=== PATIENT | female | born 1970 | race American Indian/Alaskan Native ===

== ENCOUNTER 2017-11-24 10:32 | Inpatient (IN) | payer OTHER ==
[2017-11-24] MEDS ORDERED: Vancomycin 1 GM 1 GM/250 ML BAG IV STA (11:14)
[2017-11-24] MEDS ORDERED: Cefepime IV 1 gm in Dextrose 1 GM/50 ML BAG IVPB STA (11:15)
[2017-11-24] MEDS ORDERED: Vancomycin 1 gm/NS 200 ml 1 GM/200 ML BAG IVPB STA (11:28)
[2017-11-24 11:40] LABS: BASO # 0.1 K/uL (0.0-0.2); BASO % 1.1 % (0.0-2.0); EOS # 0.1 K/uL (0.0-0.7); EOS % 0.7 % (0.0-4.0); HEMOGLOBIN 10.8 g/dL (11.0-16.0); LYMPH # 2.4 K/uL (1.0-4.3); MEAN CELL VOLUME 85.7 fL (81.0-99.0); MEAN CORPUSCULAR HEMOGLOBIN 29.9 pg (27.0-31.0); MEAN CORPUSCULAR HGB CONC 34.9 g/dL (33.0-37.0); MEAN PLATELET VOLUME 7.2 fL (7.2-11.7); MONO # 0.6 K/uL (0.0-0.8); MONO % 7.1 % (0.0-10.0); NEUT % 62.1 % (50.0-75.0); RBC 3.62 Mil/uL (3.80-5.20); RED CELL DISTRIBUTION WIDTH 14.6 % (11.5-14.5); WHITE BLOOD COUNT 8.1 K/uL (4.8-10.8)
[2017-11-24 12:37] LABS: ALB/GLOB RATIO 0.9 (1.0-2.1); ALBUMIN 3.5 g/dL (3.5-5.0); ALT/SGPT 13 U/L (9-52); AST/SGOT 21 U/L (14-36); BLOOD UREA NITROGEN 19 mg/dL (7-17); CALCIUM 8.7 mg/dl (8.6-10.4); GFR AFRICAN-AMERICAN > 60; GFR NON-AFRICAN AMERICAN 59
--- NOTE | 2017-11-24 12:54 | C.PDOC ---
History Of Present Illness 47 y/o female presents to ED with complaints of right foot pain and redness for unknown period of time ("months"). Patient states she saw her steersman recently (Dr. Ferreira) and was told she had cellulitis of the right foot "involving bone". He advised her to come to ED for admission. Patient admits to pain at the area; however denies fever, chills, sensory changes, falls/ injuries. Time Seen by Provider: 11/24/17 10:45 Chief Complaint (Nursing): Medical Clearance History Per: Patient History/Exam Limitations: no limitations Onset/Duration Of Symptoms: Persistent, Unknown (patient unsure of length of time) Current Symptoms Are (Timing): Still Present Severity: Moderate Past Medical History Reviewed: Historical Data, Nursing Documentation, Vital Signs Vital Signs: Last Vital Signs Temp 98.2 F 12/02/17 16:00 Pulse 86 12/02/17 16:00 Resp 20 12/02/17 16:00 BP 139/84 12/02/17 16:00 Pulse Ox 97 12/02/17 16:00 - Medical History PMH: HTN, Hypercholesterolemia Surgical History: No Surg Hx Family History: States: No Known Family Hx - Social History Hx Alcohol Use: Yes Hx Substance Use: No - Immunization History Hx Tetanus Toxoid Vaccination: No Hx Influenza Vaccination: Yes (07/2017) Hx Pneumococcal Vaccination: No Review Of Systems Except As Marked, All Systems Reviewed And Found Negative. Constitutional: Negative for: Fever, Chills Cardiovascular: Negative for: Chest Pain Respiratory: Negative for: Shortness of Breath Musculoskeletal: Positive for: Foot Pain Skin: Positive for: Other (Foot redness) Physical Exam - Physical Exam Appears: Well, Non-toxic, No Acute Distress Skin: Warm, Dry, No Rash Head: Normacephalic Eye(s): bilateral: Normal Inspection Oral Mucosa: Moist Neck: Supple Cardiovascular: Rhythm Regular Respiratory: Normal Breath Sounds, No Rales, No Rhonchi, No Wheezing Gastrointestinal/Abdominal: Normal Exam, Bowel Sounds, Soft, No Tenderness Extremity: No Deformity, Other (Lymphedema bialteral LEs) Extremity: Right: Other (Medial aspect of MTP joint with 2cm open wound. Erythematous & TTP), Bilateral: Normal ROM Pulses: Left Dorsalis Pedis: Normal, Right Dorsalis Pedis: Normal Neurological/Psych: Oriented x3, Normal Motor, Normal Sensation ED Course And Treatment - Laboratory Results Result Diagrams: 12/02/17 05:27 12/02/17 05:27 O2 Sat by Pulse Oximetry: 96 (RA) Pulse Ox Interpretation: Normal - Other Rad right foot Xray X-Ray: Interpreted by Me, Viewed By Me (no gas, no fx/dislocation, (+) soft tissue swelling) Progress Note: Blood work, Right foot xray ordered and reviewed. Patient given IV Vancomycin, IV Cefepime. - Physician Consult Information Physician Contacted: Randall Jamil Outcome Of Conversation: Discussed patient with Dr. Jamil, agrees with admission for foot celllulitis, possible osteomyelitis. Dr. Ferreira podiatry consult entered. Disposition - Disposition Disposition: HOSPITALIZED Disposition Time: 13:29 Condition: STABLE - Clinical Impression Clinical Impression: Cellulitis of right foot, Lymphedema, Osteomyelitis - Scribe Statement The provider has reviewed the documentation as recorded by the Tomaibmichael Murphy All medical record entries made by the Scribe were at my direction and personally dictated by me. I have reviewed the chart and agree that the record accurately reflects my personal performance of the history, physical exam, medical decision making, and the department course for this patient. I have also personally directed, reviewed, and agree with the discharge instructions and disposition. Decision To Admit - Pt Status Changed To: Hospital Disposition Of: Inpatient - Admit Certification Admit to Inpatient:: After my assessment, the patient will require hospitalization for at least two midnights. This is because of the severity of symptoms shown, intensity of services needed, and/or the medical risk in this patient being treated as an outpatient. - InPatient: Physician Admission Certification: I certify that this patient requires 2 or more midnights of care for the following reason:: see notes - . Bed Request Type: Regular Admitting Physician: Randall Jamil Patient Diagnosis: Cellulitis of right foot, Lymphedema, Osteomyelitis
--- NOTE | 2017-11-24 15:49 | RAD ---
PROCEDURE: Right Foot Radiographs. Two views. HISTORY: right medial foot wound COMPARISON: None available. FINDINGS: BONES: No acute displaced fracture. JOINTS: No dislocation. SOFT TISSUES: Extensive soft tissue swelling. Evidence of soft tissue irregularity or ulceration along the medial soft tissues at the level of the 1st PIP. Dense vascular calcification. No evidence of radiopaque foreign body. OTHER FINDINGS: None. IMPRESSION: Extensive soft tissue swelling. Evidence of soft tissue irregularity or ulceration along the medial soft tissues at the level of the 1st PIP.
[2017-11-24] MEDS ORDERED: Albuterol HFA 90 mcg/actuation (8 g) IH PRN (19:47)
[2017-11-24] MEDS ORDERED: Pneumococcal 23-Valent Vaccine IM ONE (20:30)
[2017-11-24] MEDS: Vancomycin 1 gm/NS 200 ml 1 GM/200 ML BAG IVPB SCH (21:55)
[2017-11-24] MEDS ORDERED: Potassium Chloride 20 mEq/15 ml LIQ UD PO ONE (22:00)
[2017-11-25 06:14] LABS: BASO # 0.1 K/uL (0.0-0.2); BASO % 0.8 % (0.0-2.0); EOS # 0.1 K/uL (0.0-0.7); EOS % 0.9 % (0.0-4.0); HEMOGLOBIN 10.1 g/dL (11.0-16.0); LYMPH # 2.6 K/uL (1.0-4.3); MEAN CELL VOLUME 86.3 fL (81.0-99.0); MEAN CORPUSCULAR HEMOGLOBIN 29.4 pg (27.0-31.0); MEAN PLATELET VOLUME 7.6 fL (7.2-11.7); MONO # 0.4 K/uL (0.0-0.8); MONO % 5.3 % (0.0-10.0); NEUT # 4.6 K/uL (1.8-7.0); RBC 3.44 Mil/uL (3.80-5.20); RED CELL DISTRIBUTION WIDTH 14.8 % (11.5-14.5); WHITE BLOOD COUNT 7.7 K/uL (4.8-10.8)
[2017-11-25 06:31] LABS: ALB/GLOB RATIO 0.9 (1.0-2.1); ALBUMIN 3.1 g/dL (3.5-5.0); ALT/SGPT 21 U/L (9-52); AST/SGOT 23 U/L (14-36); BLOOD UREA NITROGEN 14 mg/dL (7-17); CALCIUM 8.5 mg/dl (8.6-10.4); GFR AFRICAN-AMERICAN > 60; GFR NON-AFRICAN AMERICAN > 60
--- NOTE | 2017-11-25 09:29 | CP.PCM.CON ---
<Arpit Ferreira - Last Filed: 11/25/17 09:47> History of Present Illness - History of Present Illness History of Present Illness: 47 year old female admitted for non healing wound chronic in nature and cellulitis right leg and worsening painful edema of right leg over last 2 weeks. Review of Systems - Cardiovascular Cardiovascular: Leg Edema - Musculoskeletal Musculoskeletal: Joint Swelling - Integumentary Integumentary: Skin Ulcer Past Patient History - Past Medical History & Family History Past Medical History?: Yes - Past Social History Smoking Status: Never Smoked - CARDIAC Hx Cardiac Disorders: Yes Hx Hypercholesterolemia: Yes Hx Hypertension: Yes - PULMONARY Hx Respiratory Disorders: No - NEUROLOGICAL Hx Neurological Disorder: No - HEENT Hx HEENT Problems: No - RENAL Hx Chronic Kidney Disease: No - ENDOCRINE/METABOLIC Hx Endocrine Disorders: Yes Hx Diabetes Mellitus Type 2: Yes - HEMATOLOGICAL/ONCOLOGICAL Hx Blood Disorders: No - INTEGUMENTARY Hx Dermatological Problems: No - MUSCULOSKELETAL/RHEUMATOLOGICAL Hx Falls: No - GASTROINTESTINAL Hx Gastrointestinal Disorders: No - GENITOURINARY/GYNECOLOGICAL Hx Genitourinary Disorders: No - PSYCHIATRIC Hx Substance Use: No - SURGICAL HISTORY Hx Surgeries: Yes Hx Orthopedic Surgery: Yes (Right toe, Left foot) - ANESTHESIA Hx Anesthesia: Yes Hx Anesthesia Reactions: No Hx Malignant Hyperthermia: No Has any member of the family had a problem w/ anesthesia?: No Meds Allergies/Adverse Reactions: Allergies Allergy/AdvReac Type Severity Reaction Status Date / Time No Known Allergies Allergy Verified 11/24/17 10:39 - Medications Medications: Current Medications Albuterol (Ventolin Hfa 90 Mcg/Actuation (8 G)) 2 puff IH RQ6 PRN PRN Reason: Wheezing Amlodipine Besylate (Norvasc) 10 mg PO DAILY [facility] Furosemide (Lasix) 40 mg PO DAILY [facility] Heparin Sodium (Porcine) (Heparin) 5,000 units SC Q12 [facility] Vancomycin/Sodium Chloride (Vancomycin 1 Gm/Ns 200 Ml) 1 gm in 200 mls @ 133 mls/hr IVPB Q12H [facility] Stop: 11/29/17 21:01 Last Admin: 11/24/17 21:55 Dose: 133 mls/hr Magnesium Sulfate/Dextrose (Magnesium Sulfate 1 Gm/100 Ml D5w) 1 gm in 100 mls @ 200 mls/hr IVPB Q30M [facility] Stop: 11/25/17 10:29 Levetiracetam (Keppra) 500 mg PO BID [facility] Losartan Potassium (Cozaar) 100 mg PO DAILY [facility] Metformin HCl (Glucophage) 1,000 mg PO BID [facility] Potassium Chloride (Potassium Chloride Oral Soln) 40 meq PO Q4H [facility] Stop: 11/25/17 15:01 Rosuvastatin Calcium (Crestor) 10 mg PO DAILY [facility] Physical Exam - Extremities Exam Additional comments: O/chronic non-healing wound right mpj 1 right . Cellulitis right leg Increased Lymphedema right leg with Calf pain . LEFT LEG LYMPHEDEMA NO PAIN .XRAY SOFT TISSUE DEFECT WITH SWELLING AND VASCULAR CALCIFICATION . DIABETIC NEUROPATHY B/L . AMPUTATION TOE 2 LEFT 2010. Results - Vital Signs Recent Vital Signs: Last Vital Signs Temp 98.1 F 11/25/17 07:58 Pulse 75 11/25/17 07:58 Resp 20 11/25/17 07:58 BP 142/71 11/25/17 07:58 Pulse Ox 97 11/25/17 07:58 - Labs Result Diagrams: 11/25/17 06:06 11/25/17 06:06 Labs: Laboratory Results - last 24 hr 11/24/17 11/24/17 11/24/17 11:36 12:17 17:23 WBC 8.1 RBC 3.62 L Hgb 10.8 L Hct 31.0 L MCV 85.7 MCH 29.9 MCHC 34.9 RDW 14.6 H Plt Count 366 MPV 7.2 Neut % (Auto) 62.1 Lymph % (Auto) 29.0 [place] % (Auto) 7.1 Eos % (Auto) 0.7 Baso % (Auto) 1.1 Neut # (Auto) 5.0 Lymph # (Auto) 2.4 [place] # (Auto) 0.6 Eos # (Auto) 0.1 Baso # (Auto) 0.1 ESR 63 H Sodium 135 Potassium 3.5 L Chloride 98 Carbon Dioxide 22 Anion Gap 19 BUN 19 H Creatinine 1.0 Est GFR ( Amer) > 60 Est GFR (Non-Af Amer) 59 POC Glucose (mg/dL) 258 H Random Glucose 312 H Calcium 8.7 Phosphorus Magnesium Total Bilirubin 0.5 AST 21 ALT 13 Alkaline Phosphatase 85 Total Protein 7.5 Albumin 3.5 Globulin 4.0 H Albumin/Globulin Ratio 0.9 L 11/24/17 11/25/17 11/25/17 21:32 06:06 06:06 WBC 7.7 RBC 3.44 L Hgb 10.1 L Hct 29.6 L MCV 86.3 MCH 29.4 MCHC 34.0 RDW 14.8 H Plt Count 317 MPV 7.6 Neut % (Auto) 60.0 Lymph % (Auto) 33.0 [place] % (Auto) 5.3 Eos % (Auto) 0.9 Baso % (Auto) 0.8 Neut # (Auto) 4.6 Lymph # (Auto) 2.6 [place] # (Auto) 0.4 Eos # (Auto) 0.1 Baso # (Auto) 0.1 ESR Sodium 137 Potassium 3.2 L Chloride 100 Carbon Dioxide 26 Anion Gap 15 BUN 14 Creatinine 0.9 Est GFR ( Amer) > 60 Est GFR (Non-Af Amer) > 60 POC Glucose (mg/dL) 323 H Random Glucose 225 H Calcium 8.5 L Phosphorus 3.4 Magnesium 1.3 L Total Bilirubin 0.3 AST 23 ALT 21 Alkaline Phosphatase 78 Total Protein 6.7 Albumin 3.1 L Globulin 3.6 Albumin/Globulin Ratio 0.9 L 11/25/17 07:15 WBC RBC Hgb Hct MCV MCH MCHC RDW Plt Count MPV Neut % (Auto) Lymph % (Auto) [place] % (Auto) Eos % (Auto) Baso % (Auto) Neut # (Auto) Lymph # (Auto) [place] # (Auto) Eos # (Auto) Baso # (Auto) ESR Sodium Potassium Chloride Carbon Dioxide Anion Gap BUN Creatinine Est GFR ( Amer) Est GFR (Non-Af Amer) POC Glucose (mg/dL) 208 H Random Glucose Calcium Phosphorus Magnesium Total Bilirubin AST ALT Alkaline Phosphatase Total Protein Albumin Globulin Albumin/Globulin Ratio Assessment & Plan - Assessment and Plan (Free Text) Assessment: A/NON-HEALING WOUND CHRONIC MPJ 1 WITH INFECTION . LYMPHEDEMA Plan: P/VENOUS DUPLEX SCAN MRI ORDERED .C&S OF WOUND . VANCOMYCIN STARTED <Yue Juárez - Last Filed: 11/25/17 13:26> History of Present Illness - History of Present Illness History of Present Illness: Patient is well known to Dr. Ferreira. She presents with chronic open ulceration to medial aspect of right 1st MTPJ. Patient also complains of Right calf pain. Patient was informed that venous Doppler will be performed to r/o DVT. Patient denies of any N/V/F/C or SOB today Review of Systems - Constitutional Constitutional: As Per HPI Meds - Medications Medications: Current Medications Acetaminophen (Tylenol 325mg Tab) 650 mg PO Q8 PRN PRN Reason: Pain, Mild (1-3) Last Admin: 11/25/17 12:45 Dose: 650 mg Albuterol (Ventolin Hfa 90 Mcg/Actuation (8 G)) 2 puff IH RQ6 PRN PRN Reason: Wheezing Amlodipine Besylate (Norvasc) 10 mg PO DAILY [facility] Last Admin: 11/25/17 11:05 Dose: 10 mg Furosemide (Lasix) 40 mg PO DAILY [facility] Last Admin: 11/25/17 11:12 Dose: 40 mg Heparin Sodium (Porcine) (Heparin) 5,000 units SC Q12 [facility] Last Admin: 11/25/17 11:10 Dose: 5,000 units Vancomycin/Sodium Chloride (Vancomycin 1 Gm/Ns 200 Ml) 1 gm in 200 mls @ 133 mls/hr IVPB Q12H [facility] Stop: 11/29/17 21:01 Last Admin: 11/25/17 11:14 Dose: 133 mls/hr Levetiracetam (Keppra) 500 mg PO BID [facility] Last Admin: 11/25/17 11:09 Dose: 500 mg Losartan Potassium (Cozaar) 100 mg PO DAILY [facility] Last Admin: 11/25/17 11:11 Dose: 100 mg Metformin HCl (Glucophage) 1,000 mg PO BID [facility] Last Admin: 11/25/17 11:10 Dose: 1,000 mg Potassium Chloride (Potassium Chloride Oral Soln) 40 meq PO Q4H [facility] Stop: 11/25/17 15:01 Last Admin: 11/25/17 11:04 Dose: 40 meq Rosuvastatin Calcium (Crestor) 10 mg PO DAILY [facility] Last Admin: 11/25/17 11:11 Dose: 10 mg Physical Exam - Constitutional Appears: Well, Non-toxic, No Acute Distress - Head Exam Head Exam: ATRAUMATIC - Extremities Exam Additional comments: Right lower extremity exam DERM: Open wound noted to medial aspect of right 1st MTPJ measuring 3m x 3cm x 0.3cm with mostly fibrotic base. Mild serous drainage is noted from th wound. No purulent discharge noted. Wound margins appears slightly necrotic with dark discolorations, not dried blood. No mal-odor present. - Neurological Exam Neurological exam: Alert, Oriented x3 - Psychiatric Exam Psychiatric exam: Normal Affect, Normal Mood - Skin Skin Exam: Normal Color, Warm Results - Vital Signs Recent Vital Signs: Last Vital Signs Temp 98.1 F 11/25/17 07:58 Pulse 75 11/25/17 07:58 Resp 20 11/25/17 07:58 BP 142/72 11/25/17 11:12 Pulse Ox 97 11/25/17 07:58 - Labs Result Diagrams: 11/25/17 06:06 11/25/17 06:06 Labs: Laboratory Results - last 24 hr 11/24/17 11/24/17 11/25/17 17:23 21:32 06:06 WBC 7.7 RBC 3.44 L Hgb 10.1 L Hct 29.6 L MCV 86.3 MCH 29.4 MCHC 34.0 RDW 14.8 H Plt Count 317 MPV 7.6 Neut % (Auto) 60.0 Lymph % (Auto) 33.0 [place] % (Auto) 5.3 Eos % (Auto) 0.9 Baso % (Auto) 0.8 Neut # (Auto) 4.6 Lymph # (Auto) 2.6 [place] # (Auto) 0.4 Eos # (Auto) 0.1 Baso # (Auto) 0.1 Sodium Potassium Chloride Carbon Dioxide Anion Gap BUN Creatinine Est GFR ( Amer) Est GFR (Non-Af Amer) POC Glucose (mg/dL) 258 H 323 H Random Glucose Calcium Phosphorus Magnesium Total Bilirubin AST ALT Alkaline Phosphatase Total Protein Albumin Globulin Albumin/Globulin Ratio 11/25/17 11/25/17 06:06 07:15 WBC RBC Hgb Hct MCV MCH MCHC RDW Plt Count MPV Neut % (Auto) Lymph % (Auto) [place] % (Auto) Eos % (Auto) Baso % (Auto) Neut # (Auto) Lymph # (Auto) [place] # (Auto) Eos # (Auto) Baso # (Auto) Sodium 137 Potassium 3.2 L Chloride 100 Carbon Dioxide 26 Anion Gap 15 BUN 14 Creatinine 0.9 Est GFR ( Amer) > 60 Est GFR (Non-Af Amer) > 60 POC Glucose (mg/dL) 208 H Random Glucose 225 H Calcium 8.5 L Phosphorus 3.4 Magnesium 1.3 L Total Bilirubin 0.3 AST 23 ALT 21 Alkaline Phosphatase 78 Total Protein 6.7 Albumin 3.1 L Globulin 3.6 Albumin/Globulin Ratio 0.9 L Assessment & Plan - Assessment and Plan (Free Text) Plan: Patient was seen, evaluated by bedside this AM Labs and Vitals reviewed Right foot dressed wiht Xeroform, DSD Xray - no mention of OM MRI result pending Arterial doppler pending Venous doppler pending WCX pending Continue IV Abx Podiatry will continue to follow in house
[2017-11-25] MEDS ORDERED: Influenza Vaccine 60 mcg/0.5 mL SYR (4YR UP) IM ONE (10:00)
[2017-11-25] MEDS: Vancomycin 1 gm/NS 200 ml 1 GM/200 ML BAG IVPB SCH ×3 (10:51→21:45)
[2017-11-25] MEDS: Potassium Chloride 20 mEq/15 ml LIQ UD PO SCH ×2 (11:04→15:18)
[2017-11-25] MEDS: Magnesium Sulfate 1 gm in D5W 1 GM/100 ML BAG IVPB SCH (11:12)
--- NOTE | 2017-11-25 13:28 | VASCLAB ---
PROCEDURE: HISTORY: Right lower extremity pain. COMPARISON: None available. TECHNIQUE: Grayscale and duplex Doppler evaluation of the right common femoral, femoral, profunda femoral, popliteal, posterior tibial, anterior tibial and dorsalis pedis arteries was performed. Report prepared by SHERWIN Villafuerte FINDINGS: RIGHT LOWER EXTREMITY: * Common Femoral Artery: Peak Systolic Velocity - : Doppler Waveform: Triphasic.: Plaque description - * Profunda Femoral Artery: Peak Systolic Velocity - : Doppler Waveform: Biphasic.: Plaque description - * Femoral Artery o Proximal Segment: Peak Systolic Velocity - : Doppler Waveform: Monophasic: Plaque description - o Middle Segment: Peak Systolic Velocity - : Doppler Waveform: Monophasic: Plaque description - o Distal Segment: Peak Systolic Velocity - : Doppler Waveform: Monophasic: Plaque description - * Popliteal Artery o Proximal Segment: Peak Systolic Velocity - : Doppler Waveform: Monophasic: Plaque description - o Middle Segment: Peak Systolic Velocity - : Doppler Waveform: Monophasic: Plaque description - o Distal Segment: Peak Systolic Velocity - : Doppler Waveform: Monophasic: Plaque description - * Posterior Tibial Artery: * Anterior Tibial Artery: Peak Systolic Velocity - : Doppler Waveform: Monophasic: Plaque description - OTHER FINDINGS: Technically difficult examination due to patient body habitus. IMPRESSION: There is no evidence of hemodynamically significant arterial insufficiency in the right lower extremity.
--- NOTE | 2017-11-25 15:30 | CP.PCM.PN ---
Subjective - Date & Time of Evaluation Date of Evaluation: 11/25/17 Time of Evaluation: 07:45 - Subjective Subjective: PGY2 Resident - Medicine Progress Note This 47 y/o female with PMHx of HTN, HLD, DM, Anemia, Chronic R lower extremity Lymphadenopathy (4 years), and Cellulitis of the R foot x 6 months - presents to the ED on 11/24/17 with complaints of right foot pain and redness for approximately 6 months. Patient states she saw [facility] recently and was told she had celulitis on right foot involving the bone. Tunnel Man Dr. Ferreira advised patient she come to ED for admission. At ED patient admits pain to area and denies fever, chills, numbness, weakness or any other complaints at this time. Patient seen and examined at bedside. No acute distress. No overnight events. Patient complains of pain of the R lower extremity, at both the foot and lower mcmanus (marked lymphadenopathy present for nearly 4 years). The right foot is wrapped in gauze. She is tolerating her diet and awaiting further evaluation by Dr. Ferreira. Denies f/c, lethargy, n/v, or d/c. 12-point review of systems is otherwise negative without any additional acute complaints. PMHx: HTN, HLD, DM, Anemia, Chronic R lower extremity Lymphadenopathy (4 years) , and Cellulitis of the R foot x 6 months PSHx: L 2nd toe amputation Meds: see EMR NKDA FamHx: denies Objective - Vital Signs/Intake and Output Vital Signs (last 24 hours): Temp Pulse Resp BP Pulse Ox 98.1 F 75 20 142/72 97 11/25/17 07:58 11/25/17 07:58 11/25/17 07:58 11/25/17 11:12 11/25/17 07:58 Intake and Output: 11/25/17 11/25/17 06:59 18:59 Intake Total 920 Balance 920 - Medications Medications: Current Medications Acetaminophen (Tylenol 325mg Tab) 650 mg PO Q8 PRN PRN Reason: Pain, Mild (1-3) Last Admin: 11/25/17 12:45 Dose: 650 mg Albuterol (Ventolin Hfa 90 Mcg/Actuation (8 G)) 2 puff IH RQ6 PRN PRN Reason: Wheezing Amlodipine Besylate (Norvasc) 10 mg PO DAILY [facility] Last Admin: 11/25/17 11:05 Dose: 10 mg Furosemide (Lasix) 40 mg PO DAILY [facility] Last Admin: 11/25/17 11:12 Dose: 40 mg Heparin Sodium (Porcine) (Heparin) 5,000 units SC Q12 [facility] Last Admin: 11/25/17 11:10 Dose: 5,000 units Vancomycin/Sodium Chloride (Vancomycin 1 Gm/Ns 200 Ml) 1 gm in 200 mls @ 133 mls/hr IVPB Q12H [facility] Stop: 11/29/17 21:01 Last Admin: 11/25/17 11:14 Dose: 133 mls/hr Levetiracetam (Keppra) 500 mg PO BID [facility] Last Admin: 11/25/17 11:09 Dose: 500 mg Losartan Potassium (Cozaar) 100 mg PO DAILY [facility] Last Admin: 11/25/17 11:11 Dose: 100 mg Metformin HCl (Glucophage) 1,000 mg PO BID [facility] Last Admin: 11/25/17 11:10 Dose: 1,000 mg Rosuvastatin Calcium (Crestor) 10 mg PO DAILY [facility] Last Admin: 11/25/17 11:11 Dose: 10 mg - Labs Labs: 11/25/17 06:06 11/25/17 06:06 - Constitutional Appears: Non-toxic, No Acute Distress - Head Exam Head Exam: ATRAUMATIC, NORMAL INSPECTION - Eye Exam Eye Exam: Normal appearance, Periorbital tenderness Pupil Exam: NORMAL ACCOMODATION - ENT Exam ENT Exam: Mucous Membranes Moist - Neck Exam Neck Exam: Full ROM. absent: Tenderness - Respiratory Exam Respiratory Exam: Clear to Ausculation Bilateral, NORMAL BREATHING PATTERN. absent: Wheezes - Cardiovascular Exam Cardiovascular Exam: REGULAR RHYTHM, +S1, +S2 - GI/Abdominal Exam GI & Abdominal Exam: Soft, Normal Bowel Sounds. absent: Tenderness - Extremities Exam Extremities Exam: Pedal Edema (R), Tenderness (R) Additional comments: -medial aspect of right 1st MTPJ measuring 3m x 3cm x 0.3cm with mostly fibrotic base; serous drainage -R foot / calf edema, non-pitting 2/2 lymphedema (chronic), tender to palpation - Back Exam Back Exam: NORMAL INSPECTION. absent: CVA tenderness (L), CVA tenderness (R) - Neurological Exam Neurological Exam: Alert, Awake, Oriented x3 - Psychiatric Exam Psychiatric exam: Normal Affect, Normal Mood - Skin Skin Exam: Dry, Intact, Normal Color Assessment and Plan - Assessment and Plan (Free Text) Assessment: Osteomyelitis of R Foot 11/25: afebrile; Podiatry Consult, Dr. Ferreira, f/u recs - Lymphedema of R Foot (chronic) Tylenol 325mg Tab) 650 mg PO Q8 PRN Vancomycin 1 Gm/Ns 200 Ml) 1 gm in 200 mls @ 133 mls/hr IVPB Q12H [facility] Right foot dressed wiht Xeroform, DSD Xray - no mention of OM f/u MRI result f/u Arterial doppler f/u Venous doppler f/u wound culture Hypertension 11/25: 146/75 - WNL, monitor. Norvasc) 10 mg PO DAILY [facility] Lasix) 40 mg PO DAILY [facility] Cozaar) 100 mg PO DAILY [facility] HLD Crestor) 10 mg PO DAILY [facility] Diabetes Glucophage) 1,000 mg PO BID [facility] Novolog ISS - medium dose hold Lantus Anemia Hgb 10.1 - stable, continue to monitor Electrolyte Imbalance -Hypokalemia, K 3.2 - monitor and replete -Hypomagnesemia, Mg 1.3 - monitor and replete Prophylaxis Ventolin Hfa 90 Mcg/Actuation (8 G)) 2 puff IH RQ6 PRN Heparin) 5,000 units SC Q12 [facility] Pepcid 20mg PO qD Case discussed with attending. All medical management as per Dr. Sean Wagner.
--- NOTE | 2017-11-25 16:32 | MRI ---
MRI right forefoot History: Infection. Comparison: X-ray dated 11/24/2017 Technique: Multi-echo multiplanar sequences were performed through the right forefoot without the use of intravenous contrast. Findings: Marked reticulation and edema seen within the dorsal soft tissues of the mid and forefoot which may represent an underlying cellulitis. Prominent soft tissue ulceration seen at the medial soft tissues at the level of the 1st proximal phalanx. Moderate to severe hallux valgus deformity. Prominent degenerative changes noted at the 1st MTP joint space with subchondral sclerosis and osteophytosis. Small rounded focal area of increased STIR and decreased T1 signal noted at the 1st metatarsal head near the articulation with the medial sesamoid bone. Additional minimal increased signal seen at the medial head of the 1st metatarsal bone. This may be the sequelae of osteochondral change or developing subchondral cyst formation versus inflammatory changes versus infectious changes versus additional etiology. Subtle and or early acute developing osteomyelitic changes cannot entirely be excluded at this level. Clinical correlation. Focal signal abnormality within the 2nd distal phalanx with decreased T1 signal and increased STIR signal which would be concerning for possible acute osteomyelitis. Clinical correlation. Additional reactive edema without gross corresponding decreased T1 signal seen at the 2nd middle phalanx which may represent developing and or early acute osteomyelitic changes. Clinical correlation. Prominent degenerative changes in the midfoot. Impression: 1. Focal signal abnormality within the 2nd distal phalanx with decreased T1 signal and increased STIR signal which would be concerning for possible acute osteomyelitis. Clinical correlation. Additional reactive edema without gross corresponding decreased T1 signal seen at the 2nd middle phalanx which may represent developing and or early acute osteomyelitic changes. Clinical correlation. 2. Prominent soft tissue ulceration seen at the medial soft tissues at the level of the 1st proximal phalanx. Moderate to severe hallux valgus deformity. Prominent degenerative changes noted at the 1st MTP joint space with subchondral sclerosis and osteophytosis. Small rounded focal area of increased STIR and decreased T1 signal noted at the 1st metatarsal head near the articulation with the medial sesamoid bone. Additional minimal increased signal seen at the medial head of the 1st metatarsal bone. This may be the sequelae of osteochondral change or developing subchondral cyst formation versus inflammatory changes versus infectious changes versus additional etiology. Subtle and or early acute developing osteomyelitic changes cannot entirely be excluded at this level. Clinical correlation. 3. Marked reticulation and edema seen within the dorsal soft tissues of the mid and forefoot which may represent an underlying cellulitis.
[2017-11-25] MEDS: (Novolog) Insulin Aspart, Recombinant 100 u/ml 10 ml vial SC SCH ×2 (17:22→21:45)
--- NOTE | 2017-11-26 06:15 | HP ---
HISTORY: A 47-year-old female admitted to the hospital with complaints of redness of the left foot. The patient has history of diabetes, insulin dependent. She is on NovoLog, Levemir. The patient is followed up by a customer equipment engineer, Dr. Ferreira, The patient has a history of lymphedema in the right lower extremity. PHYSICAL EXAMINATION: GENERAL: The patient is awake, alert. and obese. VITAL SIGNS: Temperature of 98, pulse of 90. HEENT: Within normal limits. NECK: Supple. CHEST: Symmetrical. HEART: Regular. ABDOMEN: Soft. EXTREMITIES; There is a nonpitting edema in the right leg, right foot in dressing. IMPRESSION: Osteomyelitis of the right foot. The patient will get IV antibiotics, infectious disease consult, podiatry consult. Randall Wagner MD
[2017-11-26 06:26] LABS: BASO # 0.1 K/uL (0.0-0.2); BASO % 0.8 % (0.0-2.0); EOS # 0.1 K/uL (0.0-0.7); EOS % 1.1 % (0.0-4.0); HEMOGLOBIN 10.7 g/dL (11.0-16.0); LYMPH # 2.7 K/uL (1.0-4.3); LYMPH % 35.6 % (20.0-40.0); MEAN CELL VOLUME 86.6 fL (81.0-99.0); MEAN CORPUSCULAR HEMOGLOBIN 31.6 pg (27.0-31.0); MEAN CORPUSCULAR HGB CONC 36.5 g/dL (33.0-37.0); MEAN PLATELET VOLUME 7.6 fL (7.2-11.7); MONO # 0.4 K/uL (0.0-0.8); MONO % 5.4 % (0.0-10.0); NEUT # 4.3 K/uL (1.8-7.0); NEUT % 57.1 % (50.0-75.0); NRBC % 0.2 % (0.0-2.0); RBC 3.39 Mil/uL (3.80-5.20); RED CELL DISTRIBUTION WIDTH 15.1 % (11.5-14.5); WHITE BLOOD COUNT 7.6 K/uL (4.8-10.8)
[2017-11-26 06:43] LABS: ALB/GLOB RATIO 0.9 (1.0-2.1); ALBUMIN 3.2 g/dL (3.5-5.0); ALT/SGPT 20 U/L (9-52); AST/SGOT 27 U/L (14-36); BLOOD UREA NITROGEN 13 mg/dL (7-17); CALCIUM 8.8 mg/dl (8.6-10.4); GFR AFRICAN-AMERICAN > 60; GFR NON-AFRICAN AMERICAN > 60
[2017-11-26] MEDS: (Novolog) Insulin Aspart, Recombinant 100 u/ml 10 ml vial SC SCH ×4 (07:30→21:36)
--- NOTE | 2017-11-26 09:50 | CP.PCM.PN ---
Subjective - Date & Time of Evaluation Date of Evaluation: 11/26/17 Time of Evaluation: 07:40 - Subjective Subjective: PGY2 Resident - Medicine Progress Note Patient seen and examined at bedside. No acute distress. No overnight events. Patient reports pain of the R lower extremity is well controlled (osteomyelitis of the R foot and chronic lymphadenopathy of the R LE). The right foot is wrapped in gauze. She is tolerating her diet. Being followed by Dr. Ferreira. Denies f/c, lethargy, n/v, or d/c. 12-point review of systems is otherwise negative without any additional acute complaints. Objective - Vital Signs/Intake and Output Vital Signs (last 24 hours): Temp Pulse Resp BP Pulse Ox 98.3 F 72 20 147/75 97 11/26/17 08:00 11/26/17 08:00 11/26/17 08:00 11/26/17 08:00 11/26/17 08:00 Intake and Output: 11/26/17 11/26/17 06:59 18:59 Intake Total 360 Balance 360 - Medications Medications: Current Medications Acetaminophen (Tylenol 325mg Tab) 650 mg PO Q8 PRN PRN Reason: Pain, Mild (1-3) Last Admin: 11/25/17 12:45 Dose: 650 mg Albuterol (Ventolin Hfa 90 Mcg/Actuation (8 G)) 2 puff IH RQ6 PRN PRN Reason: Wheezing Amlodipine Besylate (Norvasc) 10 mg PO DAILY [facility] Last Admin: 11/25/17 11:05 Dose: 10 mg Famotidine (Pepcid) 20 mg PO DAILY [facility] Furosemide (Lasix) 40 mg PO DAILY [facility] Last Admin: 11/25/17 11:12 Dose: 40 mg Heparin Sodium (Porcine) (Heparin) 5,000 units SC Q12 [facility] Last Admin: 11/25/17 21:45 Dose: 5,000 units Vancomycin/Sodium Chloride (Vancomycin 1 Gm/Ns 200 Ml) 1 gm in 200 mls @ 133 mls/hr IVPB Q12H [facility] Stop: 11/29/17 21:01 Last Admin: 11/25/17 21:45 Dose: 133 mls/hr Magnesium Sulfate/Dextrose (Magnesium Sulfate 1 Gm/100 Ml D5w) 1 gm in 100 mls @ 200 mls/hr IVPB Q30M [facility] Stop: 11/26/17 17:59 Insulin Aspart (Novolog) 0 unit SC ACHS [facility] PRN Reason: Protocol Insulin Detemir (Levemir) 10 unit SC Q12H [facility] Levetiracetam (Keppra) 500 mg PO BID [facility] Last Admin: 11/25/17 17:21 Dose: 500 mg Losartan Potassium (Cozaar) 100 mg PO DAILY [facility] Last Admin: 11/25/17 11:11 Dose: 100 mg Metformin HCl (Glucophage) 1,000 mg PO BID [facility] Last Admin: 11/25/17 17:21 Dose: 1,000 mg Rosuvastatin Calcium (Crestor) 10 mg PO DAILY [facility] Last Admin: 11/25/17 11:11 Dose: 10 mg - Labs Labs: 11/26/17 06:16 11/26/17 06:16 - Additional Findings Additional findings: - Constitutional Appears: Non-toxic, No Acute Distress - Head Exam Head Exam: ATRAUMATIC, NORMAL INSPECTION - Eye Exam Eye Exam: Normal appearance, Periorbital tenderness Pupil Exam: NORMAL ACCOMODATION - ENT Exam ENT Exam: Mucous Membranes Moist - Neck Exam Neck Exam: Full ROM. absent: Tenderness - Respiratory Exam Respiratory Exam: Clear to Ausculation Bilateral, NORMAL BREATHING PATTERN. absent: Wheezes - Cardiovascular Exam Cardiovascular Exam: REGULAR RHYTHM, +S1, +S2 - GI/Abdominal Exam GI & Abdominal Exam: Soft, Normal Bowel Sounds. absent: Tenderness - Extremities Exam Extremities Exam: Pedal Edema (R), Tenderness (R) Additional comments: -medial aspect of right 1st MTPJ measuring 3m x 3cm x 0.3cm with mostly fibrotic base -R foot / calf edema, non-pitting 2/2 lymphedema (chronic), tender to palpation - Back Exam Back Exam: NORMAL INSPECTION. absent: CVA tenderness (L), CVA tenderness (R) - Neurological Exam Neurological Exam: Alert, Awake, Oriented x3 - Psychiatric Exam Psychiatric exam: Normal Affect, Normal Mood - Skin Skin Exam: Dry, Intact, Normal Color Assessment and Plan - Assessment and Plan (Free Text) Assessment: Osteomyelitis of R Foot 11/26: Afebrile. WBC 7.6. Patient did not receive last dose of Vanco 2/2 difficult needle stick (lost line). Awaiting PICC placement. MRI R Forefoot 11/25/17 - 2nd distal phalynx osteomyelitis; R foot cellulitis; 1st proximal phalynx soft tissue ulceration. see full report. Patient did not receive last dose of Vanco 2/2 difficult needle stick. She is awaiting placement of PICC line. Wound culture positive for - Corynebacterium (prelim) ID Consult, Dr. Deleon, f/u recs. 36: afebrile; Podiatry Consult, Dr. Ferreira, f/u recs - Lymphedema of R Foot (chronic) Tylenol 325mg Tab) 650 mg PO Q8 PRN Vancomycin 1 Gm/Ns 200 Ml) 1 gm in 200 mls @ 133 mls/hr IVPB Q12H [facility] Right foot dressed wiht Xeroform, DSD Xray - no mention of OM f/u Arterial doppler f/u Venous doppler Hypertension 11/25: 146/75 - WNL, monitor. Norvasc) 10 mg PO DAILY [facility] Lasix) 40 mg PO DAILY [facility] Cozaar) 100 mg PO DAILY [facility] HLD Crestor) 10 mg PO DAILY [facility] Diabetes 11/26: Her glucose ashlyn to 358; Resume Levemir 10u Q12H. Novolog ISS inc to high dose Glucophage) 1,000 mg PO BID [facility] Novolog ISS - medium dose Anemia Hgb 10.1 - stable, continue to monitor Electrolyte Imbalance 11/26: Hypomagnesemia, Mg 1.4 - monitor and replete 11/25: Hypokalemia, K 3.2 - Resolved 11/25: Hypomagnesemia, Mg 1.3 - monitor and replete Prophylaxis Ventolin Hfa 90 Mcg/Actuation (8 G)) 2 puff IH RQ6 PRN Heparin) 5,000 units SC Q12 [facility] Pepcid 20mg PO qD Case discussed with attending. All medical management as per Dr. Sean Wagner.
[2017-11-26] MEDS ORDERED: INSULIN DETEMIR 10 UNIT SC SCH (10:00)
[2017-11-26] MEDS: Vancomycin 1 gm/NS 200 ml 1 GM/200 ML BAG IVPB SCH ×2 (10:31→21:38)
--- NOTE | 2017-11-26 10:34 | CP.PCM.PN ---
Subjective - Date & Time of Evaluation Date of Evaluation: 11/26/17 Time of Evaluation: 10:31 - Subjective Subjective: 47 year old female patient with PMHx of HTN was seen at bedside this morning concerning right foot cellulitis and open wound. Patient was resting comfortably in bed AAO x3. NAD. Dressing to right foot remains wet and dirty. Patient was advised to keep the dressing clean dry and intact. Patient admits to mild pain to right foot medial aspect of 1st MTPJ where superficial ulceration is noted. Patient denies of any N/V/F/C or SOB today Objective - Vital Signs/Intake and Output Vital Signs (last 24 hours): Temp Pulse Resp BP Pulse Ox 98.3 F 72 20 147/75 97 11/26/17 08:00 11/26/17 08:00 11/26/17 08:00 11/26/17 08:00 11/26/17 08:00 Intake and Output: 11/26/17 11/26/17 06:59 18:59 Intake Total 360 Balance 360 - Medications Medications: Current Medications Acetaminophen (Tylenol 325mg Tab) 650 mg PO Q8 PRN PRN Reason: Pain, Mild (1-3) Last Admin: 11/25/17 12:45 Dose: 650 mg Albuterol (Ventolin Hfa 90 Mcg/Actuation (8 G)) 2 puff IH RQ6 PRN PRN Reason: Wheezing Amlodipine Besylate (Norvasc) 10 mg PO DAILY [facility] Last Admin: 11/25/17 11:05 Dose: 10 mg Famotidine (Pepcid) 20 mg PO DAILY [facility] Furosemide (Lasix) 40 mg PO DAILY [facility] Last Admin: 11/25/17 11:12 Dose: 40 mg Heparin Sodium (Porcine) (Heparin) 5,000 units SC Q12 [facility] Last Admin: 11/25/17 21:45 Dose: 5,000 units Vancomycin/Sodium Chloride (Vancomycin 1 Gm/Ns 200 Ml) 1 gm in 200 mls @ 133 mls/hr IVPB Q12H [facility] Stop: 11/29/17 21:01 Last Admin: 11/25/17 21:45 Dose: 133 mls/hr Magnesium Sulfate/Dextrose (Magnesium Sulfate 1 Gm/100 Ml D5w) 1 gm in 100 mls @ 200 mls/hr IVPB Q30M [facility] Stop: 03/07/18 17:59 Insulin Aspart (Novolog) 0 unit SC ACHS [facility] PRN Reason: Protocol Insulin Detemir (Levemir) 10 unit SC Q12H [facility] Levetiracetam (Keppra) 500 mg PO BID [facility] Last Admin: 11/25/17 17:21 Dose: 500 mg Losartan Potassium (Cozaar) 100 mg PO DAILY [facility] Last Admin: 11/25/17 11:11 Dose: 100 mg Metformin HCl (Glucophage) 1,000 mg PO BID [facility] Last Admin: 11/25/17 17:21 Dose: 1,000 mg Rosuvastatin Calcium (Crestor) 10 mg PO DAILY [facility] Last Admin: 11/25/17 11:11 Dose: 10 mg - Labs Labs: 11/26/17 06:16 11/26/17 06:16 - Constitutional Appears: Well, Non-toxic, No Acute Distress - Head Exam Head Exam: ATRAUMATIC - Extremities Exam Additional comments: Right lower extremity exam DERM: Open wound noted to medial aspect of right 1st MTPJ measuring 3m x 3cm x 0.3cm with mostly fibrotic base. Mild serous drainage is noted from th wound. No purulent discharge noted. Wound margins appears slightly necrotic with dark discolorations, not dried blood. No mal-odor present. ORTHO: Mild pain on palpation in passive ROM to joints distal to ankle bilaterally VASC: Non-palpable DP and PT noteded bilaterally. OPHTHALMIC PHOTOGRAPHER less than 3 seconds to all digits NEURO: Gross sensation intact - Neurological Exam Neurological Exam: Alert, Awake, Oriented x3 - Psychiatric Exam Psychiatric exam: Normal Affect, Normal Mood - Skin Skin Exam: Normal Color, Warm Assessment and Plan - Assessment and Plan (Free Text) Assessment: 47 yo female patient presenting right foot cellulitis and chronic superficial ulceration to right 1st MTPJ Plan: Patient was seen, evaluated by bedside this AM Labs and Vitals reviewed Discussed in detail with attending Dr. Ferreira Right foot dressed with Xeroform, DSD Xray - no mention of OM MRI result pending Arterial doppler pending Venous doppler pending WCX- Gran (+) coddi, Corynebacterium Prelim Continue IV Abx Podiatry will continue to follow in house
--- NOTE | 2017-11-26 10:40 | VASCLAB ---
PROCEDURE: Lower Extremity Venous Duplex Exam. HISTORY: r/o DVT. Patient c/o calf pain PRIORS: None. TECHNIQUE: Bilateral common femoral, femoral, popliteal and posterior tibial, peroneal and great saphenous veins were evaluated. Flow was assessed with color Doppler, compressibility, assessment of phasic flow and augmentation response. Report prepared by Anjum Martinez, JANETTE, RVT FINDINGS: RIGHT: 1. Common Femoral Vein: 1.1. Compressibility - Fully compressible: Thrombus - None : Flow - Phasic: Augmentation -Normal: Reflux - None. 2. Femoral Vein: 2.1. Compressibility - Fully compressible: Thrombus - None : Flow - Phasic: Augmentation -Normal: Reflux - None. 3. Popliteal Vein: 3.1. Compressibility - Fully compressible: Thrombus - None : Flow - Phasic: Augmentation -Normal: Reflux - None. 4. Posterior Tibial Vein: 4.1. Compressibility - Fully compressible: Thrombus - None: Flow - Phasic: Augmentation -Normal: Reflux - None. 5. Peroneal Vein: 5.1. Compressibility - Fully compressible: Thrombus - None: Flow - Phasic: Augmentation -Normal: Reflux - None. 6. Great Saphenous Vein: 6.1. Compressibility - Fully compressible: Thrombus - None: Flow - Phasic: Augmentation - Normal: Reflux - None. LEFT: 1. Common Femoral Vein: 1.1. Compressibility - Fully compressible: Thrombus - None: Flow - Phasic: Augmentation -Normal: Reflux - None. 2. Femoral Vein: 2.1. Compressibility - Fully compressible: Thrombus - None: Flow - Phasic: Augmentation -Normal: Reflux - None. 3. Popliteal Vein: 3.1. Compressibility - Fully compressible: Thrombus - None : Flow - Phasic: Augmentation -Normal: Reflux - None. 4. Posterior Tibial Vein: 4.1. Compressibility - Fully compressible: Thrombus - None: Flow - Phasic: Augmentation -Normal: Reflux - None. 5. Peroneal Vein: 5.1. Compressibility - Fully compressible: Thrombus - None: Flow - Phasic: Augmentation -Normal: Reflux - None. 6. Great Saphenous Vein: 6.1. Compressibility - Fully compressible: Thrombus - None: Flow - Phasic: Augmentation - Normal: Reflux - None. OTHER FINDINGS: Right: None significant. Left: None significant. IMPRESSION: Right: No evidence of deep or superficial vein thrombosis of the right lower extremity. Normal valve function noted of the right side. Left: No evidence of deep or superficial vein thrombosis of the left lower extremity. Normal valve function noted of the left side.
[2017-11-26] MEDS: Insulin Detemir 100 units/ml Vial (Levemir) SC SCH ×2 (11:14→21:36)
[2017-11-26] MEDS: Magnesium Sulfate 1 gm in D5W 1 GM/100 ML BAG IVPB SCH ×2 (17:00→17:41)
[2017-11-27 07:20] LABS: BASO # 0.1 K/uL (0.0-0.2); BASO % 0.9 % (0.0-2.0); EOS # 0.1 K/uL (0.0-0.7); EOS % 1.3 % (0.0-4.0); HEMOGLOBIN 10.2 g/dL (11.0-16.0); LYMPH # 2.3 K/uL (1.0-4.3); LYMPH % 29.5 % (20.0-40.0); MEAN CELL VOLUME 85.2 fL (81.0-99.0); MEAN CORPUSCULAR HEMOGLOBIN 29.9 pg (27.0-31.0); MEAN CORPUSCULAR HGB CONC 35.1 g/dL (33.0-37.0); MEAN PLATELET VOLUME 7.6 fL (7.2-11.7); MONO # 0.4 K/uL (0.0-0.8); NEUT % 63.3 % (50.0-75.0); NRBC % 0.1 % (0.0-2.0); RBC 3.42 Mil/uL (3.80-5.20); RED CELL DISTRIBUTION WIDTH 14.5 % (11.5-14.5); WHITE BLOOD COUNT 7.8 K/uL (4.8-10.8)
[2017-11-27 07:45] LABS: ALB/GLOB RATIO 0.8 (1.0-2.1); ALBUMIN 3.2 g/dL (3.5-5.0); ALT/SGPT 17 U/L (9-52); AST/SGOT 23 U/L (14-36); BLOOD UREA NITROGEN 13 mg/dL (7-17); CALCIUM 8.7 mg/dl (8.6-10.4); GFR AFRICAN-AMERICAN > 60; GFR NON-AFRICAN AMERICAN > 60
[2017-11-27] MEDS: (Novolog) Insulin Aspart, Recombinant 100 u/ml 10 ml vial SC SCH ×4 (07:48→22:05)
[2017-11-27] MEDS: Insulin Detemir 100 units/ml Vial (Levemir) SC SCH ×2 (09:22→22:04)
[2017-11-27] MEDS: Vancomycin 1 gm/NS 200 ml 1 GM/200 ML BAG IVPB SCH ×2 (09:24→22:03)
--- NOTE | 2017-11-27 09:37 | CP.PCM.PN ---
Subjective - Date & Time of Evaluation Date of Evaluation: 11/27/17 Time of Evaluation: 09:33 - Subjective Subjective: Podiatry note for Dr. Ferreira 47 year old female patient with PMHx of HTN was seen at bedside this morning concerning right foot cellulitis and open wound. Patient was resting comfortably in bed AAO x3. NAD. Dressing to right foot was already taken off at the time of visit. Patient was advised to keep the dressing clean dry and intact. She was educated of possible outcome of not keeping the dressings intact including infections which could lead to serious problems. Patient denies of any N/V/F/C or SOB today Objective - Vital Signs/Intake and Output Vital Signs (last 24 hours): Temp Pulse Resp BP Pulse Ox 98.6 F 85 20 127/73 97 11/27/17 08:39 11/27/17 08:39 11/27/17 08:39 11/27/17 09:22 11/27/17 08:39 - Medications Medications: Current Medications Acetaminophen (Tylenol 325mg Tab) 650 mg PO Q8 PRN PRN Reason: Pain, Mild (1-3) Last Admin: 11/25/17 12:45 Dose: 650 mg Albuterol (Ventolin Hfa 90 Mcg/Actuation (8 G)) 2 puff IH RQ6 PRN PRN Reason: Wheezing Amlodipine Besylate (Norvasc) 10 mg PO DAILY [facility] Last Admin: 11/27/17 09:23 Dose: 10 mg Famotidine (Pepcid) 20 mg PO DAILY [facility] Last Admin: 11/27/17 09:23 Dose: 20 mg Furosemide (Lasix) 40 mg PO DAILY [facility] Last Admin: 11/27/17 09:22 Dose: 40 mg Heparin Sodium (Porcine) (Heparin) 5,000 units SC Q12 [facility] Last Admin: 11/27/17 09:21 Dose: 5,000 units Vancomycin/Sodium Chloride (Vancomycin 1 Gm/Ns 200 Ml) 1 gm in 200 mls @ 133 mls/hr IVPB Q12H [facility] Stop: 11/29/17 21:01 Last Admin: 11/27/17 09:24 Dose: 133 mls/hr Insulin Aspart (Novolog) 0 unit SC ACHS [facility] PRN Reason: Protocol Last Admin: 11/27/17 07:48 Dose: 4 unit Insulin Detemir (Levemir) 10 unit SC Q12H [facility] Last Admin: 11/27/17 09:22 Dose: 10 unit Levetiracetam (Keppra) 500 mg PO BID [facility] Last Admin: 11/27/17 09:22 Dose: 500 mg Losartan Potassium (Cozaar) 100 mg PO DAILY [facility] Last Admin: 11/27/17 09:20 Dose: 100 mg Metformin HCl (Glucophage) 1,000 mg PO BID [facility] Last Admin: 11/26/17 17:39 Dose: 1,000 mg Rosuvastatin Calcium (Crestor) 10 mg PO DAILY [facility] Last Admin: 11/26/17 11:04 Dose: 10 mg - Labs Labs: 11/27/17 07:10 11/27/17 07:10 - Constitutional Appears: Well, Non-toxic, No Acute Distress - Head Exam Head Exam: ATRAUMATIC - Extremities Exam Additional comments: Right lower extremity exam DERM: Open wound noted to medial aspect of right 1st MTPJ measuring 3m x 3cm x 0.3cm with mostly fibrotic base. Mild serous drainage is noted from th wound. No purulent discharge noted. Wound margins appears slightly necrotic with dark discolorations, not dried blood. No mal-odor present. ORTHO: Mild pain on palpation in passive ROM to joints distal to ankle bilaterally VASC: Non-palpable DP and PT noteded bilaterally. TRUCKSMITH less than 3 seconds to all digits NEURO: Gross sensation intact - Neurological Exam Neurological Exam: Alert, Awake, Oriented x3 - Psychiatric Exam Psychiatric exam: Normal Affect, Normal Mood Assessment and Plan - Assessment and Plan (Free Text) Assessment: 47 yo female patient presenting right foot cellulitis and chronic superficial ulceration to right 1st MTPJ Plan: Patient was seen, evaluated by bedside Rounded with attending Dr. Ferreira this AM Labs and Vitals reviewed Right foot dressed with Xeroform, DSD Xray - no mention of OM MRI result - Possible OM to 2nd digit and 1st Met head Arterial doppler - No significant occlusion Venous doppler - Negative DVT Vascular consulted WCX- Gran (+) coddi, Corynebacterium Prelim Continue IV Abx Podiatry will continue to follow in house
--- NOTE | 2017-11-27 10:27 | CP.PCM.CON ---
History of Present Illness - History of Present Illness History of Present Illness: [facility] Surgery: Dr Anderson Patient is a 47-year-old female with a PMHx of HTN, DM and HLD who was consulted for lymphedema of her R leg. Patient was referred here by Dr. Ferreira. Patient reports that the lymphedema of her R lower leg started 4 years ago with no known inciting event. She also has a bunyon for the past 4 months on her right foot. She reports pain and loss of sensation of the lower half of her R lower leg. Pain starts at her toes and radiates up her leg. Rates pain 7/10 currently, 6/10 at best and 10/10 at worst. Not moving makes the pain worse and she has not tried anything to make the pain better. PMH: HTN, DM, hypercholesterolemia, GERD PSH: amputation of the second digit on the left foot in 2013, CS in 2013 Social: denies tobacco use, and illicit drug use. Drinks alcohol occasionally on weekends. ROS: +R leg pain, R foot pain, decreased sensation in R leg, acid reflux, heartburn, numbness and tingling in R hand Denies fever, chills, headache, vision changes, chest pain, shortness of breath , palpitations, N/V/C/D, abd pain, muscle pain, joint pain, changes in urination Review of Systems - Review of Systems All systems: reviewed and no additional remarkable complaints except Review of Systems: As per HPI Past Patient History - Past Medical History & Family History Past Medical History?: Yes Past Family History: Reviewed and not pertinent - Past Social History Smoking Status: Never Smoked Alcohol: Occasional Drugs: Denies - CARDIAC Hx Cardiac Disorders: Yes Hx Hypercholesterolemia: Yes Hx Hypertension: Yes - PULMONARY Hx Respiratory Disorders: No - NEUROLOGICAL Hx Neurological Disorder: No - HEENT Hx HEENT Problems: No - RENAL Hx Chronic Kidney Disease: No - ENDOCRINE/METABOLIC Hx Endocrine Disorders: Yes Hx Diabetes Mellitus Type 2: Yes - HEMATOLOGICAL/ONCOLOGICAL Hx Blood Disorders: No - INTEGUMENTARY Hx Dermatological Problems: No - MUSCULOSKELETAL/RHEUMATOLOGICAL Hx Falls: No - GASTROINTESTINAL Hx Gastrointestinal Disorders: No - GENITOURINARY/GYNECOLOGICAL Hx Genitourinary Disorders: No - PSYCHIATRIC Hx Substance Use: No - SURGICAL HISTORY Hx Surgeries: Yes Hx Orthopedic Surgery: Yes (Right toe, Left foot) - ANESTHESIA Hx Anesthesia: Yes Hx Anesthesia Reactions: No Hx Malignant Hyperthermia: No Has any member of the family had a problem w/ anesthesia?: No Meds Allergies/Adverse Reactions: Allergies Allergy/AdvReac Type Severity Reaction Status Date / Time No Known Allergies Allergy Verified 11/24/17 10:39 - Medications Medications: Current Medications Acetaminophen (Tylenol 325mg Tab) 650 mg PO Q8 PRN PRN Reason: Pain, Mild (1-3) Last Admin: 11/25/17 12:45 Dose: 650 mg Albuterol (Ventolin Hfa 90 Mcg/Actuation (8 G)) 2 puff IH RQ6 PRN PRN Reason: Wheezing Amlodipine Besylate (Norvasc) 10 mg PO DAILY [facility] Last Admin: 11/27/17 09:23 Dose: 10 mg Famotidine (Pepcid) 20 mg PO DAILY [facility] Last Admin: 11/27/17 09:23 Dose: 20 mg Furosemide (Lasix) 40 mg PO DAILY [facility] Last Admin: 11/27/17 09:22 Dose: 40 mg Heparin Sodium (Porcine) (Heparin) 5,000 units SC Q12 [facility] Last Admin: 11/27/17 09:21 Dose: 5,000 units Vancomycin/Sodium Chloride (Vancomycin 1 Gm/Ns 200 Ml) 1 gm in 200 mls @ 133 mls/hr IVPB Q12H [facility] Stop: 11/29/17 21:01 Last Admin: 11/27/17 09:24 Dose: 133 mls/hr Insulin Aspart (Novolog) 0 unit SC ACHS [facility] PRN Reason: Protocol Last Admin: 11/27/17 07:48 Dose: 4 unit Insulin Detemir (Levemir) 10 unit SC Q12H [facility] Last Admin: 11/27/17 09:22 Dose: 10 unit Levetiracetam (Keppra) 500 mg PO BID [facility] Last Admin: 11/27/17 09:22 Dose: 500 mg Losartan Potassium (Cozaar) 100 mg PO DAILY [facility] Last Admin: 11/27/17 09:20 Dose: 100 mg Metformin HCl (Glucophage) 1,000 mg PO BID [facility] Last Admin: 11/26/17 17:39 Dose: 1,000 mg Rosuvastatin Calcium (Crestor) 10 mg PO DAILY [facility] Last Admin: 11/26/17 11:04 Dose: 10 mg Physical Exam - Constitutional Appears: Well, Non-toxic, No Acute Distress - Head Exam Head Exam: ATRAUMATIC, NORMAL INSPECTION, NORMOCEPHALIC - Eye Exam Eye Exam: Normal appearance, PERRL Pupil Exam: NORMAL ACCOMODATION - ENT Exam ENT Exam: Mucous Membranes Moist - Neck Exam Neck exam: Positive for: Normal Inspection - Respiratory Exam Respiratory Exam: Clear to Auscultation Bilateral, NORMAL BREATHING PATTERN - Cardiovascular Exam Cardiovascular Exam: REGULAR RHYTHM, RRR, +S1, +S2 - GI/Abdominal Exam GI & Abdominal Exam: Normal Bowel Sounds, Soft. absent: Organomegaly, Tenderness - Extremities Exam Extremities exam: Positive for: calf tenderness, pedal edema, tenderness Additional comments: R leg: warm, tender, non-pitting edema, bunyon on right foot L foot: 2nd digit toe amputation - Neurological Exam Neurological exam: Alert, Oriented x3 - Skin Skin Exam: Dry, Normal Color, Warm Results - Vital Signs Recent Vital Signs: Last Vital Signs Temp 98.6 F 11/27/17 08:39 Pulse 85 11/27/17 08:39 Resp 20 11/27/17 08:39 BP 127/73 11/27/17 09:22 Pulse Ox 97 11/27/17 08:39 - Labs Result Diagrams: 11/27/17 07:10 11/27/17 07:10 Labs: Laboratory Results - last 24 hr 11/26/17 11/26/17 11/26/17 11:23 15:56 21:26 WBC RBC Hgb Hct MCV MCH MCHC RDW Plt Count MPV Neut % (Auto) Lymph % (Auto) [place] % (Auto) Eos % (Auto) Baso % (Auto) Neut # (Auto) Lymph # (Auto) [place] # (Auto) Eos # (Auto) Baso # (Auto) Sodium Potassium Chloride Carbon Dioxide Anion Gap BUN Creatinine Est GFR ( Amer) Est GFR (Non-Af Amer) POC Glucose (mg/dL) 386 H 363 H 319 H Random Glucose Calcium Phosphorus Magnesium Total Bilirubin AST ALT Alkaline Phosphatase Total Protein Albumin Globulin Albumin/Globulin Ratio 11/27/17 11/27/17 11/27/17 07:10 07:10 07:21 WBC 7.8 RBC 3.42 L Hgb 10.2 L Hct 29.2 L MCV 85.2 MCH 29.9 MCHC 35.1 RDW 14.5 Plt Count 318 MPV 7.6 Neut % (Auto) 63.3 Lymph % (Auto) 29.5 [place] % (Auto) 5.0 Eos % (Auto) 1.3 Baso % (Auto) 0.9 Neut # (Auto) 5.0 Lymph # (Auto) 2.3 [place] # (Auto) 0.4 Eos # (Auto) 0.1 Baso # (Auto) 0.1 Sodium 135 Potassium 3.3 L Chloride 99 Carbon Dioxide 24 Anion Gap 16 BUN 13 Creatinine 0.8 Est GFR ( Amer) > 60 Est GFR (Non-Af Amer) > 60 POC Glucose (mg/dL) 237 H Random Glucose 256 H Calcium 8.7 Phosphorus 4.0 Magnesium 1.6 Total Bilirubin 0.2 AST 23 ALT 17 Alkaline Phosphatase 84 Total Protein 7.0 Albumin 3.2 L Globulin 3.8 Albumin/Globulin Ratio 0.8 L Assessment & Plan - Assessment and Plan (Free Text) Assessment: 47F consulted for R leg lymphedema and non-healing wound on 1st toe Plan: Pt needs better arterial studies will order CTA abd/pel w/ ileofem run off as well as ABIs further recs pending results and attending eval rec SUSAN wraps with gradual compression on LE as well as keeping leg elevated will d/w Dr Justin Cutler, PGY3 - Date & Time Date: 11/27/17 Time: 10:43
[2017-11-27] MEDS ORDERED: Iodixanol 320 mg/ml 150 ml Bottle IV ONE (12:21)
--- NOTE | 2017-11-27 12:44 | CP.PCM.PN ---
Subjective - Date & Time of Evaluation Date of Evaluation: 11/27/17 Time of Evaluation: 12:43 - Subjective Subjective: PGY2 Medicine Note for Dr. Wagner, all management as per Dr. Wagner Patient seen and examined at bedside this AM; denies any acute complaints; denies fevers/chills, TAYLOR, CP, SOB, abdominal pain, dysuria/freq/urg. Objective - Vital Signs/Intake and Output Vital Signs (last 24 hours): Temp Pulse Resp BP Pulse Ox 98.6 F 85 20 127/73 97 11/27/17 08:39 11/27/17 08:39 11/27/17 08:39 11/27/17 09:22 11/27/17 08:39 - Medications Medications: Current Medications Acetaminophen (Tylenol 325mg Tab) 650 mg PO Q8 PRN PRN Reason: Pain, Mild (1-3) Last Admin: 11/25/17 12:45 Dose: 650 mg Albuterol (Ventolin Hfa 90 Mcg/Actuation (8 G)) 2 puff IH RQ6 PRN PRN Reason: Wheezing Amlodipine Besylate (Norvasc) 10 mg PO DAILY [facility] Last Admin: 11/27/17 09:23 Dose: 10 mg Famotidine (Pepcid) 20 mg PO DAILY [facility] Last Admin: 11/27/17 09:23 Dose: 20 mg Furosemide (Lasix) 40 mg PO DAILY [facility] Last Admin: 11/27/17 09:22 Dose: 40 mg Heparin Sodium (Porcine) (Heparin) 5,000 units SC Q12 [facility] Last Admin: 11/27/17 09:21 Dose: 5,000 units Vancomycin/Sodium Chloride (Vancomycin 1 Gm/Ns 200 Ml) 1 gm in 200 mls @ 133 mls/hr IVPB Q12H [facility] Stop: 11/29/17 21:01 Last Admin: 11/27/17 09:24 Dose: 133 mls/hr Insulin Aspart (Novolog) 0 unit SC ACHS [facility] PRN Reason: Protocol Last Admin: 11/27/17 11:54 Dose: 8 unit Insulin Detemir (Levemir) 10 unit SC Q12H [facility] Last Admin: 11/27/17 09:22 Dose: 10 unit Levetiracetam (Keppra) 500 mg PO BID [facility] Last Admin: 03/08/18 09:22 Dose: 500 mg Losartan Potassium (Cozaar) 100 mg PO DAILY [facility] Last Admin: 11/27/17 09:20 Dose: 100 mg Metformin HCl (Glucophage) 1,000 mg PO BID [facility] Last Admin: 11/27/17 09:20 Dose: 1,000 mg Rosuvastatin Calcium (Crestor) 10 mg PO DAILY [facility] Last Admin: 11/27/17 11:47 Dose: 10 mg - Labs Labs: 11/27/17 07:10 11/27/17 07:10 - Head Exam Additional comments: Appears: Non-toxic, No Acute Distress - Head Exam Head Exam: ATRAUMATIC, NORMAL INSPECTION - Eye Exam Eye Exam: Normal appearance, Periorbital tenderness Pupil Exam: NORMAL ACCOMODATION - ENT Exam ENT Exam: Mucous Membranes Moist - Neck Exam Neck Exam: Full ROM. absent: Tenderness - Respiratory Exam Respiratory Exam: Clear to Ausculation Bilateral, NORMAL BREATHING PATTERN. absent: Wheezes - Cardiovascular Exam Cardiovascular Exam: REGULAR RHYTHM, +S1, +S2 - GI/Abdominal Exam GI & Abdominal Exam: Soft, Normal Bowel Sounds. absent: Tenderness - Extremities Exam Extremities Exam: Pedal Edema (R), Tenderness (R) Additional comments: -medial aspect of right 1st MTPJ measuring 3m x 3cm x 0.3cm with mostly fibrotic base -R foot / calf edema, non-pitting 2/2 lymphedema (chronic), tender to palpation - Back Exam Back Exam: NORMAL INSPECTION. absent: CVA tenderness (L), CVA tenderness (R) - Neurological Exam Neurological Exam: Alert, Awake, Oriented x3 - Psychiatric Exam Psychiatric exam: Normal Affect, Normal Mood - Skin Skin Exam: Dry, Intact, Normal Color Assessment and Plan - Assessment and Plan (Free Text) Assessment: Osteomyelitis of R Foot 11/27: awaiting PICC line placement for 6-8 weeks of vanc and zosyn which she can receive as outpatient once done with surgical interventions if warranted -f/u CTA of lower extremities as per surgery 11/26: Afebrile. WBC 7.6. Patient did not receive last dose of Vanco 2/2 difficult needle stick (lost line). Awaiting PICC placement. MRI R Forefoot 11/25/17 - 2nd distal phalynx osteomyelitis; R foot cellulitis; 1st proximal phalynx soft tissue ulceration. see full report. Patient did not receive last dose of Vanco 2/2 difficult needle stick. She is awaiting placement of PICC line. Wound culture positive for - Corynebacterium (prelim) ID Consult, Dr. Deleon, f/u recs. 11/25: afebrile; Podiatry Consult, Dr. Ferreira, f/u recs - Lymphedema of R Foot (chronic) Tylenol 325mg Tab) 650 mg PO Q8 PRN Vancomycin 1 Gm/Ns 200 Ml) 1 gm in 200 mls @ 133 mls/hr IVPB Q12H [facility] Right foot dressed wiht Xeroform, DSD Xray - no mention of OM f/u Arterial doppler f/u Venous doppler Hypertension 11/25: 146/75 - WNL, monitor. Norvasc) 10 mg PO DAILY [facility] Lasix) 40 mg PO DAILY [facility] Cozaar) 100 mg PO DAILY [facility] HLD Crestor) 10 mg PO DAILY [facility] Diabetes 11/26: Her glucose ashlyn to 358; Resume Levemir 10u Q12H. Novolog ISS inc to high dose Glucophage) 1,000 mg PO BID [facility] Novolog ISS - medium dose Anemia Hgb 10.1 - stable, continue to monitor Electrolyte Imbalance 11/26: Hypomagnesemia, Mg 1.4 - monitor and replete 11/25: Hypokalemia, K 3.2 - Resolved 11/25: Hypomagnesemia, Mg 1.3 - monitor and replete Prophylaxis Ventolin Hfa 90 Mcg/Actuation (8 G)) 2 puff IH RQ6 PRN Heparin) 5,000 units SC Q12 [facility] Pepcid 20mg PO qD Case discussed with attending. All medical management as per Dr. Sean Wagner.
--- NOTE | 2017-11-27 13:41 | CT ---
PROCEDURE: CT Angiography Abdomen, Pelvis and Lower Extremity with Contrast HISTORY: non-healing right foot wound COMPARISON: None. TECHNIQUE: Technique: CT angiography of the abdomen, pelvis and bilateral lower extremities performed in the arterial phase of enhancement. Coronal and sagittal reformats, and well as rotating MIP images of the vessels generated at the workstation. Intravenous contrast dose: 100 cubic centimeters Visipaque 320 Radiation dose: Total exam DLP = 3278.82 MGy-cm. This CT exam was performed using one or more of the following dose reduction techniques: Automated exposure control, adjustment of the mA and/or kV according to patient size, and/or use of iterative reconstruction technique. FINDINGS: CT ANGIOGRAPHY: ABDOMINAL AORTA:: The abdominal was unremarkable MAJOR AORTIC BRANCHES: Celiac [place]: Unremarkable. Superior mesenteric artery: Unremarkable. Inferior mesenteric artery: Unremarkable. Renal arteries: Unremarkable. PELVIC ARTERIES: Right Common Iliac: Unremarkable. Right External Iliac: Unremarkable. Right Internal Iliac: Unremarkable. Left Common Iliac: Unremarkable. Left External Iliac: Unremarkable. Left Internal Iliac: Unremarkable. RIGHT LOWER EXTREMITY ARTERIES: Right Common Femoral: Unremarkable. Right Superficial Femoral: Mild calcific plaque throughout the SFA with no stenosis. Right Profunda Femoris: Unremarkable. Right Popliteal:Unremarkable. Right Anterior Tibial: Unremarkable. Right Tibioperoneal Trunk: Unremarkable. Right Posterior Tibial: Calcification distal posterior tibial artery which limits evaluation. To posterior tibial artery is patent otherwise. The lateral plantar artery is patent. Right Peroneal: Unremarkable. Right dorsalis pedis : Unremarkable. LEFT LOWER EXTREMITY ARTERIES: Left Common Femoral: Unremarkable. Left Superficial Femoral: mild calcific plaque throughout the SFA with no stenosis. Left Profunda Femoris: Unremarkable. Left Popliteal: Unremarkable. Left Anterior Tibial: Unremarkable. Left Tibioperoneal Trunk: Unremarkable. Left Posterior Tibial: Moderate calcific plaque in the distal posterior tibial artery which limits evaluation. The PT is otherwise patent. The lateral plantar artery is unremarkable. Left Peroneal:Unremarkable. Left Dorsalis pedis: Unremarkable. NON-ANGIOGRAPHIC ASPECT OF THE EXAM: LOWER THORAX: Unremarkable. LIVER: Unremarkable. No gross lesion or ductal dilatation. GALLBLADDER AND BILE DUCTS: Unremarkable. PANCREAS: Unremarkable. No gross lesion or ductal dilatation. SPLEEN: Unremarkable. ADRENALS: Unremarkable. No mass. KIDNEYS AND URETERS: Unremarkable. No hydronephrosis. No solid mass. STOMACH AND BOWEL: Unremarkable. No obstruction. No gross mural thickening. APPENDIX: Normal appendix. PERITONEUM: Unremarkable. No free fluid. No free air. LYMPH NODES: Unremarkable. No enlarged lymph nodes. BLADDER: Unremarkable. REPRODUCTIVE: Unremarkable. BONES: No acute fracture. OTHER FINDINGS: Edema right lower extremity. IMPRESSION: Unremarkable CT angiogram of the abdomen, right and left lower extremities. There is no evidence of stenosis. There is edema right lower extremity.
[2017-11-27] MEDS ORDERED: Potassium Chloride 20 mEq ER Tab PO ONE (14:45)
--- NOTE | 2017-11-27 18:35 | CP.PCM.CON ---
History of Present Illness - History of Present Illness History of Present Illness: ID consulted for antibiotic management right hallux ulcer / possible OM right foot based on MRO roight 1st and second digits as well as cellulitis rihght leg / foot 47-year-old female admitted with ulcer right foot and severe lymphedema right leg . The lymphedema of her R lower leg started 4 years ago with no known inciting event. PMH: HTN, DM, hypercholesterolemia, GERD PSH: amputation of the second digit on the left foot in 2013, CS in 2013 Social: denies tobacco use, and illicit drug use. Drinks alcohol occasionally on weekends. ROS: +R leg pain, R foot pain, decreased sensation in R leg, acid reflux, heartburn, numbness and tingling in R hand Denies fever, chills, headache, vision changes, chest pain, shortness of breath , palpitations, N/V/C/D, abd pain, muscle pain, joint pain, changes in urination Review of Systems - Constitutional Constitutional: As Per HPI - EENT Eyes: absent: As Per HPI, Blind Spots, Blurred Vision, Change in Vision, Decreased Night Vision, Diplopia, Discharge, Dry Eye, Exophthalmos, Floaters, Irritation, Itchy Eyes, Loss of Peripheral Vision, Pain, Photophobia, Requires Corrective Lenses, Sees Flashes, Spots in Vision, Tunnel Vision, Other Visual Disturbances, Loss of Vision, Other Ears: absent: As Per HPI, Decreased Hearing, Ear Discharge, Ear Pain, Tinnitus, Abnormal Hearing, Disequilibrium, Dizziness, Other Nose/Mouth/Throat: absent: As Per HPI, Epistaxis, Nasal Congestion, Nasal Discharge, Nasal Obstruction, Nasal Trauma, Nose Pain, Post Nasal Drip, Sinus Pain, Sinus Pressure, Bleeding Gums, Change in Voice, Dental Pain, Dry Mouth, Dysphagia, Halitosis, Hoarsness, Lip Swelling, Mouth Lesions, Mouth Pain, Odynophagia, Sore Throat, Throat Swelling, Tongue Swelling, Facial Pain, Neck Pain, Neck Mass, Other - Breasts Breasts: absent: As Per HPI, Change in Shape, Mass, Pain, Nipple Discharge, Nipple Inversion, Skin Changes, Swelling, Other - Cardiovascular Cardiovascular: absent: As Per HPI, Acrocyanosis, Chest Pain, Chest Pain at Rest , Chest Pain with Activity, Claudication, Diaphoresis, Dyspnea, Dyspnea on Exertion, Edema, Irregular Heart Rhythm, Pain Radiating to Arm/Neck/Jaw, Leg Edema, Leg Ulcers, Lightheadedness, Orthopnea, Palpitations, Paroxysmal Nocturnal Dyspnea, Pedal Edema, Radiating Pain, Rapid Heart Rate, Slow Heart Rate, Syncope, Other - Respiratory Respiratory: absent: As Per HPI, Cough, Dyspnea, Hemoptysis, Dyspnea on Exertion , Wheezing, Snoring, Stridor, Pain on Inspiration, Chest Congestion, Excessive Mucous Production, Change in Mucous Color, Pain with Coughing, Other - Gastrointestinal Gastrointestinal: absent: As Per HPI, Abdominal Pain, Belching, Bloating, Change in Bowel Habits, Change in Stool Character, Coffee Ground Emesis, Constipation, Cramping, Diarrhea, Dyspepsia, Dysphagia, Early Satiety, Excessive Flatus, Fecal Incontinence, Heartburn, Hematemesis, Hematochezia, Loose Stools, Melena, Nausea, Odynophagia, Temesmus, Vomiting, Other - Genitourinary Genitourinary: absent: As Per HPI, Change in Urinary Stream, Difficulty Urinating, Dysuria, Flank Pain, Hematuria, Pyuria, Nocturia, Urinary Incontinence, Urinary Frequency, Urinary Hesitance, Urinary Urgency, Voiding Freq/Small Amts, Freq UTI, Hx Renal/Bladder Calculi, Hx /Renal Surgery, Bladder Distension, Other - Reproductive: Female Reproductive:Female: absent: As Per HPI, Amenorrhea, Amenorrhea/ Control, Currently Menstual, Cycle <21 Days, Cycle >35 Days, Cycle Variable, Menses 1-7 Days, Menses >/= 8 Days, Menses Variable, Cycle > 4 Weeks Between, No Menses for 6 Months, Heavy Menses, Light Menses, Normal Menses, Spotting Between Cycles , S/P Hysterectomy, Menopausal, Post Menopausal, Premenarche, Abnormal Vaginal Bleeding, Dysmenorrhea, Dyspareunia, Genital Lesions, Genital Pruritis, Pelvic Pain, Prolapse Symptoms, Sexual Dysfunction, Vaginal Discharge, Vaginal Dryness , Vaginal Odor, Vaginal Pruritis, Other - Menstruation Menstruation: absent: As Per HPI, Amenorrhea, Amenorrhea/ Control, Currently Menstual, Cycle <21 Days, Cycle >35 Days, Cycle Variable, Menses 1-7 Days, Menses >/= 8 Days, Menses Variable, Cycle > 4 Weeks Between, No Menses for 6 Months, Heavy Menses, Light Menses, Normal Menses, Spotting Between Cycles , S/P Hysterectomy, Menopausal, Post Menopausal, Premenarche, Abnormal Vaginal Bleeding, Dysmenorrhea, Other - Musculoskeletal Musculoskeletal: As Per HPI - Integumentary Integumentary: As Per HPI, Skin Pain, Wounds - Neurological Neurological: absent: As Per HPI, Abnormal Gait, Abnormal Hearing, Abnormal Movements, Abnormal Speech, Behavioral Changes, Burning Sensations, Confusion, Convulsions, Disequilibrium, Dizziness, Numbness, Focal Weakness, Frequent Falls , Headaches, Lack of Coordination, Loss of Vision, Memory Loss, Paresthesias, Radicular Pain, Restless Legs, Sensory Deficit, Syncope, Tingling, Tremor, Vertigo, Weakness, Other Visual Disturbances, Other - Psychiatric Psychiatric: absent: As Per HPI, Abnormal Sleep Pattern, Anhedonia, Anxiety, Auditory Hallucinations, Behavioral Changes, Change in Appetite, Change in Libido, Confusion, Depression, Difficulty Concentrating, Hallucinations, Homicidal Ideation, Hopelessness, Irritability, Memory Loss, Mood Swings, Panic Attacks, Paranoia, Suicidal Ideation, Visual Hallucinations, Tactile Hallucinations, Other - Endocrine Endocrine: absent: As Per HPI, Change in Body Appearance, Change in Libido, Cold Intolorance, Deepening of Voice, Excessive Sweating, Fatigue, Flushing, Heat Intolorance, Increase in Ring/Shoe/Hat Size, Palpitations, Polydipsia, Polyphagia, Polyuria, Other - Hematologic/Lymphatic Hematologic: absent: As Per HPI, Easy Bleeding, Easy Bruising, Lymphadenopathy, Other Past Patient History - Past Medical History & Family History Past Medical History?: Yes Past Family History: Reviewed and not pertinent - Past Social History Smoking Status: Never Smoked Alcohol: Occasional Drugs: Denies - CARDIAC Hx Cardiac Disorders: Yes Hx Hypercholesterolemia: Yes Hx Hypertension: Yes - PULMONARY Hx Respiratory Disorders: No - NEUROLOGICAL Hx Neurological Disorder: No - HEENT Hx HEENT Problems: No - RENAL Hx Chronic Kidney Disease: No - ENDOCRINE/METABOLIC Hx Diabetes Mellitus Type 2: Yes - HEMATOLOGICAL/ONCOLOGICAL Hx Blood Disorders: No - INTEGUMENTARY Hx Dermatological Problems: No - MUSCULOSKELETAL/RHEUMATOLOGICAL Hx Arthritis: Yes (BACK) - GASTROINTESTINAL Hx Gastrointestinal Disorders: No - GENITOURINARY/GYNECOLOGICAL Hx Genitourinary Disorders: No - PSYCHIATRIC Hx Substance Use: No - SURGICAL HISTORY Hx Surgeries: Yes Hx Orthopedic Surgery: Yes (Right toe, Left foot) - ANESTHESIA Hx Anesthesia: Yes Hx Anesthesia Reactions: No Hx Malignant Hyperthermia: No Has any member of the family had a problem w/ anesthesia?: No Meds Allergies/Adverse Reactions: Allergies Allergy/AdvReac Type Severity Reaction Status Date / Time No Known Allergies Allergy Verified 11/24/17 10:39 - Medications Medications: Current Medications Acetaminophen (Tylenol 325mg Tab) 650 mg PO Q8 PRN PRN Reason: Pain, Mild (1-3) Last Admin: 11/27/17 17:47 Dose: 650 mg Albuterol (Ventolin Hfa 90 Mcg/Actuation (8 G)) 2 puff IH RQ6 PRN PRN Reason: Wheezing Amlodipine Besylate (Norvasc) 10 mg PO DAILY [facility] Last Admin: 11/27/17 09:23 Dose: 10 mg Famotidine (Pepcid) 20 mg PO DAILY [facility] Last Admin: 11/27/17 09:23 Dose: 20 mg Furosemide (Lasix) 40 mg PO DAILY [facility] Last Admin: 11/27/17 09:22 Dose: 40 mg Heparin Sodium (Porcine) (Heparin) 5,000 units SC Q12 [facility] Last Admin: 11/27/17 09:21 Dose: 5,000 units Vancomycin/Sodium Chloride (Vancomycin 1 Gm/Ns 200 Ml) 1 gm in 200 mls @ 133 mls/hr IVPB Q12H [facility] Stop: 11/29/17 21:01 Last Admin: 11/27/17 09:24 Dose: 133 mls/hr Insulin Aspart (Novolog) 0 unit SC ACHS [facility] PRN Reason: Protocol Last Admin: 11/27/17 17:46 Dose: 8 unit Insulin Detemir (Levemir) 10 unit SC Q12H [facility] Last Admin: 11/27/17 09:22 Dose: 10 unit Levetiracetam (Keppra) 500 mg PO BID [facility] Last Admin: 11/27/17 09:22 Dose: 500 mg Losartan Potassium (Cozaar) 100 mg PO DAILY [facility] Last Admin: 11/27/17 09:20 Dose: 100 mg Metformin HCl (Glucophage) 1,000 mg PO BID [facility] Last Admin: 11/27/17 17:46 Dose: 1,000 mg Rosuvastatin Calcium (Crestor) 10 mg PO DAILY [facility] Last Admin: 11/27/17 11:47 Dose: 10 mg Physical Exam - Constitutional Appears: Chronically Ill - Head Exam Head Exam: ATRAUMATIC, NORMOCEPHALIC - Eye Exam Eye Exam: EOMI, PERRL. absent: Scleral icterus - ENT Exam ENT Exam: Mucous Membranes Dry, Normal External Ear Exam - Neck Exam Neck exam: Negative for: Lymphadenopathy - Respiratory Exam Respiratory Exam: Decreased Breath Sounds, Clear to Auscultation Bilateral - Cardiovascular Exam Cardiovascular Exam: REGULAR RHYTHM, +S1, +S2 - GI/Abdominal Exam GI & Abdominal Exam: Diminished Bowel Sounds, Soft. absent: Tenderness - Rectal Exam Rectal Exam: Deferred - Exam Exam: NORMAL INSPECTION - Extremities Exam Extremities exam: Positive for: pedal edema, tenderness. Negative for: calf tenderness, pedal pulses present Additional comments: Right lower extremity exam DERM: Open wound noted to medial aspect of right 1st MTPJ measuring 3m x 3cm x 0.3cm with mostly fibrotic base. Mild serous drainage is noted from th wound. No purulent discharge noted. Wound margins appears slightly necrotic with dark discolorations, not dried blood. No mal-odor present. ORTHO: Mild pain on palpation in passive ROM to joints distal to ankle bilaterally VASC: Non-palpable DP and PT noteded bilaterally. 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 digits NEURO: Gross sensation intact - Back Exam Back exam: absent: CVA tenderness (L), CVA tenderness (R), paraspinal tenderness - Neurological Exam Neurological exam: Alert, CN II-XII Intact, Oriented x3, Reflexes Normal - Psychiatric Exam Psychiatric exam: Depressed - Skin Skin Exam: Dry, Intact Results - Vital Signs Recent Vital Signs: Last Vital Signs Temp 97.7 F 11/27/17 15:31 Pulse 80 11/27/17 15:59 Resp 20 11/27/17 15:31 BP 125/73 11/27/17 15:59 Pulse Ox 95 11/27/17 15:59 - Labs Result Diagrams: 11/27/17 07:10 11/27/17 07:10 Labs: Laboratory Results - last 24 hr 11/26/17 11/27/17 11/27/17 21:26 07:10 07:10 WBC 7.8 RBC 3.42 L Hgb 10.2 L Hct 29.2 L MCV 85.2 MCH 29.9 MCHC 35.1 RDW 14.5 Plt Count 318 MPV 7.6 Neut % (Auto) 63.3 Lymph % (Auto) 29.5 [place] % (Auto) 5.0 Eos % (Auto) 1.3 Baso % (Auto) 0.9 Neut # (Auto) 5.0 Lymph # (Auto) 2.3 [place] # (Auto) 0.4 Eos # (Auto) 0.1 Baso # (Auto) 0.1 Sodium 135 Potassium 3.3 L Chloride 99 Carbon Dioxide 24 Anion Gap 16 BUN 13 Creatinine 0.8 Est GFR ( Amer) > 60 Est GFR (Non-Af Amer) > 60 POC Glucose (mg/dL) 319 H Random Glucose 256 H Calcium 8.7 Phosphorus 4.0 Magnesium 1.6 Total Bilirubin 0.2 AST 23 ALT 17 Alkaline Phosphatase 84 Total Protein 7.0 Albumin 3.2 L Globulin 3.8 Albumin/Globulin Ratio 0.8 L Urine HCG, Qual 11/27/17 11/27/17 11/27/17 07:21 11:08 11:45 WBC RBC Hgb Hct MCV MCH MCHC RDW Plt Count MPV Neut % (Auto) Lymph % (Auto) [place] % (Auto) Eos % (Auto) Baso % (Auto) Neut # (Auto) Lymph # (Auto) [place] # (Auto) Eos # (Auto) Baso # (Auto) Sodium Potassium Chloride Carbon Dioxide Anion Gap BUN Creatinine Est GFR ( Amer) Est GFR (Non-Af Amer) POC Glucose (mg/dL) 237 H 329 H Random Glucose Calcium Phosphorus Magnesium Total Bilirubin AST ALT Alkaline Phosphatase Total Protein Albumin Globulin Albumin/Globulin Ratio Urine HCG, Qual Negative 11/27/17 16:34 WBC RBC Hgb Hct MCV MCH MCHC RDW Plt Count MPV Neut % (Auto) Lymph % (Auto) [place] % (Auto) Eos % (Auto) Baso % (Auto) Neut # (Auto) Lymph # (Auto) [place] # (Auto) Eos # (Auto) Baso # (Auto) Sodium Potassium Chloride Carbon Dioxide Anion Gap BUN Creatinine Est GFR ( Amer) Est GFR (Non-Af Amer) POC Glucose (mg/dL) 303 H Random Glucose Calcium Phosphorus Magnesium Total Bilirubin AST ALT Alkaline Phosphatase Total Protein Albumin Globulin Albumin/Globulin Ratio Urine HCG, Qual Assessment & Plan - Assessment and Plan (Free Text) Assessment: 47 yo male with infected right foot - likely OM and cellulitis right leg with chronic lymphedema Need to cover MRSA and pseudomonas Need complete vascular eval before any surgery High risk for limb loss in view of co-morbidities Poor prognosis for limb salvage
[2017-11-27] MEDS: Piperacill/Tazo 3.375gm in Dex 3.375 GM/50 ML BAG IVPB SCH (20:30)
[2017-11-28] MEDS: Piperacill/Tazo 3.375gm in Dex 3.375 GM/50 ML BAG IVPB SCH ×3 (04:25→20:49)
[2017-11-28] MEDS: (Novolog) Insulin Aspart, Recombinant 100 u/ml 10 ml vial SC SCH ×4 (08:18→22:22)
[2017-11-28 08:24] LABS: ALB/GLOB RATIO 0.8 (1.0-2.1); ALBUMIN 3.2 g/dL (3.5-5.0); ALT/SGPT 20 U/L (9-52); AST/SGOT 28 U/L (14-36); BLOOD UREA NITROGEN 17 mg/dL (7-17); CALCIUM 8.2 mg/dl (8.6-10.4); GFR AFRICAN-AMERICAN > 60; GFR NON-AFRICAN AMERICAN > 60
[2017-11-28 08:32] LABS: BASO % 0.7 % (0.0-2.0); EOS # 0.1 K/uL (0.0-0.7); EOS % 1.4 % (0.0-4.0); HEMOGLOBIN 10.2 g/dL (11.0-16.0); LYMPH # 2.2 K/uL (1.0-4.3); LYMPH % 33.8 % (20.0-40.0); MEAN CELL VOLUME 86.8 fL (81.0-99.0); MEAN CORPUSCULAR HEMOGLOBIN 31.1 pg (27.0-31.0); MEAN CORPUSCULAR HGB CONC 35.8 g/dL (33.0-37.0); MEAN PLATELET VOLUME 8.6 fL (7.2-11.7); MONO # 0.4 K/uL (0.0-0.8); MONO % 5.6 % (0.0-10.0); NEUT # 3.8 K/uL (1.8-7.0); NEUT % 58.5 % (50.0-75.0); NRBC % 0.6 % (0.0-2.0); RBC 3.28 Mil/uL (3.80-5.20); RED CELL DISTRIBUTION WIDTH 14.6 % (11.5-14.5); WHITE BLOOD COUNT 6.5 K/uL (4.8-10.8)
[2017-11-28] MEDS: Insulin Detemir 100 units/ml Vial (Levemir) SC SCH ×2 (10:40→21:13)
--- NOTE | 2017-11-28 10:44 | RAD ---
HISTORY: verify left PICC COMPARISON: No prior. FINDINGS: LUNGS: No active pulmonary disease. PLEURA: No significant pleural effusion identified, no pneumothorax apparent. CARDIOVASCULAR: Normal heart size. Left PICC catheter terminating at the level of the cavoatrial junction. OSSEOUS STRUCTURES: No significant abnormalities. VISUALIZED UPPER ABDOMEN: Normal. OTHER FINDINGS: None. IMPRESSION: No infiltrate. Left PICC catheter terminates at the level of the cavoatrial junction.
--- NOTE | 2017-11-28 11:03 | CP.PCM.PN ---
Subjective - Date & Time of Evaluation Date of Evaluation: 11/28/17 Time of Evaluation: 11:03 - Subjective Subjective: PGY2 Medicine Note for Dr. Wagner, all management as per Dr. Wagner This patient was seen and examined at bedside; she has no complaints; denies fevers/chills, TAYLOR, CP, SOB, abdominal pain, N/V/D, dysuria/freq/urg or lower extremity pain. Objective - Vital Signs/Intake and Output Vital Signs (last 24 hours): Temp Pulse Resp BP Pulse Ox 98.3 F 80 20 146/84 97 11/28/17 09:47 11/28/17 09:47 11/28/17 09:47 11/28/17 10:40 11/28/17 09:47 Intake and Output: 11/28/17 11/28/17 06:59 18:59 Intake Total 350 Balance 350 - Medications Medications: Current Medications Acetaminophen (Tylenol 325mg Tab) 650 mg PO Q8 PRN PRN Reason: Pain, Mild (1-3) Last Admin: 11/27/17 17:47 Dose: 650 mg Albuterol (Ventolin Hfa 90 Mcg/Actuation (8 G)) 2 puff IH RQ6 PRN PRN Reason: Wheezing Amlodipine Besylate (Norvasc) 10 mg PO DAILY [facility] Last Admin: 11/28/17 10:40 Dose: 10 mg Famotidine (Pepcid) 20 mg PO DAILY [facility] Last Admin: 11/28/17 10:40 Dose: 20 mg Furosemide (Lasix) 40 mg PO DAILY [facility] Last Admin: 11/28/17 10:40 Dose: 40 mg Heparin Sodium (Porcine) (Heparin) 5,000 units SC Q12 [facility] Last Admin: 11/28/17 10:40 Dose: 5,000 units Piperacillin Sod/Tazobactam Sod (Zosyn 3.375 Gm Iv Premix) 3.375 gm in 50 mls @ 100 mls/hr IVPB Q8H [facility] PRN Reason: Protocol Last Admin: 11/28/17 04:25 Dose: 100 mls/hr Insulin Aspart (Novolog) 0 unit SC ACHS [facility] PRN Reason: Protocol Last Admin: 11/28/17 08:18 Dose: 6 unit Insulin Detemir (Levemir) 15 unit SC Q12 [facility] Last Admin: 11/28/17 10:40 Dose: 15 unit Levetiracetam (Keppra) 500 mg PO BID [facility] Last Admin: 11/28/17 10:40 Dose: 500 mg Losartan Potassium (Cozaar) 100 mg PO DAILY [facility] Last Admin: 11/28/17 10:40 Dose: 100 mg Metformin HCl (Glucophage) 1,000 mg PO BID [facility] Last Admin: 11/28/17 10:40 Dose: 1,000 mg Rosuvastatin Calcium (Crestor) 10 mg PO DAILY [facility] Last Admin: 11/28/17 10:40 Dose: 10 mg - Labs Labs: 11/28/17 07:22 11/28/17 07:22 - Head Exam Additional comments: Additional comments: Appears: Non-toxic, No Acute Distress - Head Exam Head Exam: ATRAUMATIC, NORMAL INSPECTION - Eye Exam Eye Exam: Normal appearance, Periorbital tenderness Pupil Exam: NORMAL ACCOMODATION - ENT Exam ENT Exam: Mucous Membranes Moist - Neck Exam Neck Exam: Full ROM. absent: Tenderness - Respiratory Exam Respiratory Exam: Clear to Ausculation Bilateral, NORMAL BREATHING PATTERN. absent: Wheezes - Cardiovascular Exam Cardiovascular Exam: REGULAR RHYTHM, +S1, +S2 - GI/Abdominal Exam GI & Abdominal Exam: Soft, Normal Bowel Sounds. absent: Tenderness - Extremities Exam Extremities Exam: Pedal Edema (R), Tenderness (R) Additional comments: -medial aspect of right 1st MTPJ measuring 3m x 3cm x 0.3cm with mostly fibrotic base -R foot / calf edema, non-pitting 2/2 lymphedema (chronic), tender to palpation - Back Exam Back Exam: NORMAL INSPECTION. absent: CVA tenderness (L), CVA tenderness (R) - Neurological Exam Neurological Exam: Alert, Awake, Oriented x3 - Psychiatric Exam Psychiatric exam: Normal Affect, Normal Mood - Skin Skin Exam: Dry, Intact, Normal Color Assessment and Plan - Assessment and Plan (Free Text) Assessment: Osteomyelitis of R Foot -11/28: patient with PICC; will be going for debridement w/ Dr. Ferreira; will need 6 -8 weeks of vanc after surgical interventions are done 11/27: awaiting PICC line placement for 6-8 weeks of vanc and zosyn which she can receive as outpatient once done with surgical interventions if warranted -f/u CTA of lower extremities as per surgery 11/26: Afebrile. WBC 7.6. Patient did not receive last dose of Vanco 2/2 difficult needle stick (lost line). Awaiting PICC placement. MRI R Forefoot 11/25/17 - 2nd distal phalynx osteomyelitis; R foot cellulitis; 1st proximal phalynx soft tissue ulceration. see full report. Patient did not receive last dose of Vanco 2/2 difficult needle stick. She is awaiting placement of PICC line. Wound culture positive for - Corynebacterium (prelim) ID Consult, Dr. Deleon, f/u recs. 11/25: afebrile; Podiatry Consult, Dr. Ferreira, f/u recs - Lymphedema of R Foot (chronic) Tylenol 325mg Tab) 650 mg PO Q8 PRN Vancomycin 1 Gm/Ns 200 Ml) 1 gm in 200 mls @ 133 mls/hr IVPB Q12H [facility] Right foot dressed wiht Xeroform, DSD Xray - no mention of OM f/u Arterial doppler f/u Venous doppler Hypertension 11/25: 146/75 - WNL, monitor. Norvasc) 10 mg PO DAILY [facility] Lasix) 40 mg PO DAILY [facility] Cozaar) 100 mg PO DAILY [facility] HLD Crestor) 10 mg PO DAILY [facility] Diabetes 11/26: Her glucose ashlyn to 358; Resume Levemir 10u Q12H. 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 All medical management as per Dr. Sean Wagner.
--- NOTE | 2017-11-28 14:39 | CP.PCM.PN ---
Subjective - Date & Time of Evaluation Date of Evaluation: 11/28/17 Time of Evaluation: 14:36 - Subjective Subjective: Podiatry note for Dr. Ferreira 47 year old female patient was seen at bedside this morning concerning right foot cellulitis and open wound. Patient was resting comfortably in bed AAO x3. NAD. Dressing to right foot remains c/d/i. Patient was advised to keep the dressing clean dry and intact. No other pedal complaints. Patient denies of any N/V/F/C or SOB today Objective - Vital Signs/Intake and Output Vital Signs (last 24 hours): Temp Pulse Resp BP Pulse Ox 98.3 F 80 20 146/84 97 11/28/17 09:47 11/28/17 09:47 11/28/17 09:47 11/28/17 10:40 11/28/17 09:47 Intake and Output: 11/28/17 11/28/17 06:59 18:59 Intake Total 350 Balance 350 - Medications Medications: Current Medications Acetaminophen (Tylenol 325mg Tab) 650 mg PO Q8 PRN PRN Reason: Pain, Mild (1-3) Last Admin: 11/27/17 17:47 Dose: 650 mg Albuterol (Ventolin Hfa 90 Mcg/Actuation (8 G)) 2 puff IH RQ6 PRN PRN Reason: Wheezing Amlodipine Besylate (Norvasc) 10 mg PO DAILY [facility] Last Admin: 11/28/17 10:40 Dose: 10 mg Famotidine (Pepcid) 20 mg PO DAILY [facility] Last Admin: 11/28/17 10:40 Dose: 20 mg Furosemide (Lasix) 40 mg PO DAILY [facility] Last Admin: 11/28/17 10:40 Dose: 40 mg Heparin Sodium (Porcine) (Heparin) 5,000 units SC Q12 [facility] Last Admin: 11/28/17 10:40 Dose: 5,000 units Piperacillin Sod/Tazobactam Sod (Zosyn 3.375 Gm Iv Premix) 3.375 gm in 50 mls @ 100 mls/hr IVPB Q8H [facility] PRN Reason: Protocol Last Admin: 11/28/17 12:34 Dose: 100 mls/hr Insulin Aspart (Novolog) 0 unit SC ACHS [facility] PRN Reason: Protocol Last Admin: 11/28/17 12:25 Dose: 8 unit Insulin Detemir (Levemir) 15 unit SC Q12 [facility] Last Admin: 11/28/17 10:40 Dose: 15 unit Levetiracetam (Keppra) 500 mg PO BID [facility] Last Admin: 11/28/17 10:40 Dose: 500 mg Losartan Potassium (Cozaar) 100 mg PO DAILY [facility] Last Admin: 11/28/17 10:40 Dose: 100 mg Metformin HCl (Glucophage) 1,000 mg PO BID [facility] Last Admin: 11/28/17 10:40 Dose: 1,000 mg Rosuvastatin Calcium (Crestor) 10 mg PO DAILY [facility] Last Admin: 11/28/17 10:40 Dose: 10 mg - Labs Labs: 11/28/17 07:22 11/28/17 07:22 - Constitutional Appears: Well, Non-toxic, No Acute Distress - Head Exam Head Exam: ATRAUMATIC - Extremities Exam Additional comments: Right lower extremity exam DERM: Open wound noted to medial aspect of right 1st MTPJ measuring 3m x 3cm x 0.3cm with mostly fibrotic base. Mild serous drainage is noted from the wound. No purulent discharge noted. Wound margins appears slightly necrotic with dark discolorations, not dried blood. No mal-odor present. ORTHO: Mild pain on palpation in passive ROM to joints distal to ankle bilaterally VASC: Non-palpable DP and PT noteded bilaterally. 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 Ferreira this AM Labs and Vitals reviewed Right foot dressed with Xeroform, DSD Xray - no mention of OM MRI result - Possible OM to 2nd digit and 1st Met head Arterial doppler - No significant occlusion Venous doppler - Negative DVT WCX Final: Beta hemolytic Group B Strep, Corynebacterium species Continue IV Abx Podiatry will continue to follow in house Vascular note appreciated; awaiting CTA, [facility] ID note appreciated.
--- NOTE | 2017-11-28 17:43 | CP.PCM.PN ---
Subjective - Date & Time of Evaluation Date of Evaluation: 11/28/17 Time of Evaluation: 09:00 - Subjective Subjective: Surgery: Dr. Anderson Pt seen and examined. No acute events overnight. States she feels ok and continues to have pain in the RLE. Denies F/C. Objective - Vital Signs/Intake and Output Vital Signs (last 24 hours): Temp Pulse Resp BP Pulse Ox 97.4 F L 79 20 150/85 96 11/28/17 15:00 11/28/17 15:00 11/28/17 15:00 11/28/17 15:00 11/28/17 15:00 Intake and Output: 11/28/17 11/28/17 06:59 18:59 Intake Total 350 450 Balance 350 450 - Medications Medications: Current Medications Acetaminophen (Tylenol 325mg Tab) 650 mg PO Q8 PRN PRN Reason: Pain, Mild (1-3) Last Admin: 11/27/17 17:47 Dose: 650 mg Albuterol (Ventolin Hfa 90 Mcg/Actuation (8 G)) 2 puff IH RQ6 PRN PRN Reason: Wheezing Amlodipine Besylate (Norvasc) 10 mg PO DAILY [facility] Last Admin: 11/28/17 10:40 Dose: 10 mg Famotidine (Pepcid) 20 mg PO DAILY [facility] Last Admin: 11/28/17 10:40 Dose: 20 mg Furosemide (Lasix) 40 mg PO DAILY [facility] Last Admin: 11/28/17 10:40 Dose: 40 mg Heparin Sodium (Porcine) (Heparin) 5,000 units SC Q12 [facility] Last Admin: 11/28/17 10:40 Dose: 5,000 units Piperacillin Sod/Tazobactam Sod (Zosyn 3.375 Gm Iv Premix) 3.375 gm in 50 mls @ 100 mls/hr IVPB Q8H [facility] PRN Reason: Protocol Last Admin: 11/28/17 12:34 Dose: 100 mls/hr Insulin Aspart (Novolog) 0 unit SC ACHS [facility] PRN Reason: Protocol Last Admin: 11/28/17 17:27 Dose: 6 unit Insulin Detemir (Levemir) 15 unit SC Q12 [facility] Last Admin: 11/28/17 10:40 Dose: 15 unit Levetiracetam (Keppra) 500 mg PO BID [facility] Last Admin: 11/28/17 17:26 Dose: 500 mg Losartan Potassium (Cozaar) 100 mg PO DAILY [facility] Last Admin: 11/28/17 10:40 Dose: 100 mg Metformin HCl (Glucophage) 1,000 mg PO BID [facility] Last Admin: 11/28/17 17:26 Dose: 1,000 mg Rosuvastatin Calcium (Crestor) 10 mg PO DAILY [facility] Last Admin: 11/28/17 10:40 Dose: 10 mg - Labs Labs: 11/28/17 07:22 11/28/17 07:22 - Constitutional Appears: Well, No Acute Distress - Eye Exam Eye Exam: Normal appearance - ENT Exam ENT Exam: Mucous Membranes Moist - Respiratory Exam Respiratory Exam: NORMAL BREATHING PATTERN - Cardiovascular Exam Cardiovascular Exam: RRR - GI/Abdominal Exam GI & Abdominal Exam: Soft. absent: Tenderness - Extremities Exam Additional comments: RLE with lymphedema - Neurological Exam Neurological Exam: Alert, Awake - Skin Skin Exam: Dry, Warm Assessment and Plan - Assessment and Plan (Free Text) Assessment: 47F with RLE lymphedema & non-healing foot ulcer Plan: - CTA of the LE showed no stenosis - cont elevation and yesy wrap of RLE - recs for foot ulcer per pods - no further vascular surgery intervention at this time - d/w Dr. Anderson
--- NOTE | 2017-11-28 18:36 | CP.PCM.PN ---
Subjective - Date & Time of Evaluation Date of Evaluation: 11/28/17 Time of Evaluation: 09:00 - Subjective Subjective: possible OM right foot severe cellulitis/ lymphedema foot and leg may need OR debridement Vascular following - CTA pending IV rx reordered / cultures reviewed Objective - Vital Signs/Intake and Output Vital Signs (last 24 hours): Temp Pulse Resp BP Pulse Ox 97.4 F L 79 20 150/85 96 11/28/17 15:00 11/28/17 15:00 11/28/17 15:00 11/28/17 15:00 11/28/17 15:00 Intake and Output: 11/28/17 11/28/17 06:59 18:59 Intake Total 350 450 Balance 350 450 - Medications Medications: Current Medications Acetaminophen (Tylenol 325mg Tab) 650 mg PO Q8 PRN PRN Reason: Pain, Mild (1-3) Last Admin: 11/27/17 17:47 Dose: 650 mg Albuterol (Ventolin Hfa 90 Mcg/Actuation (8 G)) 2 puff IH RQ6 PRN PRN Reason: Wheezing Amlodipine Besylate (Norvasc) 10 mg PO DAILY [facility] Last Admin: 11/28/17 10:40 Dose: 10 mg Famotidine (Pepcid) 20 mg PO DAILY [facility] Last Admin: 11/28/17 10:40 Dose: 20 mg Furosemide (Lasix) 40 mg PO DAILY [facility] Last Admin: 11/28/17 10:40 Dose: 40 mg Heparin Sodium (Porcine) (Heparin) 5,000 units SC Q12 [facility] Last Admin: 11/28/17 10:40 Dose: 5,000 units Piperacillin Sod/Tazobactam Sod (Zosyn 3.375 Gm Iv Premix) 3.375 gm in 50 mls @ 100 mls/hr IVPB Q8H [facility] PRN Reason: Protocol Last Admin: 11/28/17 12:34 Dose: 100 mls/hr Insulin Aspart (Novolog) 0 unit SC ACHS [facility] PRN Reason: Protocol Last Admin: 11/28/17 17:27 Dose: 6 unit Insulin Detemir (Levemir) 15 unit SC Q12 [facility] Last Admin: 11/28/17 10:40 Dose: 15 unit Levetiracetam (Keppra) 500 mg PO BID [facility] Last Admin: 11/28/17 17:26 Dose: 500 mg Losartan Potassium (Cozaar) 100 mg PO DAILY [facility] Last Admin: 11/28/17 10:40 Dose: 100 mg Metformin HCl (Glucophage) 1,000 mg PO BID [facility] Last Admin: 11/28/17 17:26 Dose: 1,000 mg Rosuvastatin Calcium (Crestor) 10 mg PO DAILY [facility] Last Admin: 11/28/17 10:40 Dose: 10 mg - Labs Labs: 11/28/17 07:22 11/28/17 07:22
[2017-11-29] MEDS: Piperacill/Tazo 3.375gm in Dex 3.375 GM/50 ML BAG IVPB SCH ×3 (03:16→21:20)
[2017-11-29 07:21] LABS: BASO % 0.7 % (0.0-2.0); EOS # 0.1 K/uL (0.0-0.7); EOS % 1.5 % (0.0-4.0); LYMPH # 2.3 K/uL (1.0-4.3); LYMPH % 35.1 % (20.0-40.0); MEAN CELL VOLUME 85.9 fL (81.0-99.0); MEAN CORPUSCULAR HGB CONC 36.1 g/dL (33.0-37.0); MEAN PLATELET VOLUME 8.5 fL (7.2-11.7); MONO # 0.4 K/uL (0.0-0.8); NEUT # 3.6 K/uL (1.8-7.0); NEUT % 56.7 % (50.0-75.0); NRBC % 0.1 % (0.0-2.0); RBC 3.55 Mil/uL (3.80-5.20); RED CELL DISTRIBUTION WIDTH 14.6 % (11.5-14.5); WHITE BLOOD COUNT 6.4 K/uL (4.8-10.8)
[2017-11-29] MEDS: (Novolog) Insulin Aspart, Recombinant 100 u/ml 10 ml vial SC SCH ×4 (08:00→21:57)
[2017-11-29 08:05] LABS: ALB/GLOB RATIO 0.8 (1.0-2.1); ALBUMIN 3.2 g/dL (3.5-5.0); ALT/SGPT 19 U/L (9-52); AST/SGOT 22 U/L (14-36); BLOOD UREA NITROGEN 15 mg/dL (7-17); CALCIUM 8.6 mg/dl (8.6-10.4); GFR AFRICAN-AMERICAN > 60; GFR NON-AFRICAN AMERICAN > 60
[2017-11-29] MEDS: Insulin Detemir 100 units/ml Vial (Levemir) SC SCH ×2 (10:14→21:56)
--- NOTE | 2017-11-29 11:26 | CP.PCM.PN ---
<Loan Parrish - Last Filed: 11/29/17 11:24> Subjective - Date & Time of Evaluation Date of Evaluation: 11/29/17 Time of Evaluation: 11:24 - Subjective Subjective: Podiatry note for Dr. Ferreira 47 year old female patient was seen at bedside this morning concerning right foot cellulitis and open wound. Patient was resting comfortably in bed AAO x3. NAD. Dressing to right foot remains c/d/i. Patient was advised to keep the dressing clean dry and intact. No other pedal complaints. Patient denies of any N/V/F/C or SOB today Objective - Vital Signs/Intake and Output Vital Signs (last 24 hours): Temp Pulse Resp BP Pulse Ox 98 F 83 20 140/70 97 11/29/17 07:00 11/29/17 07:00 11/29/17 07:00 11/29/17 10:17 11/29/17 07:00 Intake and Output: 11/29/17 11/29/17 06:59 18:59 Intake Total 750 Balance 750 - Medications Medications: Current Medications Acetaminophen (Tylenol 325mg Tab) 650 mg PO Q8 PRN PRN Reason: Pain, Mild (1-3) Last Admin: 11/28/17 21:22 Dose: 650 mg Albuterol (Ventolin Hfa 90 Mcg/Actuation (8 G)) 2 puff IH RQ6 PRN PRN Reason: Wheezing Amlodipine Besylate (Norvasc) 10 mg PO DAILY [facility] Last Admin: 11/29/17 10:18 Dose: 10 mg Famotidine (Pepcid) 20 mg PO DAILY [facility] Last Admin: 11/29/17 10:19 Dose: 20 mg Furosemide (Lasix) 40 mg PO DAILY [facility] Last Admin: 11/29/17 10:17 Dose: 40 mg Heparin Sodium (Porcine) (Heparin) 5,000 units SC Q12 [facility] Last Admin: 11/29/17 10:16 Dose: 5,000 units Piperacillin Sod/Tazobactam Sod (Zosyn 3.375 Gm Iv Premix) 3.375 gm in 50 mls @ 100 mls/hr IVPB Q8H [facility] PRN Reason: Protocol Last Admin: 11/29/17 03:16 Dose: 100 mls/hr Insulin Aspart (Novolog) 0 unit SC ACHS [facility] PRN Reason: Protocol Last Admin: 11/29/17 08:00 Dose: Not Given Insulin Detemir (Levemir) 15 unit SC Q12 [facility] Last Admin: 11/29/17 10:14 Dose: 15 unit Levetiracetam (Keppra) 500 mg PO BID [facility] Last Admin: 11/29/17 10:17 Dose: 500 mg Losartan Potassium (Cozaar) 100 mg PO DAILY [facility] Last Admin: 11/29/17 10:16 Dose: 100 mg Metformin HCl (Glucophage) 1,000 mg PO BID [facility] Last Admin: 11/29/17 10:16 Dose: 1,000 mg Rosuvastatin Calcium (Crestor) 10 mg PO DAILY [facility] Last Admin: 11/29/17 10:16 Dose: 10 mg - Labs Labs: 11/29/17 07:08 11/29/17 07:08 - Constitutional Appears: Well, Non-toxic, No Acute Distress - Extremities Exam Additional comments: Right lower extremity exam DERM: Open wound noted to medial aspect of right 1st MTPJ measuring 3m x 3cm x 0.3cm with mostly fibrotic base. Mild serous drainage is noted from the wound. No purulent discharge noted. Wound margins appears slightly necrotic with dark discolorations, not dried blood. No mal-odor present. ORTHO: Mild pain on palpation in passive ROM to joints distal to ankle bilaterally VASC: Non-palpable DP and PT noteded bilaterally. 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 Ferreira this AM Labs and Vitals reviewed Right foot dressed with Xeroform, DSD Xray - no mention of OM MRI result - Possible OM to 2nd digit and 1st Met head Arterial doppler - No significant occlusion Venous doppler - Negative DVT WCX Final: Beta hemolytic Group B Strep, Corynebacterium species Continue IV Abx Podiatry will continue to follow in house Vascular note appreciated; CTA of the LE showed no stenosis ID note appreciated. <Arpit Ferreira - Last Filed: 11/30/17 12:49> Objective - Vital Signs/Intake and Output Vital Signs (last 24 hours): Temp Pulse Resp BP Pulse Ox 98 F 76 20 148/80 96 11/30/17 08:18 11/30/17 08:18 11/30/17 08:18 11/30/17 11:00 11/30/17 08:18 Intake and Output: 11/30/17 11/30/17 06:59 18:59 Intake Total Balance - Medications Medications: Current Medications Acetaminophen (Tylenol 325mg Tab) 650 mg PO Q8 PRN PRN Reason: Pain, Mild (1-3) Last Admin: 11/30/17 05:40 Dose: 650 mg Albuterol (Ventolin Hfa 90 Mcg/Actuation (8 G)) 2 puff IH RQ6 PRN PRN Reason: Wheezing Amlodipine Besylate (Norvasc) 10 mg PO DAILY [facility] Last Admin: 11/30/17 11:00 Dose: 10 mg Famotidine (Pepcid) 20 mg PO DAILY [facility] Last Admin: 11/30/17 11:00 Dose: 20 mg Furosemide (Lasix) 40 mg PO DAILY [facility] Last Admin: 11/30/17 11:00 Dose: 40 mg Heparin Sodium (Porcine) (Heparin) 5,000 units SC Q12 [facility] Last Admin: 11/30/17 11:00 Dose: Not Given Piperacillin Sod/Tazobactam Sod (Zosyn 3.375 Gm Iv Premix) 3.375 gm in 50 mls @ 100 mls/hr IVPB Q8H [facility] PRN Reason: Protocol Last Admin: 11/30/17 12:38 Dose: 100 mls/hr Insulin Aspart (Novolog) 0 unit SC ACHS [facility] PRN Reason: Protocol Last Admin: 11/30/17 12:37 Dose: 6 unit Insulin Detemir (Levemir) 15 unit SC Q12 [facility] Last Admin: 11/30/17 11:00 Dose: 15 unit Levetiracetam (Keppra) 500 mg PO BID [facility] Last Admin: 11/30/17 11:00 Dose: 500 mg Losartan Potassium (Cozaar) 100 mg PO DAILY [facility] Last Admin: 11/30/17 11:00 Dose: 100 mg Metformin HCl (Glucophage) 1,000 mg PO BID [facility] Last Admin: 11/30/17 11:00 Dose: 1,000 mg Rosuvastatin Calcium (Crestor) 10 mg PO DAILY [facility] Last Admin: 11/30/17 11:00 Dose: 10 mg - Labs Labs: 11/30/17 07:04 11/30/17 07:04 Assessment and Plan - Assessment and Plan (Free Text) Plan: Continued local wound care and iv antibiotics . local excision of bone discussed with patient ./Dr Ferreira
[2017-11-29] MEDS ORDERED: Potassium Chloride 20 mEq ER Tab PO STA (15:45)
[2017-11-30] MEDS: Piperacill/Tazo 3.375gm in Dex 3.375 GM/50 ML BAG IVPB SCH ×3 (03:10→21:28)
[2017-11-30 07:15] LABS: BASO # 0.1 K/uL (0.0-0.2); BASO % 0.9 % (0.0-2.0); EOS # 0.1 K/uL (0.0-0.7); EOS % 1.4 % (0.0-4.0); HEMOGLOBIN 10.9 g/dL (11.0-16.0); LYMPH # 2.3 K/uL (1.0-4.3); LYMPH % 33.8 % (20.0-40.0); MEAN CELL VOLUME 86.1 fL (81.0-99.0); MEAN CORPUSCULAR HEMOGLOBIN 30.8 pg (27.0-31.0); MEAN CORPUSCULAR HGB CONC 35.7 g/dL (33.0-37.0); MEAN PLATELET VOLUME 8.2 fL (7.2-11.7); MONO # 0.5 K/uL (0.0-0.8); NEUT # 3.8 K/uL (1.8-7.0); NEUT % 55.9 % (50.0-75.0); NRBC % 0.2 % (0.0-2.0); RBC 3.54 Mil/uL (3.80-5.20); RED CELL DISTRIBUTION WIDTH 14.4 % (11.5-14.5); WHITE BLOOD COUNT 6.8 K/uL (4.8-10.8)
[2017-11-30 07:46] LABS: ALB/GLOB RATIO 0.9 (1.0-2.1); ALBUMIN 3.4 g/dL (3.5-5.0); ALT/SGPT 22 U/L (9-52); AST/SGOT 18 U/L (14-36); BLOOD UREA NITROGEN 15 mg/dL (7-17); CALCIUM 8.6 mg/dl (8.6-10.4); GFR AFRICAN-AMERICAN > 60; GFR NON-AFRICAN AMERICAN 59
[2017-11-30] MEDS: (Novolog) Insulin Aspart, Recombinant 100 u/ml 10 ml vial SC SCH ×4 (08:30→21:32)
[2017-11-30] MEDS: Insulin Detemir 100 units/ml Vial (Levemir) SC SCH ×2 (11:00→21:32)
--- NOTE | 2017-11-30 12:20 | CP.PCM.PN ---
Subjective - Date & Time of Evaluation Date of Evaluation: 11/30/17 Time of Evaluation: 12:18 - Subjective Subjective: Podiatry note for Dr. Ferreira 47 year old female patient was seen at bedside this morning concerning right foot cellulitis and open wound. Patient was resting comfortably in bed AAO x3. NAD. Dressing to right foot remains c/d/i. Patient was advised to keep the dressing clean dry and intact. No other pedal complaints. Patient denies of any N/V/F/C or SOB today Objective - Vital Signs/Intake and Output Vital Signs (last 24 hours): Temp Pulse Resp BP Pulse Ox 98 F 76 20 148/80 96 11/30/17 08:18 11/30/17 08:18 11/30/17 08:18 11/30/17 11:00 11/30/17 08:18 Intake and Output: 11/30/17 11/30/17 06:59 18:59 Intake Total Balance - Medications Medications: Current Medications Acetaminophen (Tylenol 325mg Tab) 650 mg PO Q8 PRN PRN Reason: Pain, Mild (1-3) Last Admin: 11/30/17 05:40 Dose: 650 mg Albuterol (Ventolin Hfa 90 Mcg/Actuation (8 G)) 2 puff IH RQ6 PRN PRN Reason: Wheezing Amlodipine Besylate (Norvasc) 10 mg PO DAILY [facility] Last Admin: 11/30/17 11:00 Dose: 10 mg Famotidine (Pepcid) 20 mg PO DAILY [facility] Last Admin: 11/30/17 11:00 Dose: 20 mg Furosemide (Lasix) 40 mg PO DAILY [facility] Last Admin: 11/30/17 11:00 Dose: 40 mg Heparin Sodium (Porcine) (Heparin) 5,000 units SC Q12 [facility] Last Admin: 11/30/17 11:00 Dose: Not Given Piperacillin Sod/Tazobactam Sod (Zosyn 3.375 Gm Iv Premix) 3.375 gm in 50 mls @ 100 mls/hr IVPB Q8H [facility] PRN Reason: Protocol Last Admin: 11/30/17 03:10 Dose: 100 mls/hr Insulin Aspart (Novolog) 0 unit SC ACHS [facility] PRN Reason: Protocol Last Admin: 11/30/17 08:30 Dose: 6 unit Insulin Detemir (Levemir) 15 unit SC Q12 [facility] Last Admin: 11/30/17 11:00 Dose: 15 unit Levetiracetam (Keppra) 500 mg PO BID [facility] Last Admin: 11/30/17 11:00 Dose: 500 mg Losartan Potassium (Cozaar) 100 mg PO DAILY [facility] Last Admin: 11/30/17 11:00 Dose: 100 mg Metformin HCl (Glucophage) 1,000 mg PO BID [facility] Last Admin: 11/30/17 11:00 Dose: 1,000 mg Rosuvastatin Calcium (Crestor) 10 mg PO DAILY [facility] Last Admin: 11/30/17 11:00 Dose: 10 mg - Labs Labs: 11/30/17 07:04 11/30/17 07:04 - Constitutional Appears: Well, Non-toxic, No Acute Distress - Extremities Exam Additional comments: Right lower extremity exam DERM: Open wound noted to medial aspect of right 1st MTPJ measuring 3m x 3cm x 0.3cm with mostly fibrotic base. no drainage is noted from the wound. No purulent discharge noted. Wound margins appears slightly necrotic with dark discolorations, not dried blood. No mal-odor present. ORTHO: Mild pain on palpation in passive ROM to joints distal to ankle bilaterally VASC: Non-palpable DP and PT noteded bilaterally. 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 Ferreira Labs and Vitals reviewed Right foot dressed with DSD Xray - no mention of OM MRI result - Possible OM to 2nd digit and 1st Met head Arterial doppler - No significant occlusion Venous doppler - Negative DVT WCX Final: Beta hemolytic Group B Strep, Corynebacterium species Continue IV Abx Podiatry will continue to follow in house Vascular note appreciated; CTA of the LE showed no stenosis ID note appreciated.
--- NOTE | 2017-11-30 15:18 | CP.PCM.PN ---
Subjective - Date & Time of Evaluation Date of Evaluation: 11/30/17 Time of Evaluation: 09:00 - Subjective Subjective: possible OM right foot severe cellulitis/ lymphedema foot and leg may need OR debridement Vascular following - CTA pending IV rx reordered / cultures reviewed Objective - Vital Signs/Intake and Output Vital Signs (last 24 hours): Temp Pulse Resp BP Pulse Ox 98 F 76 20 148/80 96 11/30/17 08:18 11/30/17 08:18 11/30/17 08:18 11/30/17 11:00 11/30/17 08:18 Intake and Output: 11/30/17 11/30/17 06:59 18:59 Intake Total Balance - Medications Medications: Current Medications Acetaminophen (Tylenol 325mg Tab) 650 mg PO Q8 PRN PRN Reason: Pain, Mild (1-3) Last Admin: 11/30/17 05:40 Dose: 650 mg Albuterol (Ventolin Hfa 90 Mcg/Actuation (8 G)) 2 puff IH RQ6 PRN PRN Reason: Wheezing Amlodipine Besylate (Norvasc) 10 mg PO DAILY [facility] Last Admin: 11/30/17 11:00 Dose: 10 mg Famotidine (Pepcid) 20 mg PO DAILY [facility] Last Admin: 11/30/17 11:00 Dose: 20 mg Furosemide (Lasix) 40 mg PO DAILY [facility] Last Admin: 11/30/17 11:00 Dose: 40 mg Heparin Sodium (Porcine) (Heparin) 5,000 units SC Q12 [facility] Last Admin: 11/30/17 11:00 Dose: Not Given Piperacillin Sod/Tazobactam Sod (Zosyn 3.375 Gm Iv Premix) 3.375 gm in 50 mls @ 100 mls/hr IVPB Q8H [facility] PRN Reason: Protocol Last Admin: 11/30/17 12:38 Dose: 100 mls/hr Insulin Aspart (Novolog) 0 unit SC ACHS [facility] PRN Reason: Protocol Last Admin: 11/30/17 12:37 Dose: 6 unit Insulin Detemir (Levemir) 15 unit SC Q12 [facility] Last Admin: 11/30/17 11:00 Dose: 15 unit Levetiracetam (Keppra) 500 mg PO BID [facility] Last Admin: 11/30/17 11:00 Dose: 500 mg Losartan Potassium (Cozaar) 100 mg PO DAILY [facility] Last Admin: 11/30/17 11:00 Dose: 100 mg Metformin HCl (Glucophage) 1,000 mg PO BID [facility] Last Admin: 11/30/17 11:00 Dose: 1,000 mg Rosuvastatin Calcium (Crestor) 10 mg PO DAILY [facility] Last Admin: 11/30/17 11:00 Dose: 10 mg - Labs Labs: 11/30/17 07:04 11/30/17 07:04 - Constitutional Appears: Non-toxic, Chronically Ill - Head Exam Head Exam: NORMOCEPHALIC - Eye Exam Eye Exam: Normal appearance Pupil Exam: NORMAL ACCOMODATION - ENT Exam ENT Exam: Mucous Membranes Dry - Neck Exam Neck Exam: absent: Lymphadenopathy - Respiratory Exam Respiratory Exam: Decreased Breath Sounds - Cardiovascular Exam Cardiovascular Exam: REGULAR RHYTHM - GI/Abdominal Exam GI & Abdominal Exam: Distended, Soft - Rectal Exam Rectal Exam: Deferred - Exam Exam: NORMAL INSPECTION - Extremities Exam Extremities Exam: Pedal Edema - Back Exam Back Exam: absent: CVA tenderness (L), CVA tenderness (R) - Neurological Exam Neurological Exam: Alert, Awake, Oriented x3 Neuro motor strength exam: Left Upper Extremity: 4, Right Upper Extremity: 4, Left Lower Extremity: 4, Right Lower Extremity: 4 - Psychiatric Exam Psychiatric exam: Normal Mood - Skin Skin Exam: Dry Assessment and Plan - Assessment and Plan (Free Text) Assessment: possible OM right foot severe cellulitis/ lymphedema foot and leg may need OR debridement Vascular following - CTA pending IV rx reordered / cultures reviewed
[2017-12-01 07:14] LABS: PROTHROMBIN TIME 11.6 SECONDS (9.7-12.2)
[2017-12-01 07:15] LABS: BASO # 0.1 K/uL (0.0-0.2); BASO % 0.8 % (0.0-2.0); EOS # 0.1 K/uL (0.0-0.7); EOS % 1.3 % (0.0-4.0); HEMOGLOBIN 10.4 g/dL (11.0-16.0); LYMPH # 2.5 K/uL (1.0-4.3); LYMPH % 36.4 % (20.0-40.0); MEAN CELL VOLUME 84.9 fL (81.0-99.0); MEAN CORPUSCULAR HEMOGLOBIN 29.3 pg (27.0-31.0); MEAN CORPUSCULAR HGB CONC 34.5 g/dL (33.0-37.0); MEAN PLATELET VOLUME 8.1 fL (7.2-11.7); MONO # 0.5 K/uL (0.0-0.8); MONO % 7.7 % (0.0-10.0); NEUT # 3.7 K/uL (1.8-7.0); NEUT % 53.8 % (50.0-75.0); RBC 3.55 Mil/uL (3.80-5.20); RED CELL DISTRIBUTION WIDTH 14.4 % (11.5-14.5); WHITE BLOOD COUNT 6.8 K/uL (4.8-10.8)
[2017-12-01 07:44] LABS: ALB/GLOB RATIO 0.9 (1.0-2.1); ALBUMIN 3.4 g/dL (3.5-5.0); ALT/SGPT 23 U/L (9-52); AST/SGOT 23 U/L (14-36); BLOOD UREA NITROGEN 18 mg/dL (7-17); CALCIUM 8.9 mg/dl (8.6-10.4); GFR AFRICAN-AMERICAN > 60; GFR NON-AFRICAN AMERICAN 59
[2017-12-01] MEDS: (Novolog) Insulin Aspart, Recombinant 100 u/ml 10 ml vial SC SCH ×4 (08:29→21:21)
[2017-12-01] MEDS ORDERED: SODIUM CHLORIDE 0.9% IVPB SCH (09:15)
[2017-12-01] MEDS ORDERED: VANCOMYCIN IVPB SCH (09:15)
[2017-12-01] MEDS: Insulin Detemir 100 units/ml Vial (Levemir) SC SCH ×2 (09:48→21:20)
[2017-12-01] MEDS: POLYETHYLENE GLYCOL 3350 17 GM/Dose PACKET PO SCH (09:48)
--- NOTE | 2017-12-01 09:54 | CP.PCM.PN ---
Subjective - Date & Time of Evaluation Date of Evaluation: 12/01/17 Time of Evaluation: 09:54 - Subjective Subjective: Medicine progress note for Dr. Wagner's service: Patient seen and examined. Patient with complaint of constipation for several days. Patient is NPO for podiatric surgery this morning. Objective - Vital Signs/Intake and Output Vital Signs (last 24 hours): Temp Pulse Resp BP Pulse Ox 98.4 F 71 20 129/72 97 12/01/17 08:07 12/01/17 08:07 12/01/17 08:07 12/01/17 08:07 12/01/17 08:07 Intake and Output: 12/01/17 12/01/17 06:59 18:59 Intake Total 650 Balance 650 - Medications Medications: Current Medications Acetaminophen (Tylenol 325mg Tab) 650 mg PO Q8 PRN PRN Reason: Pain, Mild (1-3) Last Admin: 11/30/17 05:40 Dose: 650 mg Albuterol (Ventolin Hfa 90 Mcg/Actuation (8 G)) 2 puff IH RQ6 PRN PRN Reason: Wheezing Amlodipine Besylate (Norvasc) 10 mg PO DAILY [facility] Last Admin: 12/01/17 09:48 Dose: Not Given Famotidine (Pepcid) 20 mg PO DAILY [facility] Last Admin: 12/01/17 09:48 Dose: Not Given Furosemide (Lasix) 40 mg PO DAILY [facility] Last Admin: 12/01/17 09:48 Dose: Not Given Heparin Sodium (Porcine) (Heparin) 5,000 units SC Q12 [facility] Last Admin: 11/30/17 11:00 Dose: Not Given Piperacillin Sod/Tazobactam Sod (Zosyn 3.375 Gm Iv Premix) 3.375 gm in 50 mls @ 100 mls/hr IVPB Q8H [facility] PRN Reason: Protocol Vancomycin HCl 1,000 mg/ (Sodium Chloride) 250 mls @ 166.6 mls/hr IVPB Q12H [facility] PRN Reason: Protocol Insulin Aspart (Novolog) 0 unit SC ACHS [facility] PRN Reason: Protocol Last Admin: 12/01/17 08:29 Dose: Not Given Insulin Detemir (Levemir) 15 unit SC Q12 [facility] Last Admin: 12/01/17 09:48 Dose: Not Given Levetiracetam (Keppra) 500 mg PO BID [facility] Last Admin: 12/01/17 09:48 Dose: Not Given Losartan Potassium (Cozaar) 100 mg PO DAILY [facility] Last Admin: 12/01/17 09:48 Dose: Not Given Metformin HCl (Glucophage) 1,000 mg PO BID [facility] Last Admin: 12/01/17 09:48 Dose: Not Given Polyethylene Glycol (Miralax) 17 gm PO DAILY [facility] Last Admin: 12/01/17 09:48 Dose: Not Given Rosuvastatin Calcium (Crestor) 10 mg PO DAILY [facility] Last Admin: 12/01/17 09:48 Dose: Not Given - Labs Labs: 12/01/17 06:57 12/01/17 06:57 PT 11.6 SECONDS (9.7-12.2) 12/01/17 06:57 INR 1.0 12/01/17 06:57 - Constitutional Appears: No Acute Distress - Head Exam Head Exam: ATRAUMATIC, NORMOCEPHALIC - Eye Exam Eye Exam: EOMI - ENT Exam ENT Exam: Mucous Membranes Moist - Respiratory Exam Respiratory Exam: Clear to Ausculation Bilateral - Cardiovascular Exam Cardiovascular Exam: +S1, +S2 - GI/Abdominal Exam GI & Abdominal Exam: Soft. absent: Tenderness - Extremities Exam Additional comments: left arm with PICC line right lower extremity swollen, right foot wrapped - Neurological Exam Neurological Exam: Alert, Awake - Psychiatric Exam Psychiatric exam: Normal Affect - Skin Skin Exam: Warm Assessment and Plan - Assessment and Plan (Free Text) Assessment: Osteomyelitis of R Foot -12/01: Patient to go to OR today with Dr. Ferreira for debridement. Continue zosyn 3.375g Q8h and Vancomycin 1g q12h 6-[address] Deleon -11/28: patient with PICC; will be going for debridement w/ Dr. Ferreira; will need 6 -8 weeks of vanc after surgical interventions are done -11/27: awaiting PICC line placement for 6-8 weeks of vanc and zosyn which she can receive as outpatient once done with surgical interventions if warranted -f/u CTA of lower extremities as per surgery 11/26: Afebrile. WBC 7.6. Patient did not receive last dose of Vanco 2/2 difficult needle stick (lost line). Awaiting PICC placement. MRI R Forefoot 11/25/17 - 2nd distal phalynx osteomyelitis; R foot cellulitis; 1st proximal phalynx soft tissue ulceration. see full report. Patient did not receive last dose of Vanco 2/2 difficult needle stick. She is awaiting placement of PICC line. Wound culture positive for - Corynebacterium (prelim) ID Consult, Dr. Deleon, f/u recs. 6: afebrile; Podiatry Consult, Dr. Ferreira, f/u recs - Lymphedema of R Foot (chronic) Tylenol 325mg Tab) 650 mg PO Q8 PRN Vancomycin 1 Gm/Ns 200 Ml) 1 gm in 200 mls @ 133 mls/hr IVPB Q12H [facility] Right foot dressed wiht Xeroform, DSD Xray - no mention of OM f/u Arterial doppler f/u Venous doppler Hypertension 12/01: BP 129/72, continue current regimen Norvasc 10 mg PO DAILY [facility] Lasix 40 mg PO DAILY [facility] Cozaar 100 mg PO DAILY [facility] H[facility] Crestor 10 mg PO DAILY [facility] Diabetes Levemir increased to 15u Q12H. Novolog ISS inc to high dose Glucophage 1,000 mg PO BID [facility] hypoglycemia protocol Anemia Hgb 10.4- stable, continue to monitor likely due to chronic disease will check labs: B12, ferretin, protein electrophoresis Electrolyte Imbalance 12/01: magnesium low 11/26: Hypomagnesemia, Mg 1.4 - monitor and replete 11/25: Hypokalemia, K 3.2 - Resolved 11/25: Hypomagnesemia, Mg 1.3 - monitor and replete Prophylaxis Ventolin Hfa 90 Mcg/Actuation (8 G)) 2 puff IH RQ6 PRN Heparin 5,000 units SC Q12 [facility]- held for OR today Pepcid 20mg PO qD Miralax daily Dispo: most likely will need to go home with skilled PT/Nursing as 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 All medical management as per Dr. Sean Wagner.
[2017-12-01] MEDS: Piperacill/Tazo 3.375gm in Dex 3.375 GM/50 ML BAG IVPB SCH ×2 (10:09→17:36)
[2017-12-01] MEDS ORDERED: Glucagon Recombinant 1 mg Inj IM PRN (10:11)
[2017-12-01] MEDS ORDERED: Dextrose 50% SYRINGE Inj (50 ml) IVP PRN (10:11)
[2017-12-01] MEDS: Vancomycin 1 gm/NS 200 ml 1 GM/200 ML BAG IVPB SCH ×2 (11:23→23:28)
--- NOTE | 2017-12-01 11:52 | CP.PCM.PN ---
Subjective - Date & Time of Evaluation Date of Evaluation: 12/01/17 Time of Evaluation: 07:00 - Subjective Subjective: iv rx renewed may have om Objective - Vital Signs/Intake and Output Vital Signs (last 24 hours): Temp Pulse Resp BP Pulse Ox 98.4 F 71 20 129/72 97 12/01/17 08:07 12/01/17 08:07 12/01/17 08:07 12/01/17 08:07 12/01/17 08:07 Intake and Output: 12/01/17 12/01/17 06:59 18:59 Intake Total 650 Balance 650 - Medications Medications: Current Medications Acetaminophen (Tylenol 325mg Tab) 650 mg PO Q8 PRN PRN Reason: Pain, Mild (1-3) Last Admin: 11/30/17 05:40 Dose: 650 mg Albuterol (Ventolin Hfa 90 Mcg/Actuation (8 G)) 2 puff IH RQ6 PRN PRN Reason: Wheezing Amlodipine Besylate (Norvasc) 10 mg PO DAILY [facility] Last Admin: 12/01/17 09:48 Dose: Not Given Dextrose (Dextrose 50% Inj) 0 ml IVP .STAT PRN; Protocol PRN Reason: Hypoglycemia Protocol Dextrose (Glutose 15) 0 gm PO .ONCE PRN; Protocol PRN Reason: Hypoglycemia Protocol Famotidine (Pepcid) 20 mg PO DAILY [facility] Last Admin: 12/01/17 09:48 Dose: Not Given Furosemide (Lasix) 40 mg PO DAILY [facility] Last Admin: 12/01/17 09:48 Dose: Not Given Glucagon (Glucagen Diagnostic Kit) 0 mg IM .STAT PRN; Protocol PRN Reason: Hypoglycemia Protocol Heparin Sodium (Porcine) (Heparin) 5,000 units SC Q12 [facility] Last Admin: 11/30/17 11:00 Dose: Not Given Piperacillin Sod/Tazobactam Sod (Zosyn 3.375 Gm Iv Premix) 3.375 gm in 50 mls @ 100 mls/hr IVPB Q8H [facility] PRN Reason: Protocol Last Admin: 12/01/17 10:09 Dose: 100 mls/hr Vancomycin/Sodium Chloride (Vancomycin 1 Gm/Ns 200 Ml) 1 gm in 200 mls @ 133.333 mls/hr IVPB Q12H [facility] PRN Reason: Protocol Stop: 12/06/17 11:01 Last Admin: 12/01/17 11:23 Dose: 133.333 mls/hr Dextrose (Dextrose 5% In Water 1000 Ml) 1,000 mls @ 0 mls/hr IV .Q0M PRN; Protocol; Per Protocol PRN Reason: Hypoglycemia Protocol Insulin Aspart (Novolog) 0 unit SC ACHS [facility] PRN Reason: Protocol Last Admin: 12/01/17 08:29 Dose: Not Given Insulin Detemir (Levemir) 15 unit SC Q12 [facility] Last Admin: 12/01/17 09:48 Dose: Not Given Levetiracetam (Keppra) 500 mg PO BID [facility] Last Admin: 12/01/17 09:48 Dose: Not Given Losartan Potassium (Cozaar) 100 mg PO DAILY [facility] Last Admin: 12/01/17 09:48 Dose: Not Given Metformin HCl (Glucophage) 1,000 mg PO BID [facility] Last Admin: 12/01/17 09:48 Dose: Not Given Polyethylene Glycol (Miralax) 17 gm PO DAILY [facility] Last Admin: 12/01/17 09:48 Dose: Not Given Rosuvastatin Calcium (Crestor) 10 mg PO DAILY [facility] Last Admin: 12/01/17 09:48 Dose: Not Given - Labs Labs: 12/01/17 06:57 12/01/17 06:57 PT 11.6 SECONDS (9.7-12.2) 12/01/17 06:57 INR 1.0 12/01/17 06:57 - Constitutional Appears: Non-toxic, Chronically Ill - Head Exam Head Exam: NORMOCEPHALIC - Eye Exam Eye Exam: absent: Scleral icterus - ENT Exam ENT Exam: Mucous Membranes Dry - Neck Exam Neck Exam: absent: Lymphadenopathy - Respiratory Exam Respiratory Exam: Decreased Breath Sounds - Cardiovascular Exam Cardiovascular Exam: REGULAR RHYTHM Assessment and Plan - Assessment and Plan (Free Text) Plan: possible OM cont IV rx podiatry to debride
[2017-12-01 16:54] LABS: FERRITIN 9.5 ng/mL
[2017-12-01 17:24] LABS: FOLATE 13.5 ng/mL
--- NOTE | 2017-12-01 20:07 | CP.PCM.PN ---
Subjective - Date & Time of Evaluation Date of Evaluation: 12/01/17 Time of Evaluation: 20:04 - Subjective Subjective: Podiatry note for Dr. Ferreira 47 year old female patient was seen at bedside this morning concerning open wound to Right foot 1st MTPJ medially. Patient was resting comfortably in bed AAO x3. NAD. Dressing to right foot remains c/d/i. Patient was reminded of podiatry plan for surgery tomorrow; debridement of non-viable tissue with partial resection of 1st metatarsal. Patient agrees with podiaty plan. No other pedal complaints. Patient denies of any N/V/F/C or SOB today Objective - Vital Signs/Intake and Output Vital Signs (last 24 hours): Temp Pulse Resp BP Pulse Ox 97.4 F L 73 20 144/87 100 12/01/17 16:00 12/01/17 16:00 12/01/17 16:00 12/01/17 16:00 12/01/17 16:00 Intake and Output: 12/01/17 12/02/17 18:59 06:59 Intake Total 610 Balance 610 - Medications Medications: Current Medications Acetaminophen (Tylenol 325mg Tab) 650 mg PO Q8 PRN PRN Reason: Pain, Mild (1-3) Last Admin: 11/30/17 05:40 Dose: 650 mg Albuterol (Ventolin Hfa 90 Mcg/Actuation (8 G)) 2 puff IH RQ6 PRN PRN Reason: Wheezing Amlodipine Besylate (Norvasc) 10 mg PO DAILY [facility] Last Admin: 12/01/17 09:48 Dose: Not Given Dextrose (Dextrose 50% Inj) 0 ml IVP .STAT PRN; Protocol PRN Reason: Hypoglycemia Protocol Dextrose (Glutose 15) 0 gm PO .ONCE PRN; Protocol PRN Reason: Hypoglycemia Protocol Famotidine (Pepcid) 20 mg PO DAILY [facility] Last Admin: 12/01/17 09:48 Dose: Not Given Furosemide (Lasix) 40 mg PO DAILY [facility] Last Admin: 12/01/17 12:11 Dose: 40 mg Glucagon (Glucagen Diagnostic Kit) 0 mg IM .STAT PRN; Protocol PRN Reason: Hypoglycemia Protocol Heparin Sodium (Porcine) (Heparin) 5,000 units SC Q12 [facility] Last Admin: 11/30/17 11:00 Dose: Not Given Piperacillin Sod/Tazobactam Sod (Zosyn 3.375 Gm Iv Premix) 3.375 gm in 50 mls @ 100 mls/hr IVPB Q8H [facility] PRN Reason: Protocol Last Admin: 12/01/17 17:36 Dose: 100 mls/hr Vancomycin/Sodium Chloride (Vancomycin 1 Gm/Ns 200 Ml) 1 gm in 200 mls @ 133.333 mls/hr IVPB Q12H [facility] PRN Reason: Protocol Stop: 12/06/17 11:01 Last Admin: 12/01/17 11:23 Dose: 133.333 mls/hr Dextrose (Dextrose 5% In Water 1000 Ml) 1,000 mls @ 0 mls/hr IV .Q0M PRN; Protocol; Per Protocol PRN Reason: Hypoglycemia Protocol Insulin Aspart (Novolog) 0 unit SC ACHS [facility] PRN Reason: Protocol Last Admin: 12/01/17 17:37 Dose: 8 unit Insulin Detemir (Levemir) 15 unit SC Q12 [facility] Last Admin: 12/01/17 09:48 Dose: Not Given Levetiracetam (Keppra) 500 mg PO BID [facility] Last Admin: 12/01/17 17:36 Dose: 500 mg Losartan Potassium (Cozaar) 100 mg PO DAILY [facility] Last Admin: 12/01/17 12:14 Dose: 100 mg Metformin HCl (Glucophage) 1,000 mg PO BID [facility] Last Admin: 12/01/17 17:35 Dose: 1,000 mg Polyethylene Glycol (Miralax) 17 gm PO DAILY [facility] Last Admin: 12/01/17 09:48 Dose: Not Given Rosuvastatin Calcium (Crestor) 10 mg PO DAILY [facility] Last Admin: 12/01/17 12:15 Dose: 10 mg - Labs Labs: 12/01/17 06:57 12/01/17 06:57 PT 11.6 SECONDS (9.7-12.2) 12/01/17 06:57 INR 1.0 12/01/17 06:57 - Constitutional Appears: Well, Non-toxic, No Acute Distress - Head Exam Head Exam: ATRAUMATIC - Extremities Exam Additional comments: Right lower extremity exam DERM: Open wound noted to medial aspect of right 1st MTPJ measuring 3m x 3cm x 0.3cm with mostly fibrotic base. no drainage is noted from the wound. No purulent discharge noted. Wound margins appears slightly necrotic with dark discolorations, not dried blood. No mal-odor present. ORTHO: Mild pain on palpation in passive ROM to joints distal to ankle bilaterally VASC: Non-palpable DP and PT noteded bilaterally. 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 Ferreira Labs and Vitals reviewed Right foot dressed with DSD MRI - Possible OM to 2nd digit and 1st Met head Arterial doppler - No significant occlusion WCX Final: Beta hemolytic Group B Strep, Corynebacterium species Continue IV Abx Vascular note appreciated; CTA of the LE showed no stenosis ID note appreciated. Podiatry will continue to follow in house Patient to OR tomorrow for Right foot wound debridement and partial resection of 1st metatarsal. NPO after 11PM order placed
[2017-12-02] MEDS: Piperacill/Tazo 3.375gm in Dex 3.375 GM/50 ML BAG IVPB SCH ×3 (00:30→16:33)
[2017-12-02 05:37] LABS: BASO # 0.1 K/uL (0.0-0.2); BASO % 0.8 % (0.0-2.0); EOS # 0.1 K/uL (0.0-0.7); EOS % 1.3 % (0.0-4.0); HEMOGLOBIN 10.5 g/dL (11.0-16.0); LYMPH # 1.9 K/uL (1.0-4.3); LYMPH % 27.5 % (20.0-40.0); MEAN CELL VOLUME 85.2 fL (81.0-99.0); MEAN CORPUSCULAR HEMOGLOBIN 28.2 pg (27.0-31.0); MEAN CORPUSCULAR HGB CONC 33.1 g/dL (33.0-37.0); MEAN PLATELET VOLUME 7.9 fL (7.2-11.7); MONO # 0.5 K/uL (0.0-0.8); MONO % 7.2 % (0.0-10.0); NEUT # 4.5 K/uL (1.8-7.0); NEUT % 63.2 % (50.0-75.0); NRBC % 0.1 % (0.0-2.0); RBC 3.7 Mil/uL (3.80-5.20); RED CELL DISTRIBUTION WIDTH 14.9 % (11.5-14.5); WHITE BLOOD COUNT 7.1 K/uL (4.8-10.8)
[2017-12-02 05:53] LABS: ALB/GLOB RATIO 0.9 (1.0-2.1); ALBUMIN 3.4 g/dL (3.5-5.0); ALT/SGPT 26 U/L (9-52); AST/SGOT 20 U/L (14-36); BLOOD UREA NITROGEN 18 mg/dL (7-17); CALCIUM 8.7 mg/dl (8.6-10.4); GFR AFRICAN-AMERICAN > 60; GFR NON-AFRICAN AMERICAN 53
[2017-12-02] MEDS ORDERED: Lidocaine 2% Inj (20ml) ONE (07:31)
[2017-12-02] MEDS ORDERED: Bupivacaine HCl 0.5% PF (10 ml) Inj ONE (07:31)
--- NOTE | 2017-12-02 07:31 | CP.PCM.PN ---
Subjective - Date & Time of Evaluation Date of Evaluation: 12/02/17 Time of Evaluation: 06:50 - Subjective Subjective: Podiatry note for Dr. Ferreira 47 year old female patient was seen at bedside this morning concerning scheduled surgery of Right foot wound debridement and partial resection of 1st metatarsal. Dressing to right foot remains c/d/i. Patient was reminded of podiatry plan for surgery today and written consent was obtained; debridement of non-viable tissue with partial resection of 1st metatarsal. NPO status confirmed. No other pedal complaints. Patient denies of any N/V/F/C or SOB today Objective - Vital Signs/Intake and Output Vital Signs (last 24 hours): Temp Pulse Resp BP Pulse Ox 98 F 78 20 113/71 99 12/02/17 06:00 12/02/17 06:00 12/02/17 06:00 12/02/17 06:00 12/02/17 06:00 Intake and Output: 12/02/17 12/02/17 06:59 18:59 Intake Total 50 Balance 50 - Medications Medications: Current Medications Acetaminophen (Tylenol 325mg Tab) 650 mg PO Q8 PRN PRN Reason: Pain, Mild (1-3) Last Admin: 11/30/17 05:40 Dose: 650 mg Albuterol (Ventolin Hfa 90 Mcg/Actuation (8 G)) 2 puff IH RQ6 PRN PRN Reason: Wheezing Amlodipine Besylate (Norvasc) 10 mg PO DAILY [facility] Last Admin: 12/01/17 09:48 Dose: Not Given Dextrose (Dextrose 50% Inj) 0 ml IVP .STAT PRN; Protocol PRN Reason: Hypoglycemia Protocol Dextrose (Glutose 15) 0 gm PO .ONCE PRN; Protocol PRN Reason: Hypoglycemia Protocol Famotidine (Pepcid) 20 mg PO DAILY [facility] Last Admin: 12/01/17 09:48 Dose: Not Given Furosemide (Lasix) 40 mg PO DAILY [facility] Last Admin: 12/01/17 12:11 Dose: 40 mg Glucagon (Glucagen Diagnostic Kit) 0 mg IM .STAT PRN; Protocol PRN Reason: Hypoglycemia Protocol Heparin Sodium (Porcine) (Heparin) 5,000 units SC Q12 [facility] Last Admin: 11/30/17 11:00 Dose: Not Given Piperacillin Sod/Tazobactam Sod (Zosyn 3.375 Gm Iv Premix) 3.375 gm in 50 mls @ 100 mls/hr IVPB Q8H [facility] PRN Reason: Protocol Last Admin: 12/02/17 00:30 Dose: 100 mls/hr Vancomycin/Sodium Chloride (Vancomycin 1 Gm/Ns 200 Ml) 1 gm in 200 mls @ 133.333 mls/hr IVPB Q12H [facility] PRN Reason: Protocol Stop: 12/06/17 11:01 Last Admin: 12/01/17 23:28 Dose: 133.333 mls/hr Dextrose (Dextrose 5% In Water 1000 Ml) 1,000 mls @ 0 mls/hr IV .Q0M PRN; Protocol; Per Protocol PRN Reason: Hypoglycemia Protocol Insulin Aspart (Novolog) 0 unit SC ACHS [facility] PRN Reason: Protocol Last Admin: 12/01/17 21:21 Dose: 3 unit Insulin Detemir (Levemir) 15 unit SC Q12 [facility] Last Admin: 12/01/17 21:20 Dose: 15 unit Levetiracetam (Keppra) 500 mg PO BID [facility] Last Admin: 12/01/17 17:36 Dose: 500 mg Losartan Potassium (Cozaar) 100 mg PO DAILY [facility] Last Admin: 12/01/17 12:14 Dose: 100 mg Metformin HCl (Glucophage) 1,000 mg PO BID [facility] Last Admin: 12/01/17 17:35 Dose: 1,000 mg Polyethylene Glycol (Miralax) 17 gm PO DAILY [facility] Last Admin: 12/01/17 09:48 Dose: Not Given Rosuvastatin Calcium (Crestor) 10 mg PO DAILY [facility] Last Admin: 12/01/17 12:15 Dose: 10 mg - Labs Labs: 12/02/17 05:27 12/02/17 05:27 PT 11.6 SECONDS (9.7-12.2) 12/01/17 06:57 INR 1.0 12/01/17 06:57 - Constitutional Appears: Well, Non-toxic, No Acute Distress - Extremities Exam Additional comments: Dresings to right lower extremity intact - Neurological Exam Neurological Exam: Alert, Awake, Oriented x3 - Psychiatric Exam Psychiatric exam: Normal Affect, Normal Mood Assessment and Plan - Assessment and Plan (Free Text) Assessment: 47 yo female patient presenting right foot cellulitis and chronic superficial ulceration to right 1st MTPJ Plan: Patient to OR this AM for Right foot wound debridement and partial resection of 1st metatarsal. Patient was seen, evaluated by bedside discussed in detail with attending Dr. Ferreira Labs and Vitals reviewed Consent for surgery with podiatry this morning in chart No guarantees made regarding the outcome of surgery NPO status confirmed Medicine team made aware of podiatry surgery this morning Podiatry will continue to follow in house
[2017-12-02] MEDS ORDERED: Midazolam 2 MG/2 ML VIAL ONE (07:44)
[2017-12-02] MEDS ORDERED: Propofol 10 mg/ml Inj (20 ML) ONE (07:44)
[2017-12-02] MEDS: (Novolog) Insulin Aspart, Recombinant 100 u/ml 10 ml vial SC SCH ×5 (08:05→22:08)
--- NOTE | 2017-12-02 09:08 | PCM.SURG1 ---
Surgeon's Initial Post Op Note - Surgeon's Notes Surgeon: Dr. Ferreira Maintenance Analyst: Dr. Nohemy Juárez Type of Anesthesia: IV Sedation, Local Anesthesia Administered By: Dr. Oliva Pre-Operative Diagnosis: Right foot non-healing ulceration and osteomyelitis to 1st metatarsal Operative Findings: 3-0 Vicryl, 4-0 Vicryl, 4-0 Nylon Post-Operative Diagnosis: same Operation Performed: Right foot wound debridement and partial ostectomy of 1st metatarsal and proximal phalanx Specimen/Specimens Removed: Right foot 1st metatarsal bone Estimated Blood Loss: EBL {In ML}: 30 Blood Products Given: N/A Drains Used: No Drains Post-Op Condition: Good Date of Surgery/Procedure: 12/02/17 Time of Surgery/Procedure: 08:00
[2017-12-02] MEDS ORDERED: HYDROmorphone 0.5 mg/0.5 ml ISec IVP PRN ×2 (09:16→16:16)
[2017-12-02] MEDS: Insulin Detemir 100 units/ml Vial (Levemir) SC SCH ×2 (10:37→22:10)
[2017-12-02] MEDS: Vancomycin 1 gm/NS 200 ml 1 GM/200 ML BAG IVPB SCH ×2 (10:37→22:09)
[2017-12-02] MEDS: POLYETHYLENE GLYCOL 3350 17 GM/Dose PACKET PO SCH (10:40)
--- NOTE | 2017-12-02 12:12 | CP.PCM.PN ---
Subjective - Date & Time of Evaluation Date of Evaluation: 12/02/17 Time of Evaluation: 07:00 - Subjective Subjective: s/p Right foot wound debridement and partial ostectomy of 1st metatarsal and proximal phalanx Objective - Vital Signs/Intake and Output Vital Signs (last 24 hours): Temp Pulse Resp BP Pulse Ox 97.6 F 76 18 136/71 97 12/02/17 10:00 12/02/17 10:00 12/02/17 10:00 12/02/17 10:36 12/02/17 10:00 Intake and Output: 12/02/17 12/02/17 06:59 18:59 Intake Total 50 450 Balance 50 450 - Medications Medications: Current Medications Acetaminophen (Tylenol 325mg Tab) 650 mg PO Q8 PRN PRN Reason: Pain, Mild (1-3) Last Admin: 11/30/17 05:40 Dose: 650 mg Albuterol (Ventolin Hfa 90 Mcg/Actuation (8 G)) 2 puff IH RQ6 PRN PRN Reason: Wheezing Amlodipine Besylate (Norvasc) 10 mg PO DAILY [facility] Last Admin: 12/02/17 10:36 Dose: 10 mg Dextrose (Dextrose 50% Inj) 0 ml IVP .STAT PRN; Protocol PRN Reason: Hypoglycemia Protocol Dextrose (Glutose 15) 0 gm PO .ONCE PRN; Protocol PRN Reason: Hypoglycemia Protocol Famotidine (Pepcid) 20 mg PO DAILY [facility] Last Admin: 12/02/17 10:36 Dose: 20 mg Furosemide (Lasix) 40 mg PO DAILY [facility] Last Admin: 12/02/17 10:36 Dose: 40 mg Glucagon (Glucagen Diagnostic Kit) 0 mg IM .STAT PRN; Protocol PRN Reason: Hypoglycemia Protocol Heparin Sodium (Porcine) (Heparin) 5,000 units SC Q12 [facility] Last Admin: 12/02/17 10:37 Dose: Not Given Piperacillin Sod/Tazobactam Sod (Zosyn 3.375 Gm Iv Premix) 3.375 gm in 50 mls @ 100 mls/hr IVPB Q8H [facility] PRN Reason: Protocol Last Admin: 12/02/17 10:39 Dose: Not Given Vancomycin/Sodium Chloride (Vancomycin 1 Gm/Ns 200 Ml) 1 gm in 200 mls @ 133.333 mls/hr IVPB Q12H [facility] PRN Reason: Protocol Stop: 12/06/17 11:01 Last Admin: 12/02/17 10:37 Dose: 133.333 mls/hr Dextrose (Dextrose 5% In Water 1000 Ml) 1,000 mls @ 0 mls/hr IV .Q0M PRN; Protocol; Per Protocol PRN Reason: Hypoglycemia Protocol Insulin Aspart (Novolog) 0 unit SC ACHS [facility] PRN Reason: Protocol Last Admin: 12/02/17 12:06 Dose: 8 unit Insulin Detemir (Levemir) 15 unit SC Q12 [facility] Last Admin: 12/02/17 10:37 Dose: 15 unit Levetiracetam (Keppra) 500 mg PO BID [facility] Last Admin: 12/02/17 10:36 Dose: 500 mg Losartan Potassium (Cozaar) 100 mg PO DAILY [facility] Last Admin: 12/02/17 10:36 Dose: 100 mg Metformin HCl (Glucophage) 1,000 mg PO BID [facility] Last Admin: 12/02/17 10:36 Dose: 1,000 mg Polyethylene Glycol (Miralax) 17 gm PO DAILY [facility] Last Admin: 12/02/17 10:40 Dose: 17 gm Rosuvastatin Calcium (Crestor) 10 mg PO DAILY [facility] Last Admin: 12/02/17 10:36 Dose: 10 mg - Labs Labs: 12/02/17 05:27 12/02/17 05:27 PT 11.6 SECONDS (9.7-12.2) 12/01/17 06:57 INR 1.0 12/01/17 06:57 - Constitutional Appears: Non-toxic, Chronically Ill - Head Exam Head Exam: NORMOCEPHALIC - Eye Exam Eye Exam: Normal appearance, PERRL - ENT Exam ENT Exam: Mucous Membranes Dry - Neck Exam Neck Exam: absent: Lymphadenopathy - Respiratory Exam Respiratory Exam: Decreased Breath Sounds - Cardiovascular Exam Cardiovascular Exam: REGULAR RHYTHM - GI/Abdominal Exam GI & Abdominal Exam: Distended, Soft Assessment and Plan - Assessment and Plan (Free Text) Plan: Right foot wound debridement and partial ostectomy of 1st metatarsal and proximal phalanx cont iv antibiotics
--- NOTE | 2017-12-02 16:22 | CP.PCM.PN ---
Subjective - Date & Time of Evaluation Date of Evaluation: 12/02/17 Time of Evaluation: 10:30 - Subjective Subjective: Medicine progress note for Dr. Wagner's service Patient seen and examined post-operatively. Patient resting comfortably and states she is not in any pain. Patient s/p right foot wound debridement and partial ostectomy of 1st metatarsal and proximal phalanx with Dr. Ferreira. Objective - Vital Signs/Intake and Output Vital Signs (last 24 hours): Temp Pulse Resp BP Pulse Ox 97.6 F 76 18 136/71 97 12/02/17 10:00 12/02/17 10:00 12/02/17 10:00 12/02/17 10:36 12/02/17 10:00 Intake and Output: 12/02/17 12/02/17 06:59 18:59 Intake Total 50 1100 Balance 50 1100 - Medications Medications: Current Medications Acetaminophen (Tylenol 325mg Tab) 650 mg PO Q8 PRN PRN Reason: Pain, Mild (1-3) Last Admin: 11/30/17 05:40 Dose: 650 mg Albuterol (Ventolin Hfa 90 Mcg/Actuation (8 G)) 2 puff IH RQ6 PRN PRN Reason: Wheezing Amlodipine Besylate (Norvasc) 10 mg PO DAILY [facility] Last Admin: 12/02/17 10:36 Dose: 10 mg Dextrose (Dextrose 50% Inj) 0 ml IVP .STAT PRN; Protocol PRN Reason: Hypoglycemia Protocol Dextrose (Glutose 15) 0 gm PO .ONCE PRN; Protocol PRN Reason: Hypoglycemia Protocol Famotidine (Pepcid) 20 mg PO DAILY [facility] Last Admin: 12/02/17 10:36 Dose: 20 mg Furosemide (Lasix) 40 mg PO DAILY [facility] Last Admin: 12/02/17 10:36 Dose: 40 mg Glucagon (Glucagen Diagnostic Kit) 0 mg IM .STAT PRN; Protocol PRN Reason: Hypoglycemia Protocol Heparin Sodium (Porcine) (Heparin) 5,000 units SC Q12 [facility] Last Admin: 12/02/17 10:37 Dose: Not Given Piperacillin Sod/Tazobactam Sod (Zosyn 3.375 Gm Iv Premix) 3.375 gm in 50 mls @ 100 mls/hr IVPB Q8H [facility] PRN Reason: Protocol Last Admin: 12/02/17 10:39 Dose: Not Given Vancomycin/Sodium Chloride (Vancomycin 1 Gm/Ns 200 Ml) 1 gm in 200 mls @ 133.333 mls/hr IVPB Q12H [facility] PRN Reason: Protocol Stop: 12/06/17 11:01 Last Admin: 12/02/17 10:37 Dose: 133.333 mls/hr Dextrose (Dextrose 5% In Water 1000 Ml) 1,000 mls @ 0 mls/hr IV .Q0M PRN; Protocol; Per Protocol PRN Reason: Hypoglycemia Protocol Insulin Aspart (Novolog) 0 unit SC ACHS [facility] PRN Reason: Protocol Last Admin: 12/02/17 12:06 Dose: 8 unit Insulin Detemir (Levemir) 15 unit SC Q12 [facility] Last Admin: 12/02/17 10:37 Dose: 15 unit Levetiracetam (Keppra) 500 mg PO BID [facility] Last Admin: 12/02/17 10:36 Dose: 500 mg Losartan Potassium (Cozaar) 100 mg PO DAILY [facility] Last Admin: 12/02/17 10:36 Dose: 100 mg Metformin HCl (Glucophage) 1,000 mg PO BID [facility] Last Admin: 12/02/17 10:36 Dose: 1,000 mg Polyethylene Glycol (Miralax) 17 gm PO DAILY [facility] Last Admin: 12/02/17 10:40 Dose: 17 gm Rosuvastatin Calcium (Crestor) 10 mg PO DAILY [facility] Last Admin: 12/02/17 10:36 Dose: 10 mg - Labs Labs: 12/02/17 05:27 12/02/17 05:27 PT 11.6 SECONDS (9.7-12.2) 12/01/17 06:57 INR 1.0 12/01/17 06:57 - Constitutional Appears: No Acute Distress - Head Exam Head Exam: ATRAUMATIC, NORMOCEPHALIC - Eye Exam Eye Exam: EOMI - ENT Exam ENT Exam: Mucous Membranes Moist - Respiratory Exam Respiratory Exam: Clear to Ausculation Bilateral - Cardiovascular Exam Cardiovascular Exam: +S1, +S2 - GI/Abdominal Exam GI & Abdominal Exam: Soft - Extremities Exam Additional comments: right foot wrapped, patient able to move toes, sensation intact - Neurological Exam Neurological Exam: Alert, Awake - Psychiatric Exam Psychiatric exam: Normal Affect - Skin Skin Exam: Warm Assessment and Plan - Assessment and Plan (Free Text) Assessment: Osteomyelitis of R Foot -12/02: Patient s/p right foot wound debridement and partial ostectomy of 1st metatarsal and proximal phalanx with Dr. Ferreira Gram stain/ culture of tissue sample from OR pending Continue zosyn 3.375g Q8h and Vancomycin 1g q12h 6-[address] Deleon -11/28: patient with PICC -11/26: Afebrile. WBC 7.6. Patient did not receive last dose of Vanco 2/2 difficult needle stick (lost line). Awaiting PICC placement. MRI R Forefoot 11/25/17 - 2nd distal phalynx osteomyelitis; R foot cellulitis; 1st proximal phalynx soft tissue ulceration. see full report. Patient did not receive last dose of Vanco 2/2 difficult needle stick. She is awaiting placement of PICC line. Wound culture positive for - Corynebacterium (prelim) ID Consult, Dr. Deleon, f/u recs. Hypertension controlled, continue current regimen Norvasc 10 mg PO DAILY [facility] Lasix 40 mg PO DAILY [facility] Cozaar 100 mg PO DAILY [facility] HLD Crestor 10 mg PO DAILY [facility] Diabetes Levemir increased to 15u Q12H. 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 All medical management as per Dr. Sean Wagner.
[2017-12-02] MEDS: Tramadol 25 mg PO PRN ×2 (16:31→22:06)
--- NOTE | 2017-12-02 18:39 | PCM.OP ---
Operative Report - Operative Report Date of Surgery/Procedure: 12/02/17 Time of Surgery/Procedure: 08:20 Surgeon: Dr. Ferreira V Belt Mold Assembler And Curer: Dr. Nohemy Juárez Anesthesia/Sedation: IV sedation and local Pre-Operative Diagnosis: 1)Right foot non-healing ulceration with osteomyelitis to head of the 1st metatarsal. 2)Right foot Hallux rigitus Post-Operative Diagnosis: same Indication for Surgery: Indications: The patient is a 47 year-old female with the above diagnoses. The patient has exhausted all conservative treatment at this time and now requires surgical intervention. The patient signed the consent after careful explanation of risks, benefits, complication and alternatives for surgical procedure. No guarantees were given nor implied. Operative Findings: Preparation: The patient was brought to the operating room and placed on the operating room table in supine position. A well-padded pneumatic ankle tourniquet was placed to the patient's Right foot in supramalleolar position. After induction of IV sedation, the Right lower extremity was then prepped and draped in usual sterile manner. Esmarch over the sterile stockinette was utilized to exsanguinate the patient's Right foot. This Esmarch did not touch the patients skin. Pneumatic ankle tourniquet was then inflated to 250 mmHg and procedure began. Procedure/Operation Description: Procedure. 1) Right foot wound debridement. Attention was directed to medial aspect of Right foot at the level of metatarsophalangeal joint where chronic non-healing ulceration was visualized. Utilizing #15 blade, this chronic ulceration was carefully debrided of all non- viable soft tissue. Healthy viable tissue was preserved. Procedure. 2) Right foot Partial ostectomy of 1st metatarsal head, and base of proximal phalanx. Next, Attention was directed to the dorsal aspect of right foot 1st MTPJ. An approximately 5cm linear longitudinal incision was made medial and parallel to extensor halluces longus tendon. The incision was deepened through the subcutaneous tissues using sharp and blunt dissection all the way down to bone. Care was taken to identify and retract all vital neurovascular structures. The extensor digitorum tendons were preserved with retraction. The periosteal and capsular structures were then carefully dissected free of their osseous attachments and reflected medially and laterally thus exposing the head of the 1st metatarsal and the base of proximal phalanx into the operative site. Next, utilizing a sagittal saw, the unhealthy portion of medial aspect of 1st metatarsal head was resected and was passed from operative site to be sent for pathology. Next, Utilizing a sagittal saw, the unhealthy portion of medial aspect of proximal phalanx of Hallux was resected and was passed from operative field to be sent for pathology. The surgical site was irrigated with copious amount of sterile normal saline. The periosteal and capsular structure were re- approximated with #3-0 Vicryl, the subcutaneous layer was reapproximated with #4 -0 vicryl, and the skin layer was re-approximated and coapted using #4-0 Nylon using Horizontal matress suture technique. The Right foot was then dressed with Xeroform, 4x4 gauze, Kerlix and Coban. The attending was present during the entire case. Estimated Blood Loss: 40mL Complications: None Discharge & Condition: Postoperative Condition: The patient tolerated the anesthesia and procedure well and was escorted to the recovery room with vital signs stable and neurovascular status intact to the Right foot. Patient will go back to hospital floor for further treatment of osteomyelitis. Patient will follow up with Dr. Ferreira upon discharge in the future.
[2017-12-03] MEDS: Piperacill/Tazo 3.375gm in Dex 3.375 GM/50 ML BAG IVPB SCH ×3 (00:15→16:41)
[2017-12-03] MEDS: Tramadol 25 mg PO PRN ×2 (06:05→21:52)
--- NOTE | 2017-12-03 07:17 | CP.PCM.PN ---
Subjective - Date & Time of Evaluation Date of Evaluation: 12/03/17 Time of Evaluation: 15:58 - Subjective Subjective: PGY2 progress note for Dr. Wagner's service Patient seen and examined at bedside. Pt POD#1 s/p right foot wound debridement and partial ostectomy of 1st metatarsal and proximal phalanx with Dr. Ferreira. Nursing reports there is no return from PICC line. Pt admits pain is well controlled at this time. Patient denies of any fever, chills, abdominal pain, N/ V, or SOB today. Objective - Vital Signs/Intake and Output Vital Signs (last 24 hours): Temp Pulse Resp BP Pulse Ox 98.8 F 87 20 133/71 97 12/03/17 06:00 12/03/17 00:00 12/03/17 00:00 12/03/17 00:00 12/03/17 00:00 Intake and Output: 12/03/17 12/03/17 06:59 18:59 Intake Total 450 Balance 450 - Medications Medications: Current Medications Acetaminophen (Tylenol 325mg Tab) 650 mg PO Q8 PRN PRN Reason: Pain, Mild (1-3) Last Admin: 12/03/17 03:10 Dose: 650 mg Albuterol (Ventolin Hfa 90 Mcg/Actuation (8 G)) 2 puff IH RQ6 PRN PRN Reason: Wheezing Amlodipine Besylate (Norvasc) 10 mg PO DAILY [facility] Last Admin: 12/02/17 10:36 Dose: 10 mg Dextrose (Dextrose 50% Inj) 0 ml IVP .STAT PRN; Protocol PRN Reason: Hypoglycemia Protocol Dextrose (Glutose 15) 0 gm PO .ONCE PRN; Protocol PRN Reason: Hypoglycemia Protocol Famotidine (Pepcid) 20 mg PO DAILY [facility] Last Admin: 12/02/17 10:36 Dose: 20 mg Furosemide (Lasix) 40 mg PO DAILY [facility] Last Admin: 12/02/17 10:36 Dose: 40 mg Glucagon (Glucagen Diagnostic Kit) 0 mg IM .STAT PRN; Protocol PRN Reason: Hypoglycemia Protocol Heparin Sodium (Porcine) (Heparin) 5,000 units SC Q12 [facility] Last Admin: 12/02/17 22:10 Dose: 5,000 units Hydromorphone HCl (Dilaudid) 0.5 mg IVP Q4H PRN PRN Reason: Pain, severe (8-10) Piperacillin Sod/Tazobactam Sod (Zosyn 3.375 Gm Iv Premix) 3.375 gm in 50 mls @ 100 mls/hr IVPB Q8H [facility] PRN Reason: Protocol Last Admin: 12/03/17 00:15 Dose: 100 mls/hr Vancomycin/Sodium Chloride (Vancomycin 1 Gm/Ns 200 Ml) 1 gm in 200 mls @ 133.333 mls/hr IVPB Q12H [facility] PRN Reason: Protocol Stop: 12/06/17 11:01 Last Admin: 12/02/17 22:09 Dose: 133.333 mls/hr Dextrose (Dextrose 5% In Water 1000 Ml) 1,000 mls @ 0 mls/hr IV .Q0M PRN; Protocol; Per Protocol PRN Reason: Hypoglycemia Protocol Insulin Aspart (Novolog) 0 unit SC ACHS [facility] PRN Reason: Protocol Last Admin: 12/02/17 22:08 Dose: Not Given Insulin Detemir (Levemir) 15 unit SC Q12 [facility] Last Admin: 12/02/17 22:10 Dose: 15 unit Levetiracetam (Keppra) 500 mg PO BID [facility] Last Admin: 12/02/17 17:25 Dose: 500 mg Losartan Potassium (Cozaar) 100 mg PO DAILY [facility] Last Admin: 12/02/17 10:36 Dose: 100 mg Metformin HCl (Glucophage) 1,000 mg PO BID [facility] Last Admin: 12/02/17 17:25 Dose: 1,000 mg Polyethylene Glycol (Miralax) 17 gm PO DAILY [facility] Last Admin: 12/02/17 10:40 Dose: 17 gm Rosuvastatin Calcium (Crestor) 10 mg PO DAILY [facility] Last Admin: 12/02/17 10:36 Dose: 10 mg Tramadol HCl (Ultram) 25 mg PO TID PRN PRN Reason: Pain, moderate (4-7) Last Admin: 12/03/17 06:05 Dose: 25 mg - Labs Labs: 12/02/17 05:27 12/02/17 05:27 PT 11.6 SECONDS (9.7-12.2) 12/01/17 06:57 INR 1.0 12/01/17 06:57 - Additional Findings Additional findings: - Constitutional Appears: No Acute Distress - Head Exam Head Exam: ATRAUMATIC, NORMOCEPHALIC - Eye Exam Eye Exam: EOMI - ENT Exam ENT Exam: Mucous Membranes Moist - Respiratory Exam Respiratory Exam: Clear to Ausculation Bilateral - Cardiovascular Exam Cardiovascular Exam: +S1, +S2 - GI/Abdominal Exam GI & Abdominal Exam: Soft - Extremities Exam Additional comments: PICC line placed - no return right foot wrapped, patient able to move toes, sensation intact - Neurological Exam Neurological Exam: Alert, Awake - Psychiatric Exam Psychiatric exam: Normal Affect - Skin Skin Exam: Warm Assessment and Plan - Assessment and Plan (Free Text) Plan: Osteomyelitis of R Foot -12/03: POD #1, Podiatry reccs for Weight bearing to heel as tolerated PICC line flushed with Cath-Steven, now with blood return -12/02: Patient s/p right foot wound debridement and partial ostectomy of 1st metatarsal and proximal phalanx with Dr. Ferreira Gram stain/ culture of tissue sample from OR pending Continue zosyn 3.375g Q8h and Vancomycin 1g q12h 6-[address] Deleon -11/28: patient with PICC -11/26: Afebrile. WBC 7.6. Patient did not receive last dose of Vanco 2/2 difficult needle stick (lost line). Awaiting PICC placement. MRI R Forefoot 11/25/17 - 2nd distal phalynx osteomyelitis; R foot cellulitis; 1st proximal phalynx soft tissue ulceration. see full report. Patient did not receive last dose of Vanco 2/2 difficult needle stick. She is awaiting placement of PICC line. Wound culture positive for - Corynebacterium (prelim) ID Consult, Dr. Deleon, f/u recs. Hypertension controlled, continue current regimen Norvasc 10 mg PO DAILY [facility] Lasix 40 mg PO DAILY [facility] Cozaar 100 mg PO DAILY [facility] HLD Crestor 10 mg PO DAILY [facility] Diabetes 12/03/17: Levemir increased to 20u Q12H. 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 All medical management as per Dr. Sean Wagner.
[2017-12-03 07:38] LABS: BASO # 0.1 K/uL (0.0-0.2); BASO % 0.6 % (0.0-2.0); EOS # 0.1 K/uL (0.0-0.7); EOS % 0.6 % (0.0-4.0); HEMOGLOBIN 9.9 g/dL (11.0-16.0); LYMPH % 22.5 % (20.0-40.0); MEAN CELL VOLUME 85.4 fL (81.0-99.0); MEAN CORPUSCULAR HEMOGLOBIN 28.6 pg (27.0-31.0); MEAN CORPUSCULAR HGB CONC 33.5 g/dL (33.0-37.0); MEAN PLATELET VOLUME 8.2 fL (7.2-11.7); MONO # 0.7 K/uL (0.0-0.8); MONO % 8.4 % (0.0-10.0); NEUT % 67.9 % (50.0-75.0); RBC 3.45 Mil/uL (3.80-5.20); RED CELL DISTRIBUTION WIDTH 14.6 % (11.5-14.5); WHITE BLOOD COUNT 8.8 K/uL (4.8-10.8)
[2017-12-03 07:51] LABS: ALB/GLOB RATIO 0.9 (1.0-2.1); ALBUMIN 3.5 g/dL (3.5-5.0); ALT/SGPT 21 U/L (9-52); AST/SGOT 25 U/L (14-36); BLOOD UREA NITROGEN 12 mg/dL (7-17); CALCIUM 8.7 mg/dl (8.6-10.4); GFR AFRICAN-AMERICAN > 60; GFR NON-AFRICAN AMERICAN 59
[2017-12-03] MEDS: (Novolog) Insulin Aspart, Recombinant 100 u/ml 10 ml vial SC SCH ×4 (08:13→21:42)
[2017-12-03] MEDS: Magnesium Sulfate 1 gm in D5W 1 GM/100 ML BAG IVPB SCH ×2 (09:30→10:30)
[2017-12-03] MEDS: POLYETHYLENE GLYCOL 3350 17 GM/Dose PACKET PO SCH (09:54)
[2017-12-03] MEDS: Insulin Detemir 100 units/ml Vial (Levemir) SC SCH ×2 (09:55→21:39)
[2017-12-03] MEDS: Vancomycin 1 gm/NS 200 ml 1 GM/200 ML BAG IVPB SCH ×2 (11:30→22:15)
--- NOTE | 2017-12-03 12:26 | CARD ---
APPROVED REPORT EKG Measurement Heart [id number] <Conclusion> Normal sinus rhythm Possible Anterior infarct, age undetermined Abnormal ECG
--- NOTE | 2017-12-03 12:58 | CP.PCM.PN ---
Subjective - Date & Time of Evaluation Date of Evaluation: 12/03/17 Time of Evaluation: 11:56 - Subjective Subjective: Podiatry note for Dr. Ferreira 47 year old female patient 1 day s/p Right foot partial resection of 1st metatarsal was seen at bedside this morning concerning. Patient is resting comfortably in bed AAO x3. NAD. Dressing to right foot remains c/d/i. Patient admits to mild pain to the surgical site. Patient Patient denies of any N/V/F/C or SOB today. Patient was advised to keep the dressing clean dry and intact at all times Objective - Vital Signs/Intake and Output Vital Signs (last 24 hours): Temp Pulse Resp BP Pulse Ox 98.4 F 77 20 123/73 97 12/03/17 08:12 12/03/17 08:12 12/03/17 08:12 12/03/17 09:54 12/03/17 08:12 Intake and Output: 12/03/17 12/03/17 06:59 18:59 Intake Total 450 Balance 450 - Medications Medications: Current Medications Acetaminophen (Tylenol 325mg Tab) 650 mg PO Q8 PRN PRN Reason: Pain, Mild (1-3) Last Admin: 12/03/17 03:10 Dose: 650 mg Albuterol (Ventolin Hfa 90 Mcg/Actuation (8 G)) 2 puff IH RQ6 PRN PRN Reason: Wheezing Amlodipine Besylate (Norvasc) 10 mg PO DAILY [facility] Last Admin: 12/03/17 09:54 Dose: 10 mg Dextrose (Dextrose 50% Inj) 0 ml IVP .STAT PRN; Protocol PRN Reason: Hypoglycemia Protocol Dextrose (Glutose 15) 0 gm PO .ONCE PRN; Protocol PRN Reason: Hypoglycemia Protocol Famotidine (Pepcid) 20 mg PO DAILY [facility] Last Admin: 12/03/17 09:54 Dose: 20 mg Furosemide (Lasix) 40 mg PO DAILY [facility] Last Admin: 12/03/17 09:54 Dose: 40 mg Glucagon (Glucagen Diagnostic Kit) 0 mg IM .STAT PRN; Protocol PRN Reason: Hypoglycemia Protocol Heparin Sodium (Porcine) (Heparin) 5,000 units SC Q12 [facility] Last Admin: 12/03/17 09:55 Dose: 5,000 units Hydromorphone HCl (Dilaudid) 0.5 mg IVP Q4H PRN PRN Reason: Pain, severe (8-10) Piperacillin Sod/Tazobactam Sod (Zosyn 3.375 Gm Iv Premix) 3.375 gm in 50 mls @ 100 mls/hr IVPB Q8H [facility] PRN Reason: Protocol Last Admin: 12/03/17 09:56 Dose: 100 mls/hr Vancomycin/Sodium Chloride (Vancomycin 1 Gm/Ns 200 Ml) 1 gm in 200 mls @ 133.333 mls/hr IVPB Q12H [facility] PRN Reason: Protocol Stop: 12/06/17 11:01 Last Admin: 12/03/17 11:30 Dose: 133.333 mls/hr Dextrose (Dextrose 5% In Water 1000 Ml) 1,000 mls @ 0 mls/hr IV .Q0M PRN; Protocol; Per Protocol PRN Reason: Hypoglycemia Protocol Insulin Aspart (Novolog) 0 unit SC ACHS [facility] PRN Reason: Protocol Last Admin: 12/03/17 12:07 Dose: 4 unit Insulin Detemir (Levemir) 15 unit SC Q12 [facility] Last Admin: 12/03/17 09:55 Dose: 15 unit Levetiracetam (Keppra) 500 mg PO BID [facility] Last Admin: 12/03/17 09:56 Dose: 500 mg Losartan Potassium (Cozaar) 100 mg PO DAILY [facility] Last Admin: 12/03/17 09:55 Dose: 100 mg Metformin HCl (Glucophage) 1,000 mg PO BID [facility] Last Admin: 12/03/17 09:55 Dose: 1,000 mg Polyethylene Glycol (Miralax) 17 gm PO DAILY [facility] Last Admin: 12/03/17 09:54 Dose: 17 gm Rosuvastatin Calcium (Crestor) 10 mg PO DAILY [facility] Last Admin: 12/03/17 09:55 Dose: 10 mg Tramadol HCl (Ultram) 25 mg PO TID PRN PRN Reason: Pain, moderate (4-7) Last Admin: 12/03/17 06:05 Dose: 25 mg - Labs Labs: 12/03/17 07:22 12/03/17 07:22 PT 11.6 SECONDS (9.7-12.2) 12/01/17 06:57 INR 1.0 12/01/17 06:57 - Constitutional Appears: Well, Non-toxic, No Acute Distress - Head Exam Head Exam: ATRAUMATIC - Extremities Exam Additional comments: Right lower extremity exam DERM: Open wound noted to medial aspect of right 1st MTPJ measuring 3m x 3cm x 0.3cm with mostly fibrotic base. no drainage is noted from the wound. No purulent discharge noted. Wound margins appears slightly necrotic with dark discolorations, not dried blood. No mal-odor present. ORTHO: Mild pain on palpation in passive ROM to joints distal to ankle bilaterally VASC: Non-palpable DP and PT noteded bilaterally. MANAGER WATER WASTEWATER less than 3 seconds to all digits NEURO: Gross sensation intact - Neurological Exam Neurological Exam: Alert, Awake, Oriented x3 - Psychiatric Exam Psychiatric exam: Normal Affect, Normal Mood Assessment and Plan - Assessment and Plan (Free Text) Assessment: 47 yo female patient presenting right foot cellulitis and chronic superficial ulceration to right 1st MTPJ Plan: Patient was seen, evaluated by bedside discussed in detail with attending Dr. Ferreira Labs and Vitals reviewed Right foot dressed with DSD Surgical shoe ordered, Weight bearing to heel as tolerated Continue IV Abx Podiatry will continue to follow in house
--- NOTE | 2017-12-03 15:35 | CP.PCM.PN ---
Subjective - Date & Time of Evaluation Date of Evaluation: 12/03/17 Time of Evaluation: 08:00 - Subjective Subjective: 47 year old female patient 1 day s/p Right foot partial resection of 1st metatarsal appears comfortable and afebrile wound clean and dry Objective - Vital Signs/Intake and Output Vital Signs (last 24 hours): Temp Pulse Resp BP Pulse Ox 98.4 F 77 20 123/73 97 12/03/17 08:12 12/03/17 08:12 12/03/17 08:12 12/03/17 09:54 12/03/17 08:12 Intake and Output: 12/03/17 12/03/17 06:59 18:59 Intake Total 450 950 Balance 450 950 - Medications Medications: Current Medications Acetaminophen (Tylenol 325mg Tab) 650 mg PO Q8 PRN PRN Reason: Pain, Mild (1-3) Last Admin: 12/03/17 03:10 Dose: 650 mg Albuterol (Ventolin Hfa 90 Mcg/Actuation (8 G)) 2 puff IH RQ6 PRN PRN Reason: Wheezing Amlodipine Besylate (Norvasc) 10 mg PO DAILY [facility] Last Admin: 12/03/17 09:54 Dose: 10 mg Dextrose (Dextrose 50% Inj) 0 ml IVP .STAT PRN; Protocol PRN Reason: Hypoglycemia Protocol Dextrose (Glutose 15) 0 gm PO .ONCE PRN; Protocol PRN Reason: Hypoglycemia Protocol Famotidine (Pepcid) 20 mg PO DAILY [facility] Last Admin: 12/03/17 09:54 Dose: 20 mg Furosemide (Lasix) 40 mg PO DAILY [facility] Last Admin: 12/03/17 09:54 Dose: 40 mg Glucagon (Glucagen Diagnostic Kit) 0 mg IM .STAT PRN; Protocol PRN Reason: Hypoglycemia Protocol Heparin Sodium (Porcine) (Heparin) 5,000 units SC Q12 [facility] Last Admin: 12/03/17 09:55 Dose: 5,000 units Hydromorphone HCl (Dilaudid) 0.5 mg IVP Q4H PRN PRN Reason: Pain, severe (8-10) Piperacillin Sod/Tazobactam Sod (Zosyn 3.375 Gm Iv Premix) 3.375 gm in 50 mls @ 100 mls/hr IVPB Q8H [facility] PRN Reason: Protocol Last Admin: 12/03/17 09:56 Dose: 100 mls/hr Vancomycin/Sodium Chloride (Vancomycin 1 Gm/Ns 200 Ml) 1 gm in 200 mls @ 133.333 mls/hr IVPB Q12H [facility] PRN Reason: Protocol Stop: 12/06/17 11:01 Last Admin: 12/03/17 11:30 Dose: 133.333 mls/hr Dextrose (Dextrose 5% In Water 1000 Ml) 1,000 mls @ 0 mls/hr IV .Q0M PRN; Protocol; Per Protocol PRN Reason: Hypoglycemia Protocol Insulin Aspart (Novolog) 0 unit SC ACHS [facility] PRN Reason: Protocol Last Admin: 12/03/17 12:07 Dose: 4 unit Insulin Detemir (Levemir) 15 unit SC Q12 [facility] Last Admin: 12/03/17 09:55 Dose: 15 unit Levetiracetam (Keppra) 500 mg PO BID [facility] Last Admin: 12/03/17 09:56 Dose: 500 mg Losartan Potassium (Cozaar) 100 mg PO DAILY [facility] Last Admin: 12/03/17 09:55 Dose: 100 mg Metformin HCl (Glucophage) 1,000 mg PO BID [facility] Last Admin: 12/03/17 09:55 Dose: 1,000 mg Polyethylene Glycol (Miralax) 17 gm PO DAILY [facility] Last Admin: 12/03/17 09:54 Dose: 17 gm Rosuvastatin Calcium (Crestor) 10 mg PO DAILY [facility] Last Admin: 12/03/17 09:55 Dose: 10 mg Tramadol HCl (Ultram) 25 mg PO TID PRN PRN Reason: Pain, moderate (4-7) Last Admin: 12/03/17 06:05 Dose: 25 mg - Labs Labs: 12/03/17 07:22 12/03/17 07:22 PT 11.6 SECONDS (9.7-12.2) 12/01/17 06:57 INR 1.0 12/01/17 06:57 - Constitutional Appears: Non-toxic, Chronically Ill - Head Exam Head Exam: NORMOCEPHALIC - Eye Exam Eye Exam: PERRL - ENT Exam ENT Exam: Mucous Membranes Dry - Neck Exam Neck Exam: absent: Lymphadenopathy - Respiratory Exam Respiratory Exam: Decreased Breath Sounds - Cardiovascular Exam Cardiovascular Exam: REGULAR RHYTHM, +S1, +S2 - GI/Abdominal Exam GI & Abdominal Exam: Distended, Soft. absent: Tenderness - Rectal Exam Rectal Exam: Deferred - Exam Exam: NORMAL INSPECTION - Extremities Exam Extremities Exam: absent: Pedal Edema - Neurological Exam Neurological Exam: Alert, Awake, Oriented x3 - Psychiatric Exam Psychiatric exam: Normal Mood - Skin Skin Exam: Dry Assessment and Plan - Assessment and Plan (Free Text) Plan: 47 year old female patient 1 day s/p Right foot partial resection of 1st metatarsal will need 6 weeks iv rx
[2017-12-04] MEDS: Piperacill/Tazo 3.375gm in Dex 3.375 GM/50 ML BAG IVPB SCH ×2 (00:25→08:16)
[2017-12-04 00:44] VITALS: RESP 20; O2SAT 97
[2017-12-04] MEDS: Tramadol 25 mg PO PRN (06:20)
[2017-12-04 07:25] LABS: BASO # 0.1 K/uL (0.0-0.2); BASO % 0.8 % (0.0-2.0); EOS # 0.1 K/uL (0.0-0.7); EOS % 0.8 % (0.0-4.0); HEMOGLOBIN 9.4 g/dL (11.0-16.0); LYMPH # 2.1 K/uL (1.0-4.3); LYMPH % 27.2 % (20.0-40.0); MEAN CELL VOLUME 85.1 fL (81.0-99.0); MEAN CORPUSCULAR HEMOGLOBIN 28.6 pg (27.0-31.0); MEAN CORPUSCULAR HGB CONC 33.6 g/dL (33.0-37.0); MEAN PLATELET VOLUME 8.4 fL (7.2-11.7); MONO # 0.7 K/uL (0.0-0.8); NEUT # 4.8 K/uL (1.8-7.0); NEUT % 62.2 % (50.0-75.0); NRBC % 0.1 % (0.0-2.0); RBC 3.3 Mil/uL (3.80-5.20); RED CELL DISTRIBUTION WIDTH 14.6 % (11.5-14.5); WHITE BLOOD COUNT 7.6 K/uL (4.8-10.8)
[2017-12-04 07:42] LABS: ALB/GLOB RATIO 0.8 (1.0-2.1); ALBUMIN 3.3 g/dL (3.5-5.0); ALT/SGPT 16 U/L (9-52); AST/SGOT 18 U/L (14-36); BLOOD UREA NITROGEN 9 mg/dL (7-17); CALCIUM 8.4 mg/dl (8.6-10.4); GFR AFRICAN-AMERICAN > 60; GFR NON-AFRICAN AMERICAN 53
[2017-12-04] MEDS: (Novolog) Insulin Aspart, Recombinant 100 u/ml 10 ml vial SC SCH ×3 (08:14→17:10)
[2017-12-04 08:26] LABS: ALBUMIN (PEP) 3.3 g/dL (3.8-4.8); ALPHA-1-GLOBULIN (PEP) 0.3 g/dL (0.2-0.3)
[2017-12-04] MEDS ORDERED: Potassium Chloride 20 mEq ER Tab PO ONE ×2 (09:12→11:00)
[2017-12-04] MEDS: Insulin Detemir 100 units/ml Vial (Levemir) SC SCH (10:49)
[2017-12-04] MEDS: POLYETHYLENE GLYCOL 3350 17 GM/Dose PACKET PO SCH ×2 (10:55→11:00)
[2017-12-04] MEDS: Vancomycin 1 gm/NS 200 ml 1 GM/200 ML BAG IVPB SCH (11:27)
[2017-12-04] MEDS ORDERED: cefTRIAXone 2 GM in Sodium Chloride 0.9% 100 ML IVPB SCH (12:30)
--- NOTE | 2017-12-04 12:31 | CP.PCM.PN ---
Subjective - Date & Time of Evaluation Date of Evaluation: 12/04/17 Time of Evaluation: 11:25 - Subjective Subjective: Podiatry note for Dr. Ferreira 47 year old female patient 2 days s/p Right foot partial resection of 1st metatarsal was seen at bedside this morning with attending Dr. Ferreira. MAHESH x3. NAD. Dressing to right foot remains c/d/i. Patient was advised to keep the dressing clean dry and intact at all times. Patient Patient denies of any N/V/F/ C or SOB today. Objective - Vital Signs/Intake and Output Vital Signs (last 24 hours): Temp Pulse Resp BP Pulse Ox 98.5 F 89 20 130/70 97 12/04/17 08:38 12/04/17 08:38 12/04/17 08:38 12/04/17 10:40 12/04/17 08:38 Intake and Output: 12/04/17 12/04/17 06:59 18:59 Intake Total 350 Balance 350 - Medications Medications: Current Medications Acetaminophen (Tylenol 325mg Tab) 650 mg PO Q8 PRN PRN Reason: Pain, Mild (1-3) Last Admin: 12/03/17 03:10 Dose: 650 mg Albuterol (Ventolin Hfa 90 Mcg/Actuation (8 G)) 2 puff IH RQ6 PRN PRN Reason: Wheezing Amlodipine Besylate (Norvasc) 10 mg PO DAILY [facility] Last Admin: 12/04/17 10:40 Dose: 10 mg Dextrose (Dextrose 50% Inj) 0 ml IVP .STAT PRN; Protocol PRN Reason: Hypoglycemia Protocol Dextrose (Glutose 15) 0 gm PO .ONCE PRN; Protocol PRN Reason: Hypoglycemia Protocol Famotidine (Pepcid) 20 mg PO DAILY [facility] Last Admin: 12/04/17 10:40 Dose: 20 mg Furosemide (Lasix) 40 mg PO DAILY [facility] Last Admin: 12/04/17 10:40 Dose: 40 mg Glucagon (Glucagen Diagnostic Kit) 0 mg IM .STAT PRN; Protocol PRN Reason: Hypoglycemia Protocol Heparin Sodium (Porcine) (Heparin) 5,000 units SC Q12 [facility] Last Admin: 12/04/17 10:49 Dose: 5,000 units Hydromorphone HCl (Dilaudid) 0.5 mg IVP Q4H PRN PRN Reason: Pain, severe (8-10) Dextrose (Dextrose 5% In Water 1000 Ml) 1,000 mls @ 0 mls/hr IV .Q0M PRN; Protocol; Per Protocol PRN Reason: Hypoglycemia Protocol Ceftriaxone Sodium 2 gm/ (Sodium Chloride) 100 mls @ 100 mls/hr IVPB Q24H [facility] PRN Reason: Protocol Insulin Aspart (Novolog) 0 unit SC ACHS [facility] PRN Reason: Protocol Last Admin: 12/04/17 12:21 Dose: 6 unit Insulin Detemir (Levemir) 20 unit SC Q12 [facility] Last Admin: 12/04/17 10:49 Dose: 20 unit Levetiracetam (Keppra) 500 mg PO BID [facility] Last Admin: 12/04/17 10:40 Dose: 500 mg Losartan Potassium (Cozaar) 100 mg PO DAILY [facility] Last Admin: 12/04/17 11:00 Dose: 100 mg Metformin HCl (Glucophage) 1,000 mg PO BID [facility] Last Admin: 12/04/17 10:40 Dose: 1,000 mg Polyethylene Glycol (Miralax) 17 gm PO DAILY [facility] Last Admin: 12/04/17 11:00 Dose: Not Given Rosuvastatin Calcium (Crestor) 10 mg PO DAILY [facility] Last Admin: 12/04/17 10:40 Dose: 10 mg Tramadol HCl (Ultram) 25 mg PO TID PRN PRN Reason: Pain, moderate (4-7) Last Admin: 12/04/17 06:20 Dose: 25 mg - Labs Labs: 12/04/17 07:10 12/04/17 07:10 PT 11.6 SECONDS (9.7-12.2) 12/01/17 06:57 INR 1.0 12/01/17 06:57 - Constitutional Appears: Well, Non-toxic, No Acute Distress - Head Exam Head Exam: ATRAUMATIC - Extremities Exam Additional comments: Right lower extremity exam DERM: Open wound noted to medial aspect of right 1st MTPJ measuring 3m x 3cm x 0.3cm with mostly fibrotic base. no drainage is noted from the wound. No purulent discharge noted. Wound margins appears slightly necrotic with dark discolorations, not dried blood. No mal-odor present. ORTHO: Mild pain on palpation in passive ROM to joints distal to ankle bilaterally VASC: Non-palpable DP and PT noteded bilaterally. 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 Ferreira Labs and Vitals reviewed; WBC 7.6 Right foot dressed with Betadine, DSD, Coban, SUSAN Weight bearing to heel as tolerated Patient is stable from podiatry stand point Once discharged, visiting home nurse can apply Silvercell, DSD, Friday, , . Patient will follow up with Dr. Ferreira on Friday Dr. Ferreira will prescribe pain medication and antibiotic medication from his office Today electronically to her pharmacy [id number] PO BID Keflex 500 PO TID
--- NOTE | 2017-12-04 14:46 | CP.PCM.PN ---
Subjective - Date & Time of Evaluation Date of Evaluation: 12/04/17 Time of Evaluation: 09:45 - Subjective Subjective: Medicine progress note for Dr. Wagner's service Patient seen and examined. Patient states her pain is well-controlled. She is working with physical therapy. She reports good appetite and normal bowel movements. Patient eager for discharge home as she has 4 year old son. Objective - Vital Signs/Intake and Output Vital Signs (last 24 hours): Temp Pulse Resp BP Pulse Ox 98.5 F 89 20 130/70 97 12/04/17 08:38 12/04/17 08:38 12/04/17 08:38 12/04/17 10:40 12/04/17 08:38 Intake and Output: 12/04/17 12/04/17 06:59 18:59 Intake Total 350 Balance 350 - Medications Medications: Current Medications Acetaminophen (Tylenol 325mg Tab) 650 mg PO Q8 PRN PRN Reason: Pain, Mild (1-3) Last Admin: 12/03/17 03:10 Dose: 650 mg Albuterol (Ventolin Hfa 90 Mcg/Actuation (8 G)) 2 puff IH RQ6 PRN PRN Reason: Wheezing Amlodipine Besylate (Norvasc) 10 mg PO DAILY [facility] Last Admin: 12/04/17 10:40 Dose: 10 mg Dextrose (Dextrose 50% Inj) 0 ml IVP .STAT PRN; Protocol PRN Reason: Hypoglycemia Protocol Dextrose (Glutose 15) 0 gm PO .ONCE PRN; Protocol PRN Reason: Hypoglycemia Protocol Famotidine (Pepcid) 20 mg PO DAILY [facility] Last Admin: 12/04/17 10:40 Dose: 20 mg Furosemide (Lasix) 40 mg PO DAILY [facility] Last Admin: 12/04/17 10:40 Dose: 40 mg Glucagon (Glucagen Diagnostic Kit) 0 mg IM .STAT PRN; Protocol PRN Reason: Hypoglycemia Protocol Heparin Sodium (Porcine) (Heparin) 5,000 units SC Q12 [facility] Last Admin: 12/04/17 10:49 Dose: 5,000 units Hydromorphone HCl (Dilaudid) 0.5 mg IVP Q4H PRN PRN Reason: Pain, severe (8-10) Dextrose (Dextrose 5% In Water 1000 Ml) 1,000 mls @ 0 mls/hr IV .Q0M PRN; Protocol; Per Protocol PRN Reason: Hypoglycemia Protocol Ceftriaxone Sodium 2 gm/ (Sodium Chloride) 100 mls @ 100 mls/hr IVPB Q24H [facility] PRN Reason: Protocol Last Admin: 12/04/17 12:32 Dose: 100 mls/hr Insulin Aspart (Novolog) 0 unit SC ACHS [facility] PRN Reason: Protocol Last Admin: 12/04/17 12:21 Dose: 6 unit Insulin Detemir (Levemir) 20 unit SC Q12 [facility] Last Admin: 12/04/17 10:49 Dose: 20 unit Levetiracetam (Keppra) 500 mg PO BID [facility] Last Admin: 12/04/17 10:40 Dose: 500 mg Losartan Potassium (Cozaar) 100 mg PO DAILY [facility] Last Admin: 12/04/17 11:00 Dose: 100 mg Metformin HCl (Glucophage) 1,000 mg PO BID [facility] Last Admin: 12/04/17 10:40 Dose: 1,000 mg Polyethylene Glycol (Miralax) 17 gm PO DAILY [facility] Last Admin: 12/04/17 11:00 Dose: Not Given Rosuvastatin Calcium (Crestor) 10 mg PO DAILY [facility] Last Admin: 12/04/17 10:40 Dose: 10 mg Tramadol HCl (Ultram) 25 mg PO TID PRN PRN Reason: Pain, moderate (4-7) Last Admin: 12/04/17 06:20 Dose: 25 mg - Labs Labs: 12/04/17 07:10 12/04/17 07:10 PT 11.6 SECONDS (9.7-12.2) 12/01/17 06:57 INR 1.0 12/01/17 06:57 - Constitutional Appears: No Acute Distress - Head Exam Head Exam: ATRAUMATIC, NORMOCEPHALIC - Eye Exam Eye Exam: EOMI, Normal appearance - ENT Exam ENT Exam: Mucous Membranes Moist - Respiratory Exam Respiratory Exam: Clear to Ausculation Bilateral, NORMAL BREATHING PATTERN - Cardiovascular Exam Cardiovascular Exam: +S1, +S2 - GI/Abdominal Exam GI & Abdominal Exam: Soft, Normal Bowel Sounds. absent: Tenderness - Extremities Exam Additional comments: left upper arm with PICC line right foot wrapped, surgical shoe applied, sensation intact to toes, patient able to move toes chronic lymphedema right leg - Neurological Exam Neurological Exam: Alert, Awake - Psychiatric Exam Psychiatric exam: Normal Affect - Skin Skin Exam: Warm Assessment and Plan - Assessment and Plan (Free Text) Assessment: Osteomyelitis of R Foot -15: POD #2, patient to be discharged home with home care services. Per ID, patient to be on 2g Rocephin IV for 6 weeks as OR culture prelim gram positive cocci and prior wound culture from 11/24/17 positive for beta hemolytic strep. Pain medication was prescribed electronically by Dr. Ferreira to patient's home pharmacy. -12/03: POD #1, Podiatry recs for Weight bearing to heel as tolerated PICC line flushed with Cath-Steven, now with blood return -12/02: Patient s/p right foot wound debridement and partial ostectomy of 1st metatarsal and proximal phalanx with Dr. Ferreira Gram stain/ culture of tissue sample from OR pending Continue zosyn 3.375g Q8h and Vancomycin 1g q12h 6-[address] Deleon -11/28: PICC line placed -11/26: Afebrile. WBC 7.6. Patient did not receive last dose of Vanco 2/2 difficult needle stick (lost line). Awaiting PICC placement. MRI R Forefoot 11/25/17 - 2nd distal phalynx osteomyelitis; R foot cellulitis; 1st proximal phalynx soft tissue ulceration. see full report. Patient did not receive last dose of Vanco 2/2 difficult needle stick. She is awaiting placement of PICC line. Wound culture positive for - Corynebacterium (prelim) ID Consult, Dr. Deleon, f/u recs. Hypertension controlled, continue current regimen Norvasc 10 mg PO DAILY [facility] Lasix 40 mg PO DAILY [facility] Cozaar 100 mg PO DAILY [facility] HLD Crestor 10 mg PO DAILY [facility] Diabetes Levemir 20u Q12H. 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 All medical management as per Dr. Sean Wagner. Patient is stable for discharge home with home care services, per Dr. Wagner. Patient will be given prescriptions for home infusion of Rocephin 2g daily for 6 weeks. She should follow up with her PMD within one week of discharge. Patient will need to follow up with Dr. Ferreira within one week of discharge for evaluation of her foot wound. She should resume her diabetic home medications including metformin 1000mg BID and Levemir 20u Q12h. Patient given prescription for glucometer, diabetic test strips, lancets. She will be given new prescription for Miralax. Patient will need home care services: home physical therapy and home infusion of IV antibiotics. If symptoms return or worsen patient should go immediately to the nearest emergency department. Patient verbalized her agreement to these instructions. Per podiatry recommendations: Once discharged, visiting home nurse can apply FORTINO Craft, Friday, , . Patient will follow up with Dr. Ferreira on Friday
[2017-12-04 16:52] VITALS: BP 119/70; PULSE 83; TEMP 98.1
--- NOTE | 2017-12-05 08:47 | PQF DEBRID ---
To Arpit Ferreira MD, Patient was admitted with Pain on right leg. History of DM 2. \ HTN, HLD, Found to have cellulitis of right leg, Osteomyelitis, hallux rigidus. Procedure was performed Please Clarify if DEBRIDEMENT was EXCISIONAL or non non EXCISIONAL. Please provide the name of the Procedures Thank you. This form is a permanent part of the medical record Clarification of your documentation is requested to better reflect the severity of illness and intensity of treatment of your patient. Indicators present [] Documentation of wound care / debridement [] Technique: [] [] Instrument used:[] [] Nature of Tissue Removed:[] [] Appearance of Wound:[] [] Size of Wound: [] [] Depth of Debridement: [] [] Other: [] Location in the medical record that reflects the above clinical findings: [] Other Treatment Provided: [] PHYSICIAN'S RESPONSE Based on your medical judgment, can you further clarify the precise NATURE, DEPTH, EXTENT and / or METHODS of wound debridement utilized in this case: [] EXCISIONAL debridement use of a scalpel / blade to cut away tissue Depth (subcutaneous, fascia, muscle, soft tissue and bone) [] Size of Wound [] NON-EXCISIONAL debridement chemical, scrubbing, trimming with a scissor/ versajet [] Other, please indicate: [] [] If unable to determine, please check the box, sign and date. In responding to this query, please exercise your independent professional judgment. The fact that a question is asked does not imply that any particular answer is desired or expected. Thank you for your clarification on this documentation. If you have any questions please call:[ ] * Thank you, [ Arina aponte> ISHA Oneill] photo journalist NILSA
== END 2017-12-04 18:48 | disposition home or self-care (01) | DRG 629 ==
LOC: C.ER 10:32 → C.9E 13:29 → C.3T 18:50
PROVIDERS: ADMIT Internal Medicine Pulmonary Disease; ATTEND Internal Medicine Pulmonary Disease
PROC: 0QSN04Z Reposition Right Metatarsal with Internal Fixation Device, Open Approach (ICD-10-PCS; 2017-12-02)
PROC: 0QBQ0ZZ Excision of Right Toe Phalanx, Open Approach (ICD-10-PCS; principal; 2017-12-02 07:30)
DX: E11.69 Type 2 diabetes mellitus with other specified complication (principal); M86.171 Other acute osteomyelitis, right ankle and foot; E11.621 Type 2 diabetes mellitus with foot ulcer; E11.40 Type 2 diabetes mellitus with diabetic neuropathy, unspecified; L03.115 Cellulitis of right lower limb; M86.9 Osteomyelitis, unspecified; E83.42 Hypomagnesemia; I10 Essential (primary) hypertension; E78.00 Pure hypercholesterolemia, unspecified; I89.0 Lymphedema, not elsewhere classified; Z79.4 Long term (current) use of insulin; E66.9 Obesity, unspecified; Z68.36 Body mass index [BMI] 36.0-36.9, adult; L97.519 Non-pressure chronic ulcer of other part of right foot with unspecified severity; M20.21 Hallux rigidus, right foot; K21.9 Gastro-esophageal reflux disease without esophagitis; D64.9 Anemia, unspecified; E87.6 Hypokalemia; B97.89 Other viral agents as the cause of diseases classified elsewhere